=== PATIENT | female | born 1950 | race Caucasian/White ===

== ENCOUNTER → 2017-11-27 | Outpatient (REF) | payer MEDICARE, MEDICAID, SELFPAY | LOC: LAB 13:29 | PROVIDERS: PCP Nurse Practitioner Family; Visit Provider Nurse Practitioner Family | DX: G47.419 Narcolepsy without cataplexy (principal) | CPT/HCPCS: 84146 ==

== ENCOUNTER → 2018-01-01 18:24 | Outpatient (REF) | payer MEDICARE, MEDICAID, SELFPAY | LOC: LAB 18:24 | PROVIDERS: PCP Nurse Practitioner Family; Visit Provider Internal Medicine | DX: R35.0 Frequency of micturition (principal); R52 Pain, unspecified | CPT/HCPCS: 87077; 87086; 87186 ==

== ENCOUNTER → 2018-01-24 18:12 | Outpatient (REF) | payer MEDICARE, MEDICAID, SELFPAY ==
[2018-01-24 18:19] LABS: RBC Urine None Seen (0-5/HPF)
[2018-01-24 18:22] LABS: Appearance Urine UA CLEAR; Bilirubin Urine UA NEGATIVE (NEGATIVE); Color Urine UA YELLOW; Glucose Urine UA NEGATIVE (Normal); Ketones Urine UA NEGATIVE (NEGATIVE); Leukocyte Esterase Urine UA NEGATIVE (NEGATIVE); Nitrite Urine UA POSITIVE (Negative); Occult Blood Urine UA NEGATIVE (Negative); Protein Urine UA NEGATIVE (Negative); Specific Gravity Urine UA 1.015 (1.000-1.035); Urobilinogen Urine UA 0.2 E.U./dL (0.2); pH Urine UA 6.5 (4.5-8.0)
[2018-01-24 19:05] LABS: Bacteria Urine Many (>30); Culture Indicated Urine Specimen Cultured; Squamous Epithelial Cell Urine 0-1 /HPF; WBC Urine 1-5/HPF (0-5/HPF)
== END ==
LOC: LAB 18:12
PROVIDERS: PCP Nurse Practitioner Family; Visit Provider Registered Nurse
DX: N39.0 Urinary tract infection, site not specified (principal)
CPT/HCPCS: 81001; 87077; 87086; 87186

== ENCOUNTER → 2018-02-05 08:02 | Outpatient (REF) | payer MEDICARE, MEDICAID, SELFPAY ==
[2018-02-05 08:55] LABS: Add Manual Diff / Slide Review NO; Basophils Percent Auto 0.4 % (0-2); Eosinophils Percent Auto 2.9 % (2-4); Hematocrit 38.3 % (36-46); Hemoglobin 12.8 g/dL (12.0-16.0); Lymphocytes Percent Auto 31.5 % (25-40); Mean Corpuscular HGB Conc 33.5 % (30-36); Mean Corpuscular Hemoglobin 28.5 PG (26-34); Monocytes Percent Auto 7.5 % (3-14); Neutrophils Absolute Auto 2600 /uL (3000-5900); Neutrophils Percent Auto 57.7 % (50-75); Platelet Count 98 X10^3/uL (150-400); Red Blood Cell Count 4.51 X10^6/uL (4.0-5.2); Red Cell Distribution Width 14.5 % (11.6-14.8); White Blood Cell Count 4.5 X10^3/uL (4.5-11.0)
[2018-02-05 08:57] LABS: Alanine Aminotransferase 27 IU/L (9-52); Albumin 3.9 g/dL (3.5-5.0); Albumin Globulin Ratio 1.3 (1.0-2.8); Alkaline Phosphatase 55 U/L (38-126); Aspartate Aminotransferase 16 IU/L (14-36); BUN Creatinine Ratio 17.5 (6-22); Bilirubin Total 0.4 mg/dL (0.2-1.3); Blood Urea Nitrogen 21 mg/dL (7-17); Calcium 9.3 mg/dL (8.4-10.2); Carbon Dioxide 27 mmol/L (22-32); Chloride 104 mmol/L (98-107); Estimated Glomerular Filt Rate 44.8 mL/min (>60); Glucose 103 mg/dL (80-110); HEMOLYSIS < 15 (0-50); Potassium 4.2 mmol/L (3.4-5.1); Sodium 141 mmol/L (137-145); Total Protein 6.9 g/dL (6.3-8.2)
== END ==
LOC: LAB 08:02
PROVIDERS: PCP Nurse Practitioner Family; Visit Provider Internal Medicine
DX: N18.9 Chronic kidney disease, unspecified (principal)
CPT/HCPCS: 36415; 80053; 85025

== ENCOUNTER → 2018-02-20 15:02 | Outpatient (CLI) | payer MEDICARE, MEDICAID, SELFPAY ==
--- NOTE | 2018-02-20 | DI.CT.S_ITS ---
PROCEDURE: CT CHEST WO CON INDICATIONS: LEFT LUNG NODULE TECHNIQUE: Noncontrast 2.0-2.5 mm thick sections acquired from the pulmonary apices to the posterior costophrenic angles. 7 mm thick coronal and sagittal MIP reformats were then acquired. A low radiation dose technique was utilized. COMPARISON: [facility], CT, UPPER EXTREMITY WO CONTRAST, 09/26/2017, 13:05. FINDINGS: Image quality: Diagnostic, given the low radiation dose technique. Lungs and pleura: A 3 x 5 mm nodule at the lateral left upper lobe, series 3 image 24, correlates with the area of incidentally noted focal airspace disease 09/26/[address] workup for shoulder fracture. Mediastinum: Heart size is normal. No pericardial effusion. No mediastinal adenopathy by size criteria. Thoracic aorta and central pulmonary arteries are normal in size. Esophagus is normal in caliber. No hiatal hernia. Bones and chest wall: No suspicious bony lesions. No vertebral body compression fractures. No axillary or supraclavicular adenopathy by size criteria. Thyroid gland appears normal where well visualized. Abdomen: Visualized upper abdomen solid organs and bowel loops appear normal in the absence of contrast. IMPRESSION: 3 x 5 mm nodule stable over time lateral left upper lobe, found incidentally and without any additional lesion elsewhere. A small nodule of this size would generally not received followup in the low-risk patient and optional A. in a high risk patient could receive followup CT scanning, noncontrast, to confirm stability over time in 12 months from now. Fleischner Society criteria for SOLID lung nodule followup. Nodule size (mm)Low-risk patientHigh-risk patient<6 (single or multiple)No routine followup.Optional CT at 12 months. 6-8 (single or multiple)CT at 6-12 months, then optional CT at 18-24 mo.CT at 6-12 months, then CT at 18-24 months. >8 (single)CT at 3 months, PET-CT, or biopsy. Same as for low-risk pts. >8 (multiple)CT at 3-6 months, then optional CT at 18-24 mo.CT at 3-6 months, then CT at 18-24 months. Dictated by: Shayne Villanueva M.D. on 02/20/2018 at 16:37 Approved by: Shayne Villanueva M.D. on 02/20/2018 at 16:41
== END ==
PROVIDERS: PCP Nurse Practitioner Family; Visit Provider Nurse Practitioner Family
DX: R91.1 Solitary pulmonary nodule (principal)
CPT/HCPCS: 71250

== ENCOUNTER 2018-02-22 19:26 | Emergency (ER) | payer MEDICARE, MEDICAID, SELFPAY ==
[2018-02-22 19:46] VITALS: BP 167/98; PULSE 63; RESP 18; TEMP 36.3; O2SAT 97; BMI 32.2
[2018-02-22 22:07] VITALS: BP 179/90; PULSE 60; RESP 18; TEMP 36.6; O2SAT 96
--- NOTE | 2018-02-22 23:22 | ED.BACK ---
HPI - Back Pain/Injury General Chief Complaint: Back Pain/Injury Stated Complaint: FELL A COUPLE DAYS AGO,BACK PAIN Time Seen by Provider: 02/22/18 22:06 Source: patient Mode of arrival: ambulatory Limitations: no limitations History of Present Illness HPI Narrative: 67-year-old female presents with a chief complaint of some lumbar pain since a fall few days ago. She states she self fell backwards onto her buttocks and has had slowly worsening pain over the past few days. She denies any head or neck pain. She denies chest pain or shortness of breath. She denies any numbness, tingling or weakness down her legs. Patient denies any trouble with bowel or bladder. Patient had a CT scan of her chest just a day or 2 ago to further evaluate pulmonary nodule and the CT did not see any fractured vertebral bodies or other MD Complaint: back pain Onset (ago): day(s) Duration: constant Similar Symptoms Previously: Yes Location: lumbar spine and sacrum Severity: moderate Quality: aching Radiation: none Relieving factors: supine Exacerbating factors: movement and walking Context: fall Associated symptoms: denies other symptoms Related Data Home Medications Medication Instructions Recorded Confirmed acetaminophen ER 650 mg 650 mg PO Q4H PRN tab 02/18/18 02/18/18 tablet,extended release aspirin 81 mg tablet,delayed 81 mg PO DAILY 02/18/18 02/18/18 release atenolol 25 mg tablet 25 mg PO DAILY 02/18/18 02/18/18 atorvastatin 20 mg tablet 20 mg PO DAILY 02/18/18 02/18/18 lisinopril 20 mg tablet 20 mg PO DAILY 02/18/18 02/18/18 modafinil 200 mg tablet 200 mg PO DAILY 02/18/18 02/18/18 oxybutynin chloride ER 5 mg 2.5 mg PO BID tab 02/18/18 02/18/18 tablet,extended release 24 hr venlafaxine 75 mg tablet 75 mg PO DAILY tab 02/18/18 02/18/18 Allergies Allergy/AdvReac Type Severity Reaction Status Date / Time No Known Drug Allergies Allergy Verified 02/18/18 11:24 Review of Systems Review of Systems All systems reviewed & are unremarkable except as noted in HPI and below Constitutional Denies chills, Denies fever(s), Denies lethargy and Denies weakness Eyes Denies change in vision, Denies eye discharge, Denies irritation and Denies loss of vision ENT Ears, Nose, Mouth, and Throat: Denies change in voice, Denies neck pain and Denies sore throat Cardiovascular Denies chest pain, Denies irregular heart rhythm, Denies lightheadedness, Denies palpitations, Denies dyspnea, Denies dyspnea on exertion and Denies orthopnea Respiratory Denies cough, Denies dyspnea, Denies dyspnea on exertion and Denies wheezing Gastrointestinal Gastrointestinal: Denies abdominal pain, Denies change in bowel habits, Denies diarrhea, Denies nausea and Denies vomiting Genitourinary Denies hematuria, Denies flank pain, Denies urinary incontinence and Denies urinary urgency Musculoskeletal Reports back pain and Denies neck pain Integumentary/Breasts Denies pruritus, Denies erythema, Denies rash and Denies wounds Neurologic Denies confusion, Denies loss of vision and Denies weakness Psychiatric Denies anxiety, Denies confusion, Denies depression, Denies homicidal ideation and Denies suicidal ideation Endocrine Denies palpitations Hematologic/Lymphatic Denies easy bruising Allergic/Immunologic Denies wheezing PFSH Medical History Hypertension (Acute) Narcolepsy and cataplexy (Acute) Stroke (Acute) Surgical History History of section (Acute) Social History Smoking Status: Former smoker alcohol intake: never substance use type: does not use caffeine: Yes (12 cups a day) Exam Initial Vital Signs Initial Vital Signs: Vital Signs Temperature 97.3 F L 02/22/18 19:46 Pulse Rate 63 02/22/18 19:46 Respiratory Rate 18 02/22/18 19:46 Blood Pressure 167/98 H 02/22/18 19:46 Pulse Oximetry 97 02/22/18 19:46 Const General: cooperative and well developed Nutritional Appearance: well nourished Orientation: alert, awake, oriented x3 and not confused [facility] Head: normocephalic and atraumatic Ears: external ears normal and TM's normal bilaterally Nose: external nose normal and No nasal discharge Face and sinus: sinuses nontender, face symmetric, no sinus tenderness and No dry mucous membranes Mouth: oral mucosae normal and moist mucous membranes Teeth and gingiva: dentition normal Throat: tonsils normal and uvula midline Neck Neck: normal visual inspection, trachea midline, No lymphadenopathy, No midline deformity and No JVD Lymphatic: No lymphedema Resp Effort & Inspection: normal respiratory effort, able to speak in complete sentences, no respiratory distress and no use of accessory muscles Auscultation: clear to auscultation bilaterally, no rales, no rhonchi and no wheezes GI Inspection: non-distended Palpation: soft, no hepatosplenomegaly, No guarding, No pulsatile mass and No tender Auscultation: normal bowel sounds Back/Spine/Pelvis Back: back tenderness Thoracic/Lumbar Spine: thoraco-lumbar spasm and No lumbar spinal tenderness Other: Patient has no midline bony point tenderness, only in the paraspinal muscles Course Reevaluation(s) Reevaluation #1: X-rays had been ordered and patient refused and decided to leave instead, against medical advice. She refused to wait for discharge instructions or any further discussion about risks and benefits Vital Signs - 8 hr 02/22/18 22:07 Temperature 97.8 F Pulse Rate 60 Respiratory Rate 18 Blood Pressure [Left Arm] 179/90 H Pulse Oximetry 96 Discharge Plan Departure Patient Disposition: Left Against Medical Advice Discharge Date/Time: 02/22/18 23:30 Interventions: ED Discharge Assessment Last Done: 02/22/18 23:57 Prescriptions: No Action atorvastatin 20 mg tablet 20 mg PO DAILY RF: 0 venlafaxine 75 mg tablet 75 mg PO DAILY RF: 0 lisinopril 20 mg tablet 20 mg PO DAILY RF: 0 atenolol 25 mg tablet 25 mg PO DAILY RF: 0 aspirin 81 mg tablet,delayed release (DR/EC) 81 mg PO DAILY RF: 0 acetaminophen 650 mg tablet extended release 650 mg PO Q4H PRN (Reason: pain) RF: 0 modafinil 200 mg tablet 200 mg PO DAILY RF: 0 oxybutynin chloride 5 mg tablet extended release 24hr 2.5 mg PO BID RF: 0 Stand Alone Forms: Against Medical Advice
== END 2018-02-22 23:30 | disposition left against medical advice (07) ==
PROVIDERS: Emergency Provider Emergency Medicine; PCP Internal Medicine
DX: M54.9 Dorsalgia, unspecified (principal)
CPT/HCPCS: 99281; 99282

== ENCOUNTER 2018-03-08 11:13 | Emergency (ER) | payer MEDICARE, MEDICAID, SELFPAY ==
[2018-03-08 11:19] VITALS: BP 147/78; PULSE 64; RESP 18; TEMP 36.6; O2SAT 100
[2018-03-08 11:39] VITALS: BP 100/81; PULSE 62; RESP 22; O2SAT 96
[2018-03-08 11:51] LABS: Add Manual Diff / Slide Review NO; Basophils Percent Auto 0.7 % (0-2); Eosinophils Percent Auto 2.7 % (2-4); Hematocrit 37.9 % (36-46); Hemoglobin 12.7 g/dL (12.0-16.0); Lymphocytes Percent Auto 26.4 % (25-40); Mean Corpuscular HGB Conc 33.6 % (30-36); Mean Corpuscular Hemoglobin 28.9 PG (26-34); Mean Corpuscular Volume 85.9 fL (80-100); Monocytes Percent Auto 9.6 % (3-14); Neutrophils Absolute Auto 2900 /uL (3000-5900); Neutrophils Percent Auto 60.6 % (50-75); Platelet Count 130 X10^3/uL (150-400); Red Blood Cell Count 4.41 X10^6/uL (4.0-5.2); Red Cell Distribution Width 14.5 % (11.6-14.8); White Blood Cell Count 4.7 X10^3/uL (4.5-11.0)
[2018-03-08 12:03] LABS: Alanine Aminotransferase 26 IU/L (9-52); Albumin Globulin Ratio 1.4 (1.0-2.8); Alkaline Phosphatase 86 U/L (38-126); Aspartate Aminotransferase 21 IU/L (14-36); BUN Creatinine Ratio 23.6 (6-22); Bilirubin Total 0.6 mg/dL (0.2-1.3); Blood Urea Nitrogen 26 mg/dL (7-17); Calcium 9.5 mg/dL (8.4-10.2); Carbon Dioxide 31 mmol/L (22-32); Chloride 101 mmol/L (98-107); Creatine Kinase 65 U/L (30-135); Estimated Glomerular Filt Rate 49.5 mL/min (>60); Globulin 2.9 g/dL (1.7-4.1); Glucose 95 mg/dL (80-110); HEMOLYSIS 23 (0-50); Potassium 4.6 mmol/L (3.4-5.1); Sodium 141 mmol/L (137-145); Total Protein 6.9 g/dL (6.3-8.2)
[2018-03-08 12:15] LABS: Troponin I < 0.012 ng/mL (0.01-0.034)
[2018-03-08 13:02] VITALS: BP 131/71; PULSE 57; RESP 14; O2SAT 98
[2018-03-08 14:37] LABS: Bacteria Urine None Seen; WBC Urine None Seen (0-5/HPF)
[2018-03-08 14:38] LABS: Culture Indicated Urine Cult Not Indicated; RBC Urine 0-1/HPF (0-5/HPF)
--- NOTE | 2018-03-08 15:16 | ED.DIZZY ---
HPI - Dizziness General Chief Complaint: Syncope Stated Complaint: Seizure History of Present Illness HPI Narrative: HPI 67-year-old female with history of narcolepsy and cataplexy presents for evaluation of a brief period of weakness in which she collapsed to the ground without LOC. Patient reports that she felt both legs shaking, she then slumped to the ground, the patient sustained no trauma when she fell to the ground, but is concerned that she had a seizure. Patient reports similar prior episodes that she attributes to seizures. Patient denies losing consciousness during these events but will slumped to the ground with shaking of her bilateral lower extremities. * Denies chest pain, shortness of breath, double vision, neck pain, vertigo, headache, arm pain, arm paresthesias, arm numbness, or focal weakness or sensory at change now or the time of their event. * Denies recent chiropractic manipulation of their neck, neck trauma or strains. * Denies incontinence, denies post-syncope confusion. M/S/F/SocHx notable for: please see HPI; remainder reviewed with patient and in chart. ROS: Negative constitutional, eye, cardiovascular, pulmonary, GI, , MSK, skin, neurologic, psychiatric, endocrine unless noted in the HPI. Exam Gen: Pleasant, non-toxic appearing, resting comfortably. HEENT: NC, AT, PEERL, EOMI. Resp: Clear to auscultation bilaterally with a normal work of breathing and no accessory muscle usage. Card: Regular rate and rhythm with no murmurs rubs or gallops, extremities are warm and well perfused, no JVD. GI: Nontender to palpation throughout all quadrants, nondistended : Deferred MSK: No visible deformities, strength and tone WNL. Skin: Normal color with no visible lesions. Neuro: Gen AO x 3, no facial asymmetry, no gaze preference, no slurring of speech. Pupils equal and reactive, EOMI, no facial asymmetry, no nystagmus, phonation intact, SCM 5/5 bilaterally. Cerebellar: bilateral upper extremities without dysmetria. Psych: Mood and affect appropriate. Labs / Imaging (pertinent): WBC 4.7, HB 12.7, NA 141, K 4.6, troponin <0.012 EKG: SR at [address]-segment elevations or depressions, T-wave inversions or new LBBB. OK interval 168 msec, QTc 442 msec, no delta waves, epsilon waves, coved or saddle ST-segment changes in leads V1-3, preseptal or inferior lead Q-waves, biphasic P-waves, or T-wave inversions; no LVH. MDM Previous chart, nursing note, and vitals reviewed. A: 67-year-old female with history of narcolepsy and cataplexy presents for evaluation of a brief period of weakness in which she collapsed to the ground without LOC. DDx and evaluation: strongly suspect the patient had a brief spell of narcolepsy with cataplexy. Seizure effectively excluded given the absence of a documented seizure history, prescription of antiepileptics, and the patient maintaining consciousness while having shaking of the bilateral lower extremities. Also considered and felt to be effectively excluded are the following: * Anemia - Hemoglobin clinically within normal limits. * Cardiac - EKG labs and history without evidence of ACS, AV-block, WPW syndrome, Brugada syndrome, HCM, Long or Short QT-syndrome, or arrhythmogenic RV dysplasia. Heart sounds WNL on exam, no evidence of valvular abnormalities by history or auscultation. * Obstructive - Doubt PE, tamponade, or pulmonary hypertension based upon lack of shortness of breath, chest pain, or historical risk factors on history and the absence of hypoxemia, tachycardia, hypotension, or JVD on exam. * Vascular - As there are no identifiable risk factors on history (injury risk factors, vertiginous symptoms, diplopia, vision changes, TIA risk factors or prior similar events) further evaluation of a possible vertebrobasilar insufficiency. Furthermore, as the patient denies neck pain, recent neck trauma, and there is no evidence of a partial Lamonte's syndrome, a carotid or vertebral dissection is felt to be unlikely and imaging is not indicated. Similarly, the absence of focal arm symptoms and symmetric perfusion of the upper extremities effectively excludes emergent evaluation of any possible subclavian steal syndrome. Lastly, given the absence of chest pain aortic dissection further evaluation of any possible dissection is not warranted. Patient also without abdominal pain on history or exam, no evidence of AAA. * Electrolyte - Electrolytes clinically within normal limits. * Hypotension (hypovolemia vs vasovagal vs autonomic instability) - SBP clinically within normal limits. 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 ED Course: no acute clinically appreciable changes. Disposition: discharge with PCP follow-up as needed. Impression: cataplexy (please reference below for remainder of encounter information) Related Data Home Medications Medication Instructions Recorded Confirmed acetaminophen ER 650 mg 650 mg PO Q4H PRN tab 02/18/18 03/08/18 tablet,extended release atenolol 25 mg tablet 25 mg PO DAILY 02/18/18 03/08/18 atorvastatin 20 mg tablet 20 mg PO DAILY 02/18/18 03/08/18 lisinopril 20 mg tablet 20 mg PO DAILY 02/18/18 03/08/18 modafinil 200 mg tablet 200 mg PO DAILY 02/18/18 03/08/18 venlafaxine 75 mg tablet 75 mg PO DAILY tab 02/18/18 03/08/18 aspirin 81 mg PO DAILY 03/08/18 03/08/18 bisacodyl 5 - 10 mg PO PRN PRN 03/08/18 03/08/18 bisacodyl 10 mg OK PRN PRN 03/08/18 03/08/18 lidocaine 1 patch TOPICAL Q12H 03/08/18 03/08/18 Allergies Allergy/AdvReac Type Severity Reaction Status Date / Time No Known Drug Allergies Allergy Verified 02/18/18 11:24 PFSH Medical History Hypertension (Acute) Narcolepsy and cataplexy (Acute) Stroke (Acute) Surgical History History of section (Acute) Social History Smoking Status: Former smoker alcohol intake: never substance use type: does not use caffeine: Yes (12 cups a day) Exam Initial Vital Signs Initial Vital Signs: Vital Signs Temperature 98 F 03/08/18 11:19 Pulse Rate 64 03/08/18 11:19 Respiratory Rate 18 03/08/18 11:19 Blood Pressure 147/78 H 03/08/18 11:19 Pulse Oximetry 100 03/08/18 11:19 Course Orders Ordered: ED Orders 03/08/18 11:20 EKG-12 Lead Stat 03/08/18 11:45 Complete Blood Count AUTO DIFF Stat Comprehensive Metabolic Panel Stat Troponin & CK Cardiac Panel Stat Vital Signs - 8 hr 03/08/18 11:19 03/08/18 11:39 03/08/18 13:02 Temperature 98 F Pulse Rate 64 62 57 L Respiratory Rate 18 22 14 Blood Pressure 147/78 H Blood Pressure [Left Arm] 100/81 H 131/71 H Pulse Oximetry 100 96 98 MDM - Dizziness Lab Data Result diagrams: 03/08/18 11:45 03/08/18 11:45 Lab Results 03/08/18 03/08/18 03/08/18 Range/Units 11:45 11:45 Unknown WBC 4.7 (4.5-11.0) X10^3/uL RBC 4.41 (4.0-5.2) X10^6/uL Hgb 12.7 (12.0-16.0) g/dL Hct 37.9 (36-46) % MCV 85.9 (80-100) fL MCH 28.9 (26-34) PG MCHC 33.6 (30-36) % RDW 14.5 (11.6-14.8) % Plt Count 130 L (150-400) X10^3/uL Neut % (Auto) 60.6 (50-75) % Lymph % (Auto) 26.4 (25-40) % [place] % (Auto) 9.6 (3-14) % Eos % (Auto) 2.7 (2-4) % Baso % (Auto) 0.7 (0-2) % Neut # (Auto) 2900 L (9446-3824) /uL Sodium 141 (137-145) mmol/L Potassium 4.6 (3.4-5.1) mmol/L Chloride 101 (98-107) mmol/L Carbon Dioxide 31 (22-32) mmol/L BUN 26 H (7-17) mg/dL Creatinine 1.10 H (0.52-1.04) mg/dL Estimated GFR 49.5 L (>60) mL/min BUN/Creatinine Ratio 23.6 H (6-22) Glucose 95 (80-110) mg/dL Calcium 9.5 (8.4-10.2) mg/dL Total Bilirubin 0.6 (0.2-1.3) mg/dL AST 21 (14-36) IU/L ALT 26 (9-52) IU/L Alkaline Phosphatase 86 (38-126) U/L Total Creatine Kinase 65 (30-135) U/L Troponin I < 0.012 (0.01-0.034) ng/mL Total Protein 6.9 (6.3-8.2) g/dL Albumin 4.0 (3.5-5.0) g/dL Globulin 2.9 (1.7-4.1) g/dL Albumin/Globulin Ratio 1.4 (1.0-2.8) Urine RBC 0-1/hpf (0-5/HPF) Urine WBC None seen (0-5/HPF) Urine Bacteria None seen (None) Ur Culture Indicated? Cult not indicated Micro UA Comment Not Reportable Discharge Plan Departure Prescriptions: No Action bisacodyl 10 mg Suppository 10 mg OK PRN PRN (Reason: no bm x 5 days) RF: 0 aspirin 81 mg Tablet,Chewable 81 mg PO DAILY RF: 0 bisacodyl 5 mg Tablet 5 - 10 mg PO PRN PRN (Reason: no bm in 3-4 days) RF: 0 lidocaine 4 % Gel 1 patch Topical Q12H RF: 0 atorvastatin 20 mg tablet 20 mg PO DAILY RF: 0 venlafaxine 75 mg tablet 75 mg PO DAILY RF: 0 lisinopril 20 mg tablet 20 mg PO DAILY RF: 0 atenolol 25 mg tablet 25 mg PO DAILY RF: 0 acetaminophen 650 mg tablet extended release 650 mg PO Q4H PRN (Reason: pain) RF: 0 modafinil 200 mg tablet 200 mg PO DAILY RF: 0
[2018-03-08] MEDS: ACETAMINOPHEN 325 MG TABLET 975 MG PO (15:30)
[2018-03-08 15:40] VITALS: BP 182/97; PULSE 59; RESP 18; O2SAT 100
== END 2018-03-08 15:41 | disposition home or self-care (01) ==
PROVIDERS: Emergency Provider Emergency Medicine; PCP Internal Medicine
DX: G47.411 Narcolepsy with cataplexy (principal); W18.30XA Fall on same level, unspecified, initial encounter
CPT/HCPCS: 36591; 80053; 81003; 81015; 82550; 82553; 84484; 85025; 93005; 93010; 99283; 99284

== ENCOUNTER → 2018-03-21 13:44 | Outpatient (CLI) | payer MEDICARE, MEDICAID, SELFPAY ==
--- NOTE | 2018-03-21 | DI.RAD.S_ITS ---
PROCEDURE: XR LUMBAR SPINE 2-3V INDICATIONS: FALL TECHNIQUE: 3 views of the lumbar spine were acquired. COMPARISON: None. FINDINGS: Bones: 5 [id number] vertebrae are present. There is normal bony alignment. Age indeterminate anterior wedge compression deformity involving superior endplate of L2 vertebral body is seen with approximately 20% loss of L2 vertebral body height anteriorly. No other compression fracture is seen. Mild degenerative disc disease throughout lumbar spine is seen. No suspicious bony lesions. Soft tissues: Overlying bowel gas pattern is normal. No suspicious soft tissue calcifications. IMPRESSION: Age-indeterminate anterior wedge compression deformity involving L2 vertebral body. No evidence of traumatic spondylolisthesis. Dictated by: Sony Holland M.D. on 03/21/2018 at 14:27 Approved by: Sony Holland M.D. on 03/21/2018 at 14:28
--- NOTE | 2018-03-21 | DI.RAD.S_ITS ---
PROCEDURE: XR ANKLE LT MIN 3V INDICATIONS: FALL TECHNIQUE: 3 views of the ankle were acquired. COMPARISON: None. FINDINGS: Bones: No fractures or dislocations. Ankle mortise is normally aligned. No suspicious bony lesions. Soft tissues: No tibiotalar joint effusion. Achilles tendon appears normal. Soft tissue swelling around ankle joint is seen particularly over medial malleolus. IMPRESSION: No acute ankle fracture or dislocation. Dictated by: Sony Holland M.D. on 03/21/2018 at 14:26 Approved by: Sony Holland M.D. on 03/21/2018 at 14:27
== END ==
PROVIDERS: PCP Internal Medicine; Visit Provider Internal Medicine
DX: S99.912A Unspecified injury of left ankle, initial encounter (principal); S39.92XA Unspecified injury of lower back, initial encounter; M25.472 Effusion, left ankle
CPT/HCPCS: 72100; 73610

== ENCOUNTER → 2018-04-02 08:35 | Outpatient (CLI) | payer MEDICARE, MEDICAID, SELFPAY ==
--- NOTE | 2018-04-02 | DI.US.S_ITS ---
PROCEDURE: US PERIPH VENOUS LOW EXTREM LT INDICATIONS: PAIN AND SWELLING LEFT LOWER EXTREMITY TECHNIQUE: Real-time imaging, as well as color and pulse Doppler interrogation, were performed of the lower extremity deep veins from the inguinal ligament to the popliteal fossa. COMPARISON: None. FINDINGS: The deep veins are normally compressible, and free of intraluminal thrombus. Color and pulse Doppler demonstrate normal phasic intraluminal flow. There is normal augmentation response to distal compression maneuver. IMPRESSION: No evidence of left lower extremity deep vein thrombosis. Dictated by: Roc Doyle M.D. on 04/02/2018 at 9:12 Approved by: Roc Doyle M.D. on 04/02/2018 at 9:12
== END ==
PROVIDERS: PCP Internal Medicine; Visit Provider Nurse Practitioner Family
DX: M79.89 Other specified soft tissue disorders (principal); M79.605 Pain in left leg
CPT/HCPCS: 93971

== ENCOUNTER → 2018-06-25 07:45 | Outpatient (REF) | payer MEDICARE, MEDICAID, SELFPAY ==
[2018-06-25 08:10] LABS: Add Manual Diff / Slide Review NO; Basophils Percent Auto 0.2 % (0-2); Eosinophils Percent Auto 0.2 % (2-4); Hematocrit 40.7 % (36-46); Hemoglobin 13.3 g/dL (12.0-16.0); Lymphocytes Percent Auto 38.2 % (25-40); Mean Corpuscular HGB Conc 32.6 % (30-36); Mean Corpuscular Hemoglobin 28.3 PG (26-34); Mean Corpuscular Volume 86.8 fL (80-100); Monocytes Percent Auto 7.7 % (3-14); Neutrophils Absolute Auto 2200 /uL (3000-5900); Neutrophils Percent Auto 53.7 % (50-75); Platelet Count 95 X10^3/uL (150-400); Red Blood Cell Count 4.69 X10^6/uL (4.0-5.2); Red Cell Distribution Width 14.1 % (11.6-14.8); White Blood Cell Count 4.1 X10^3/uL (4.5-11.0)
[2018-06-25 08:22] LABS: Blood Urea Nitrogen 24 mg/dL (7-17); Calcium 8.9 mg/dL (8.4-10.2); Carbon Dioxide 28 mmol/L (22-32); Chloride 103 mmol/L (98-107); Estimated Glomerular Filt Rate 55.1 mL/min (>60); Glucose 95 mg/dL (80-110); HEMOLYSIS 47 (0-50); Potassium 4.4 mmol/L (3.4-5.1); Sodium 141 mmol/L (137-145)
== END ==
LOC: LAB 07:45
PROVIDERS: PCP Internal Medicine; Visit Provider Internal Medicine
DX: I10 Essential (primary) hypertension (principal)
CPT/HCPCS: 36415; 80048; 85025

== ENCOUNTER → 2018-08-13 07:36 | Outpatient (REF) | payer MEDICARE, MEDICAID, SELFPAY ==
[2018-08-13 09:13] LABS: BUN Creatinine Ratio 21.7 (6-22); Blood Urea Nitrogen 26 mg/dL (7-17); Calcium 9.6 mg/dL (8.4-10.2); Carbon Dioxide 27 mmol/L (22-32); Chloride 104 mmol/L (98-107); Estimated Glomerular Filt Rate 44.7 mL/min (>60); Glucose 132 mg/dL (80-110); HEMOLYSIS < 15 (0-50); Potassium 4.4 mmol/L (3.4-5.1); Sodium 139 mmol/L (137-145)
== END ==
LOC: LAB 07:36
PROVIDERS: PCP Internal Medicine; Visit Provider Nurse Practitioner Family
DX: I10 Essential (primary) hypertension (principal)
CPT/HCPCS: 36415; 80048

== ENCOUNTER → 2018-08-29 07:37 | Outpatient (REF) | payer MEDICARE, MEDICAID, SELFPAY ==
[2018-08-29 08:16] LABS: Blood Urea Nitrogen 30 mg/dL (7-17); Calcium 9.4 mg/dL (8.4-10.2); Carbon Dioxide 28 mmol/L (22-32); Chloride 101 mmol/L (98-107); Estimated Glomerular Filt Rate 55.1 mL/min (>60); Glucose 99 mg/dL (80-110); HEMOLYSIS 40 (0-50); Potassium 4.2 mmol/L (3.4-5.1); Sodium 137 mmol/L (137-145)
== END ==
LOC: LAB 07:37
PROVIDERS: PCP Internal Medicine; Visit Provider Nurse Practitioner Family
DX: I10 Essential (primary) hypertension (principal); Z79.899 Other long term (current) drug therapy
CPT/HCPCS: 36415; 80048

== ENCOUNTER → 2018-09-10 08:03 | Outpatient (REF) | payer MEDICARE, MEDICAID, SELFPAY ==
[2018-09-10 09:17] LABS: BUN Creatinine Ratio 20.8 (6-22); Blood Urea Nitrogen 25 mg/dL (7-17); Calcium 9.6 mg/dL (8.4-10.2); Carbon Dioxide 27 mmol/L (22-32); Chloride 102 mmol/L (98-107); Estimated Glomerular Filt Rate 44.7 mL/min (>60); Glucose 107 mg/dL (80-110); HEMOLYSIS < 15 (0-50); Potassium 4.3 mmol/L (3.4-5.1); Sodium 137 mmol/L (137-145)
== END ==
LOC: LAB 08:03
PROVIDERS: PCP Internal Medicine; Visit Provider Nurse Practitioner Family
DX: N18.9 Chronic kidney disease, unspecified (principal)
CPT/HCPCS: 36415; 80048

== ENCOUNTER → 2018-10-01 07:14 | Outpatient (REF) | payer MEDICARE, MEDICAID, SELFPAY ==
[2018-10-10 13:35] LABS: Hepatitis B Surface Antigen NONREACTIVE
[2018-10-10 13:36] LABS: Hepatitis A Antibody IgM NONREACTIVE; Hepatitis B Core Antibody IgM NONREACTIVE
[2018-10-10 13:37] LABS: Hepatitis C Antibody REACTIVE
== END ==
LOC: LAB 07:14
PROVIDERS: PCP Internal Medicine; Visit Provider Nurse Practitioner Family
DX: Z20.5 Contact with and (suspected) exposure to viral hepatitis (principal)
CPT/HCPCS: 36415; 80074

== ENCOUNTER → 2018-10-10 07:55 | Outpatient (REF) | payer MEDICARE, MEDICAID, SELFPAY ==
[2018-10-10 08:28] LABS: Add Manual Diff / Slide Review NO; Basophils Absolute Auto 0 /uL (0-100); Basophils Percent Auto 0.2 % (0-2); Eosinophils Absolute Auto 0 /uL (0-450); Hematocrit 39.3 % (36-46); Hemoglobin 12.7 g/dL (12.0-16.0); Lymphocytes Absolute Auto 1700 /uL (1100-4500); Lymphocytes Percent Auto 34.9 % (25-40); Mean Corpuscular HGB Conc 32.4 % (30-36); Mean Corpuscular Hemoglobin 28.2 PG (26-34); Mean Corpuscular Volume 87.2 fL (80-100); Monocytes Absolute Auto 500 /uL (0-900); Neutrophils Absolute Auto 2700 /uL (1500-7000); Neutrophils Percent Auto 53.9 % (50-75); Platelet Count 110 X10^3/uL (150-400); Red Blood Cell Count 4.51 X10^6/uL (4.0-5.2); Red Cell Distribution Width 14.3 % (11.6-14.8); White Blood Cell Count 4.9 X10^3/uL (4.5-11.0)
[2018-10-10 08:45] LABS: BUN Creatinine Ratio 21.7 (6-22); Blood Urea Nitrogen 26 mg/dL (7-17); Calcium 9.5 mg/dL (8.4-10.2); Carbon Dioxide 30 mmol/L (22-32); Chloride 97 mmol/L (98-107); Estimated Glomerular Filt Rate 44.7 mL/min (>60); Glucose 107 mg/dL (80-110); HEMOLYSIS < 15 (0-50); Potassium 3.8 mmol/L (3.4-5.1); Sodium 136 mmol/L (137-145)
== END ==
LOC: LAB 07:55
PROVIDERS: PCP Internal Medicine; Visit Provider Nurse Practitioner Family
DX: N18.9 Chronic kidney disease, unspecified (principal); Z79.899 Other long term (current) drug therapy
CPT/HCPCS: 36415; 80048; 85025

== ENCOUNTER → 2018-10-30 12:45 | Outpatient (CLI) | payer MEDICARE, MEDICAID, SELFPAY ==
--- NOTE | 2018-10-30 | DI.MG.S_ITS ---
BILATERAL DIGITAL DIAGNOSTIC MAMMOGRAM 3D/2D: 10/30/2018 CLINICAL: Left breast pain. Comparison is made to exams dated: 08/26/2013 mammogram - [facility], 11/06/2017 mammogram - [facility], and 08/04/2013 mammogram - [facility]. There are scattered fibroglandular elements in both breasts. There is a stable benign irregular mass with dystrophic calcifications in the right axillary tail. There is a biopsy clip associated with the mass. No significant changes. Corresponding to the patient's area of pain in the left axillary tail, there are no suspicious mammographic findings. Benign appearing lymph nodes are present. No other suspicious masses or calcifications are seen in either breast. IMPRESSION: INCOMPLETE: NEEDS ADDITIONAL IMAGING EVALUATION No mammographic findings to correspond to patient's area of pain. An ultrasound for further evaluation is recommended and was performed immediately following this exam. Post biopsy findings in the right upper outer breast are stable compared to prior. Patient should return to yearly screening mammography. This exam was interpreted at Station ID: [id number]. NOTE: For mammograms, a report in lay terms will be sent to the patient. Approximately 15% of breast malignancies will not be visualized mammographically. In the management of a palpable breast mass, a negative mammogram must not discourage biopsy of a clinically suspicious lesion. Electronically Signed By: Janine hodges/:10/30/2018 14:42:21 ACR BI-RADS Category 0: Incomplete [id number]
--- NOTE | 2018-10-30 | DI.US.S_ITS ---
ULTRASOUND OF LEFT BREAST AND AXILLA: 10/30/2018 CLINICAL: Focal left axilla pain. Comparison is made to exams dated: 10/30/2018 mammogram and 11/06/2017 mammogram - [facility]. Ultrasound of the left breast and axilla was performed. No abnormalities were seen sonographically in the left breast or the left axilla in the patient's area of pain. IMPRESSION: NEGATIVE There is no sonographic evidence of malignancy or other finding to correlate to patient's area of pain. A 1 year screening mammogram is recommended. Findings and recommendations were conveyed to the patient. This exam was interpreted at Station ID: [id number]. Electronically Signed By: Janine hodges/:10/30/2018 14:46:28 letter sent: Normal Exam Ultrasound BI-RADS: 1 Negative
== END ==
PROVIDERS: PCP Internal Medicine; Visit Provider Internal Medicine
DX: R92.8 Other abnormal and inconclusive findings on diagnostic imaging of breast (principal); N64.4 Mastodynia
CPT/HCPCS: 76642; 77066; G0279

== ENCOUNTER → 2018-11-15 11:02 | Outpatient (CLI) | payer MEDICARE, MEDICAID, SELFPAY ==
--- NOTE | 2018-11-15 | DI.MRI.S_ITS ---
PROCEDURE: MR THORACIC SPINE WO CON INDICATIONS: CHRONIC BACK PAIN TECHNIQUE: Noncontrast sagittal T1 spine echo and T2 fast spin echo, sagittal STIR, axial T1 and T2 fast spin echo through the thoracic spine. COMPARISON: None. FINDINGS: Image quality: Excellent. Alignment and Curvature: There is normal bony alignment. Convex left curvature of the cervicothoracic junction noted. Bones: Mild reactive endplate change is noted adjacent to the T1-T2, T2-T3, T3-T4 and T10-T11 discs. Schmorl's node noted in the superior endplate of the T11 vertebral body with reactive change. No acute vertebral body compression fractures. Spinal Cord: Visualized spinal cord is normal in size and signal. Paraspinous Soft Tissues: No paravertebral masses. Bilateral renal cysts are noted. Miscellaneous: Moderate degenerative changes noted throughout the thoracic spine. Mild facet arthropathy noted throughout the thoracic spine. No central stenosis. No significant neural foraminal narrowing. No neural impingement. IMPRESSION: 1. Multilevel degenerative disc disease. 2. Multilevel facet arthropathy. 3. No neural foraminal narrowing 4. No significant neural foraminal narrowing. 5. No neural impingement. 6. No vertebral body compression fractures. 7. T11 superior endplate Schmorl's node which may be acute. Dictated by: Leslie Beverly MD, PhD on 11/15/2018 at 16:57 Approved by: Leslie Beverly MD, PhD on 11/15/2018 at 17:03
== END ==
PROVIDERS: PCP Internal Medicine; Visit Provider Nurse Practitioner Family
DX: M54.89 Other dorsalgia (principal); M51.34 Other intervertebral disc degeneration, thoracic region; M50.90 Cervical disc disorder, unspecified, unspecified cervical region; M12.88 Other specific arthropathies, not elsewhere classified, other specified site
CPT/HCPCS: 72146

== ENCOUNTER → 2018-12-10 09:48 | Outpatient (ROUT) | payer MEDICARE, MEDICAID, SELFPAY ==
[2018-12-10 10:12] LABS: Add Manual Diff / Slide Review NO; Basophils Absolute Auto 0 /uL (0-100); Basophils Percent Auto 0.3 % (0-2); Eosinophils Absolute Auto 0 /uL (0-450); Eosinophils Percent Auto 0.1 % (2-4); Hematocrit 40.3 % (36-46); Hemoglobin 13.3 g/dL (12.0-16.0); Lymphocytes Absolute Auto 1400 /uL (1100-4500); Lymphocytes Percent Auto 28.3 % (25-40); Mean Corpuscular Hemoglobin 28.3 PG (26-34); Mean Corpuscular Volume 85.7 fL (80-100); Monocytes Absolute Auto 400 /uL (0-900); Monocytes Percent Auto 8.8 % (3-14); Neutrophils Absolute Auto 3200 /uL (1500-7000); Neutrophils Percent Auto 62.5 % (50-75); Platelet Count 143 X10^3/uL (150-400)
[2018-12-10 10:28] LABS: Alanine Aminotransferase 58 IU/L (9-52); Albumin Globulin Ratio 1.2 (1.0-2.8); Alkaline Phosphatase 94 U/L (38-126); Aspartate Aminotransferase 36 IU/L (14-36); BUN Creatinine Ratio 26.4 (6-22); Bilirubin Total 0.3 mg/dL (0.2-1.3); Blood Urea Nitrogen 29 mg/dL (7-17); Calcium 9.6 mg/dL (8.4-10.2); Carbon Dioxide 28 mmol/L (22-32); Chloride 98 mmol/L (98-107); Estimated Glomerular Filt Rate 49.4 mL/min (>60); Globulin 3.3 g/dL (1.7-4.1); Glucose 102 mg/dL (80-110); HEMOLYSIS < 15 (0-50); Potassium 4.4 mmol/L (3.4-5.1); Sodium 137 mmol/L (137-145); Total Protein 7.3 g/dL (6.3-8.2)
[2018-12-10 10:51] LABS: Thyroid Stimulating Hormone 2.55 uIU/mL (0.47-4.68)
[2018-12-10 11:14] LABS: Vitamin B12 420 pg/mL (239-931)
== END ==
PROVIDERS: PCP Internal Medicine; Visit Provider Internal Medicine
DX: R53.83 Other fatigue (principal)
CPT/HCPCS: 36415; 80053; 82607; 84443; 85025

== ENCOUNTER → 2019-03-13 07:37 | Outpatient (ROUT) | payer MEDICARE, MEDICAID, SELFPAY ==
[2019-03-13 08:05] LABS: BUN Creatinine Ratio 20.9 (6-22); Blood Urea Nitrogen 23 mg/dL (7-17); Calcium 9.8 mg/dL (8.4-10.2); Carbon Dioxide 31 mmol/L (22-32); Chloride 99 mmol/L (98-107); Estimated Glomerular Filt Rate 49.2 mL/min (>60); Glucose 102 mg/dL (80-110); HEMOLYSIS < 15 (0-50); Potassium 4.2 mmol/L (3.4-5.1); Sodium 138 mmol/L (137-145)
== END ==
PROVIDERS: PCP Internal Medicine; Visit Provider Internal Medicine
DX: N18.9 Chronic kidney disease, unspecified (principal)
CPT/HCPCS: 36415; 80048

== ENCOUNTER → 2019-04-16 09:47 | Outpatient (CLI) | payer MEDICARE, MEDICAID, SELFPAY ==
--- NOTE | 2019-04-16 | DI.RAD.S_ITS ---
PROCEDURE: XR SHOULDER LT MIN 2V INDICATIONS: LT SHOULDER PAIN TECHNIQUE: 3 views of the shoulder were acquired. COMPARISON: [facility] [place], JAMEL, XR SHOULDER 2+ VIEWS LEFT, 11/21/2017, 15:11. FINDINGS: Bones: There are healed fracture deformities from previously seen impacted proximal humeral fracture at the humeral neck. Subtle transverse lucency remains near the previously seen fracture site. No acute fractures. Left shoulder remain stable. No suspicious bony lesions. Visualized ribs appear intact. Degenerative changes of the left a.c. joint. Soft tissues: No suspicious soft tissue calcifications. IMPRESSION: 1. Healed fracture deformities of the proximal left humerus with subtle transverse lucency near the previously visualized fracture site. This may be secondary to superimposition of remote posttraumatic changes. However, if there is focal pain in this region, consider further evaluation with advanced imaging such as CT, MRI, or limited bone scan. 2. Mild degenerative changes of the left acromioclavicular joint. Dictated by: Ranulfo Camarena M.D. on 04/16/2019 at 11:34 Approved by: Ranulfo Camarena M.D. on 04/16/2019 at 11:37
== END ==
PROVIDERS: PCP Internal Medicine; Visit Provider Internal Medicine
DX: M25.512 Pain in left shoulder (principal)
CPT/HCPCS: 73030

== ENCOUNTER → 2019-06-12 08:20 | Outpatient (ROUT) | payer MEDICARE, MEDICAID, SELFPAY ==
[2019-06-12 08:55] LABS: Add Manual Diff / Slide Review NO; Basophils Absolute Auto 0 /uL (0-100); Basophils Percent Auto 0.1 % (0-2); Eosinophils Absolute Auto 0 /uL (0-450); Eosinophils Percent Auto 0.1 % (2-4); Hematocrit 37.5 % (36-46); Hemoglobin 12.7 g/dL (12.0-16.0); Lymphocytes Absolute Auto 1500 /uL (1100-4500); Lymphocytes Percent Auto 35.7 % (25-40); Mean Corpuscular Hemoglobin 29.7 PG (26-34); Mean Corpuscular Volume 87.3 fL (80-100); Monocytes Absolute Auto 400 /uL (0-900); Monocytes Percent Auto 9.8 % (3-14); Neutrophils Absolute Auto 2400 /uL (1500-7000); Neutrophils Percent Auto 54.3 % (50-75); Platelet Count 97 X10^3/uL (150-400); Red Blood Cell Count 4.29 X10^6/uL (4.0-5.2); Red Cell Distribution Width 14.1 % (11.6-14.8); White Blood Cell Count 4.3 X10^3/uL (4.5-11.0)
[2019-06-12 09:13] LABS: Blood Urea Nitrogen 26 mg/dL (7-17); Calcium 9.6 mg/dL (8.4-10.2); Carbon Dioxide 30 mmol/L (22-32); Chloride 100 mmol/L (98-107); Estimated Glomerular Filt Rate 40.6 mL/min (>60); Glucose 95 mg/dL (80-110); HEMOLYSIS < 15 (0-50); Potassium 4.1 mmol/L (3.4-5.1); Sodium 136 mmol/L (137-145)
== END ==
PROVIDERS: PCP Internal Medicine; Visit Provider Nurse Practitioner Family
DX: N18.9 Chronic kidney disease, unspecified (principal)
CPT/HCPCS: 36415; 80048; 85025

== ENCOUNTER → 2019-07-10 08:08 | Outpatient (ROUT) | payer MEDICARE, MEDICAID, SELFPAY ==
[2019-07-10 09:11] LABS: BUN Creatinine Ratio 22.3 (6-22); Blood Urea Nitrogen 29 mg/dL (7-17); Calcium 9.7 mg/dL (8.4-10.2); Carbon Dioxide 30 mmol/L (22-32); Chloride 102 mmol/L (98-107); Estimated Glomerular Filt Rate 40.6 mL/min (>60); Glucose 94 mg/dL (80-110); HEMOLYSIS < 15 (0-50); Potassium 4.1 mmol/L (3.4-5.1); Sodium 138 mmol/L (137-145)
== END ==
PROVIDERS: PCP Internal Medicine; Visit Provider Nurse Practitioner Family
DX: N18.9 Chronic kidney disease, unspecified (principal)
CPT/HCPCS: 36415; 80048

== ENCOUNTER → 2019-07-15 09:34 | Outpatient (CLI) | payer MEDICARE, MEDICAID, SELFPAY ==
--- NOTE | 2019-07-15 | DI.RAD.S_ITS ---
PROCEDURE: XR HAND LT MIN 3V INDICATIONS: hand trauma 5th finger and hand swelled TECHNIQUE: 3 views of the hand(s) acquired. COMPARISON: None. FINDINGS: Bones: Comminuted fracture since the midshaft of the fifth proximal phalanx. There is mild dorsal angulation of the distal fracture component.. Carpal bones are normally aligned. No suspicious bony lesions. Soft tissues: No suspicious soft tissue calcifications. IMPRESSION: Comminuted fifth proximal phalangeal mid shaft fracture. Dictated by: Romaine PETERSON Interpreted: Alysha Viveros MD on 07/15/2019 at 17:32 Approved by: Alysha Viveros M.D. on 07/15/2019 at 18:37
== END ==
PROVIDERS: PCP Internal Medicine; Visit Provider Internal Medicine
DX: S62.617A Displaced fracture of proximal phalanx of left little finger, initial encounter for closed fracture (principal); X58.XXXA Exposure to other specified factors, initial encounter
CPT/HCPCS: 73130

== ENCOUNTER → 2019-08-05 14:17 | Outpatient (ROUT) | payer MEDICARE, MEDICAID, SELFPAY ==
[2019-08-05 14:27] LABS: Add Manual Diff / Slide Review NO; Basophils Absolute Auto 0 /uL (0-100); Basophils Percent Auto 0.2 % (0-2); Eosinophils Absolute Auto 0 /uL (0-450); Eosinophils Percent Auto 0.2 % (2-4); Hematocrit 43.3 % (36-46); Hemoglobin 14.5 g/dL (12.0-16.0); Lymphocytes Absolute Auto 1900 /uL (1100-4500); Lymphocytes Percent Auto 33.9 % (25-40); Mean Corpuscular HGB Conc 33.6 % (30-36); Mean Corpuscular Hemoglobin 29.3 PG (26-34); Monocytes Absolute Auto 600 /uL (0-900); Monocytes Percent Auto 10.4 % (3-14); Neutrophils Absolute Auto 3100 /uL (1500-7000); Neutrophils Percent Auto 55.3 % (50-75); Platelet Count 136 X10^3/uL (150-400); Red Blood Cell Count 4.97 X10^6/uL (4.0-5.2); Red Cell Distribution Width 13.9 % (11.6-14.8); White Blood Cell Count 5.7 X10^3/uL (4.5-11.0)
[2019-08-05 15:05] LABS: Blood Urea Nitrogen 28 mg/dL (7-17); Calcium 10.4 mg/dL (8.4-10.2); Carbon Dioxide 26 mmol/L (22-32); Chloride 100 mmol/L (98-107); Estimated Glomerular Filt Rate 37.3 mL/min (>60); Glucose 94 mg/dL (80-110); HEMOLYSIS < 15 (0-50); Potassium 4.3 mmol/L (3.4-5.1); Sodium 139 mmol/L (137-145)
[2019-08-05 15:22] LABS: Prolactin 17.9 ng/mL (3.0-18.6)
== END ==
PROVIDERS: Visit Provider Internal Medicine
DX: R56.9 Unspecified convulsions (principal)
CPT/HCPCS: 80048; 83735; 84146; 85025

== ENCOUNTER → 2019-11-27 09:52 | Outpatient (ROUT) | payer MEDICARE, MEDICAID, SELFPAY ==
[2019-11-27 11:57] LABS: Add Manual Diff / Slide Review NO; Basophils Absolute Auto 0 /uL (0-100); Basophils Percent Auto 0.5 % (0-2); Eosinophils Absolute Auto 0 /uL (0-450); Eosinophils Percent Auto 0.1 % (2-4); Hematocrit 39.5 % (36-46); Hemoglobin 13.3 g/dL (12.0-16.0); Lymphocytes Absolute Auto 1600 /uL (1100-4500); Lymphocytes Percent Auto 35.5 % (25-40); Mean Corpuscular HGB Conc 33.7 % (30-36); Mean Corpuscular Hemoglobin 29.8 PG (26-34); Mean Corpuscular Volume 88.5 fL (80-100); Monocytes Absolute Auto 500 /uL (0-900); Monocytes Percent Auto 10.3 % (3-14); Neutrophils Absolute Auto 2400 /uL (1500-7000); Neutrophils Percent Auto 53.6 % (50-75); Platelet Count 94 X10^3/uL (150-400); Red Blood Cell Count 4.47 X10^6/uL (4.0-5.2); Red Cell Distribution Width 14.8 % (11.6-14.8); White Blood Cell Count 4.5 X10^3/uL (4.5-11.0)
[2019-11-27 12:37] LABS: BUN Creatinine Ratio 19.5 (6-22); Blood Urea Nitrogen 26 mg/dL (7-17); Calcium 9.9 mg/dL (8.4-10.2); Carbon Dioxide 27 mmol/L (22-32); Chloride 103 mmol/L (98-107); Estimated Glomerular Filt Rate 39.6 mL/min (>60); Glucose 80 mg/dL (80-110); HEMOLYSIS < 15 (0-50); Potassium 4.4 mmol/L (3.4-5.1); Sodium 137 mmol/L (137-145)
== END ==
PROVIDERS: PCP Internal Medicine; Visit Provider Nurse Practitioner Family
DX: Z51.81 Encounter for therapeutic drug level monitoring (principal)
CPT/HCPCS: 36415; 80048; 85025

== ENCOUNTER → 2019-12-11 20:09 | Outpatient (ROUT) | payer MEDICARE, MEDICAID, SELFPAY ==
[2019-12-11 20:12] LABS: Appearance Urine UA CLEAR; Bilirubin Urine UA NEGATIVE (NEGATIVE); Color Urine UA YELLOW; Glucose Urine UA NEGATIVE (Negative); Ketones Urine UA NEGATIVE (NEGATIVE); Leukocyte Esterase Urine UA NEGATIVE (NEGATIVE); Nitrite Urine UA NEGATIVE (Negative); Occult Blood Urine UA TRACE-INTACT (Negative); Protein Urine UA TRACE (Negative); Specific Gravity Urine UA 1.025 (1.000-1.035); Urobilinogen Urine UA 0.2 E.U./dL (0.2)
[2019-12-11 20:19] LABS: Amorphous Sediment Urine 1+; RBC Urine 0-1/HPF (0-5/HPF); Squamous Epithelial Cell Urine 1-5 /HPF (0-5/HPF); WBC Urine 1-5/HPF (0-5/HPF)
[2019-12-11 20:20] LABS: Bacteria Urine Occasional (0-1); Culture Indicated Urine Cult Not Indicated
== END ==
PROVIDERS: PCP Internal Medicine; Visit Provider Nurse Practitioner Family
DX: N39.0 Urinary tract infection, site not specified (principal)
CPT/HCPCS: 81001

== ENCOUNTER → 2020-03-02 08:00 | Outpatient (ROUT) | payer MEDICARE, MEDICAID, SELFPAY ==
[2020-03-02 09:06] LABS: Add Manual Diff / Slide Review NO; Basophils Absolute Auto 0 /uL (0-100); Basophils Percent Auto 0.1 % (0-2); Eosinophils Absolute Auto 0 /uL (0-450); Hematocrit 37.3 % (36-46); Hemoglobin 12.5 g/dL (12.0-16.0); Lymphocytes Absolute Auto 1400 /uL (1100-4500); Lymphocytes Percent Auto 32.2 % (25-40); Mean Corpuscular HGB Conc 33.6 % (30-36); Mean Corpuscular Hemoglobin 29.1 PG (26-34); Mean Corpuscular Volume 86.5 fL (80-100); Monocytes Absolute Auto 400 /uL (0-900); Monocytes Percent Auto 10.6 % (3-14); Neutrophils Absolute Auto 2400 /uL (1500-7000); Neutrophils Percent Auto 57.1 % (50-75); Platelet Count 100 X10^3/uL (150-400); Red Blood Cell Count 4.31 X10^6/uL (4.0-5.2); White Blood Cell Count 4.2 X10^3/uL (4.5-11.0)
[2020-03-02 09:29] LABS: BUN Creatinine Ratio 19.5 (6-22); Blood Urea Nitrogen 26 mg/dL (7-17); Calcium 9.5 mg/dL (8.4-10.2); Carbon Dioxide 28 mmol/L (22-32); Chloride 103 mmol/L (98-107); Estimated Glomerular Filt Rate 39.6 mL/min (>60); Glucose 122 mg/dL (80-110); HEMOLYSIS < 15 (0-50); Potassium 3.8 mmol/L (3.4-5.1); Sodium 136 mmol/L (137-145)
== END ==
PROVIDERS: PCP Internal Medicine; Visit Provider Internal Medicine
DX: N18.9 Chronic kidney disease, unspecified (principal); Z79.899 Other long term (current) drug therapy
CPT/HCPCS: 36415; 80048; 85025

== ENCOUNTER 2020-04-24 01:08 | Emergency (ER) | payer MEDICARE, MEDICAID, SELFPAY ==
[2020-04-24 01:10] VITALS: BP 127/80; PULSE 67; RESP 16; TEMP 36.4; O2SAT 98; BMI 33.7
[2020-04-24 01:15] VITALS: BP 127/80; PULSE 64; O2SAT 97
--- NOTE | 2020-04-24 01:18 | DI.RAD.S_ITS ---
PROCEDURE: XR HUMERUS RT 2V INDICATIONS: Fall with pain to upper arm TECHNIQUE: To views of the humerus were acquired. COMPARISON: None. FINDINGS: Bones: Comminuted and displaced fractures of the right humeral head and neck. No suspicious bony lesions. Soft tissues: No suspicious soft tissue calcifications. IMPRESSION: Comminuted and displaced fracture of the right humeral head and neck. Dictated by: Rahul Gonzales M.D. on 04/24/2020 at 7:15 Approved by: Rahul Gonzales M.D. on 04/24/2020 at 7:16
--- NOTE | 2020-04-24 01:19 | DI.CT.S_ITS ---
PROCEDURE: CT HEAD/BRAIN WO CON INDICATIONS: Trauma, fall hit head on floor TECHNIQUE: Noncontrast 4.5 mm thick angled axial sections acquired from the foramen magnum to the vertex, with coronal and sagittal reformats. For radiation dose reduction, the following was used: automated exposure control, adjustment of mA and/or kV according to patient size. COMPARISON: None. FINDINGS: Image quality: Excellent. CSF spaces: Basal cisterns are patent. No extra-axial fluid collections. Ventricles are normal in size and shape. Brain: Global cerebral volume loss and chronic microvascular ischemic changes, both advanced. No midline shift. No intracranial masses or hemorrhage. Bowen-white matter interface is normal. Moderate to severe intracranial atherosclerosis. Questionable midbrain atrophy. Skull and face: Calvarium and visualized facial bones are intact, without suspicious lesions. Sinuses: Visualized sinuses and mastoids are clear. IMPRESSION: No acute intracranial finding. Moderate to severe intracranial atherosclerosis. CT angiography of the head neck could be considered on an outpatient basis to evaluate for potentially hemodynamically significant flow limitation. Advanced global cerebral volume loss and chronic microvascular ischemic changes. Questionable disproportionate atrophic change of the midbrain. Findings are non-specific but raise concern for Parkinson's disease, progressive supranuclear palsy, multi-system atrophy, or corticobasal degeneration in the appropriate clinical setting. Neurologic referral and evaluation could be considered if there are relevant clinical symptoms. Further evaluation with MRI and/or PET imaging of the brain could be helpful. Dictated by: Rahul Gonzales M.D. on 04/24/2020 at 7:06 Approved by: Rauhl Gonzales M.D. on 04/24/2020 at 7:10
--- NOTE | 2020-04-24 01:19 | DI.CT.S_ITS ---
PROCEDURE: CT CERVICAL SPINE WO CON INDICATIONS: fall and hit head on floor TECHNIQUE: Noncontrast 3 mm thick sections acquired from the skull base to the T4 level. Sagittal and coronal reformats were then constructed. For radiation dose reduction, the following was used: automated exposure control, adjustment of mA and/or kV according to patient size. COMPARISON: [facility], MR, MR THORACIC SPINE WO CON, 11/15/2018, 11:26. FINDINGS: Image quality: Excellent. Bones: Acute versus subacute superior to anyone endplate fracture . Chronic fracture deformities at T2 and T3. None of these fractures have greater than 20-25% height loss. There is no acute fracture of the cervical spine. Cervical spinal alignment is normal other than degenerative straightening. Visualized osseous structures of the skull base and upper thorax are intact. Soft tissues: Left thyroid nodule measuring 3.4 cm is unchanged from November 2018 thoracic spine MRI. Prevertebral soft tissues are normal in thickness. No paravertebral hematomas. No apical pneumothoraces. IMPRESSION: Acute versus subacute T2 superior endplate compression deformity. Correlate for any point tenderness. MRI could be helpful for more so sensitive evaluation if clinically warranted. Remote mild compression deformities at T2 and T3. No acute cervical spine fracture. No significant change from preliminary report. Dictated by: Rahul Gonzales M.D. on 04/24/2020 at 7:10 Approved by: Rahul Gonzales M.D. on 04/24/2020 at 7:14
--- NOTE | 2020-04-24 01:19 | DI.CT.S_ITS ---
PROCEDURE: CT FACIAL BONES WO CON INDICATIONS: fall and hit head on floor TECHNIQUE: Noncontrast 2.5 mm thick axial images acquired from the mandible through the frontal sinuses, with coronal and sagittal reformatting. For radiation dose reduction, the following was used: automated exposure control, adjustment of mA and/or kV according to patient size. COMPARISON: None. FINDINGS: Image quality: Excellent. Bones and teeth: Orbital armas are intact. Sinus armas show no fracture or deformity. Nasal bones and septum are intact. Visualized portions of the mandible demonstrate no fractures or subluxation. Zygomatic arches are intact. Pterygoid plates are intact. Visualized portions of the skull base and auditory canals are intact. Sinuses: Paranasal sinuses are aerated, without fluid levels, mucosal thickening, or mucoceles. Mastoid air cells are aerated. Soft tissues: No edema, masses, or fluid collections. No enlarged lymph nodes. No soft tissue lacerations or debris. Vascular: Visualized vascular structures appear normal in the absence of contrast. Bony vascular foramina and canals are intact. IMPRESSION: No acute traumatic finding. No significant change from preliminary report. Dictated by: Rahul Gonzales M.D. on 04/24/2020 at 7:14 Approved by: Rahul Gonzales M.D. on 04/24/2020 at 7:15
--- NOTE | 2020-04-24 01:50 | PC.NURSE ---
Pt stated that she urgently needed to go to the bathroom and refused to use a bedpan. Pt was assisted to the BSC. Pt reported that it usually takes her a very long time to fully urinate. I sat with pt for 15 min and pt was still unable to urinate. Pt assisted back to bed
--- NOTE | 2020-04-24 02:32 | ED.FALL ---
HPI - Fall General Chief Complaint: Fall Stated Complaint: GLF Time Seen by Provider: 04/24/20 01:13 Source: patient and EMS Mode of arrival: EMS History of Present Illness HPI Narrative: Patient brought in from home for a ground level fall. She is awake alert oriented x4. Is not on any blood thinners. Complains of epistaxis and right arm pain. Denies denies any headache chest pain abdominal pain dizziness or dyspnea prior to the fall. She states she was in her day room caring a lot of things in her arms and something dropped, she bent over to pick it up, and fell forward and hit the ground. Denies any alcohol use tonight. No confusion or altered mental status. Denies any head pain or neck pain. Denies any pain below the waist. No pain or injury to the chest back or abdomen. Related Data Home Medications Medication Instructions Recorded Confirmed acetaminophen 650 mg 650 mg PO Q4H PRN tab 02/18/18 11/08/18 tablet,extended release atenolol 25 mg tablet 25 mg PO DAILY 02/18/18 11/08/18 atorvastatin 20 mg tablet 20 mg PO DAILY 02/18/18 11/08/18 lisinopril 20 mg tablet 20 mg PO DAILY 02/18/18 11/08/18 modafinil 200 mg tablet 200 mg PO DAILY 02/18/18 11/08/18 venlafaxine 75 mg tablet 75 mg PO DAILY tab 02/18/18 11/08/18 aspirin 81 mg PO DAILY 03/08/18 11/08/18 bisacodyl 5 - 10 mg PO PRN PRN 03/08/18 11/08/18 bisacodyl 10 mg HI PRN PRN 03/08/18 11/08/18 lidocaine 1 patch TOPICAL Q12H 03/08/18 11/08/18 Previous Rx's Medication Instructions Recorded hydrocodone-acetaminophen 1 tab PO Q8H PRN #20 tab 04/24/20 ondansetron 4 mg PO Q8H PRN #10 tab 04/24/20 Allergies Allergy/AdvReac Type Severity Reaction Status Date / Time No Known Drug Allergies Allergy Verified 08/11/19 15:57 Review of Systems Review of Systems Narrative: GENERAL: Denies chills, fatigue, malaise, fever, sweats. HEENT: Denies sinus pain, ear pain, sore throat, difficulty swallowing, dizziness. RESPIRATORY: Denies dyspnea, cough, wheezing, hemoptysis, sputum. CARDIOVASCULAR: Denies chest pain, palpitations, orthopnea, edema, GASTROINTESTINAL: Denies nausea, vomiting, abdominal pain, diarrhea, constipation, melena. : Denies dysuria, frequency, incontinence, hematuria, urinary retention. MUSCULOSKELETAL: denies weakness, complains joint pain, or bony pain SKIN: Denies rash, skin lesions NEUROLOGIC: Denies weakness, headache, numbness, change in speech, confusion, seizures, incoordination. PSYCHIATRIC: No concerning psychosocial issues. ROS Unobtainable: All systems reviewed & are unremarkable except as noted in HPI and below Patient History Medical History Hepatitis C (Resolved) Hypertension (Chronic) Narcolepsy and cataplexy (Chronic) Obesity (BMI 30-39.9) (Chronic) Obstructive sleep apnea of adult (Chronic) Stroke (Chronic) Surgical History History of section (Inactive) Family History Mother Cancer Social History marital status: unmarried,single number of children: 3 household members: none lives independently: No caregiver/support person: Yes housing: assisted living facility pets and animals: No Smoking Status: Current every day smoker second hand exposure: Yes alcohol intake: never substance use type: marijuana caffeine: Yes (15-20 20-oz cups daily) Smoking Status: Current every day smoker Substance Use Type: does not use Exam Narrative Exam Narrative: GENERAL: patient appears stated age. Well-nourished, well-developed patient, in no distress, not toxic HEAD: Atraumatic. Normocephalic. Nontender scalp and skull, no crepitus or step-off. EYES: Pupils equal round and reactive. Extraocular motions intact. No scleral icterus. No injection or drainage. ENT: Nose without bleeding, purulent drainage. Throat without erythema, tonsillar hypertrophy or exudate. Airway patent. Nontender forehead cheeks jaw. No trismus or malocclusion. Nontender mandible. Abrasion at the bridge of the nose, bleeding has stopped. Right naris no blood, left naris old dried blood. No active bleeding. No blood in posterior pharynx NECK: Trachea midline. Non tender, no midline tenderness or step-off, C-collar placed on arrival and cleared clinically as well as CT C-spine no acute process CARDIOVASCULAR: Regular rate and rhythm without murmurs, gallops, or rubs. RESPIRATORY: Clear to auscultation. Breath sounds equal bilaterally. No wheezes, rales, or rhonchi. GASTROINTESTINAL: Abdomen soft, non-tender, nondistended. EXTREMITIES: Right upper extremity had mild diffuse tenderness of the proximal humerus. No gross deformity/drop-off. Limited range of motion due to pain. 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 Light touch intact deltoid in fingertips. Nontender left upper extremity shoulder elbows wrists/pelvis hips knees and ankles BACK: Nontender without deformity or crepitance. No flank tenderness. Leaned patient forward. C-spine T-spine and L-spine exposed. There is no no no midline tenderness or step-off. No skin injury. NEURO: AOx4. Clear speech no facial droop light touch intact to bilateral face hands and legs. 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 Strong bilateral hip flexion extension SKIN: No rash or erythema of visible areas PSYCH: Not anxious, is cooperative Initial Vital Signs Initial Vital Signs: Vital Signs Temperature 97.6 F 04/24/20 01:10 Pulse Rate 67 04/24/20 01:10 Respiratory Rate 16 04/24/20 01:10 Blood Pressure 127/80 04/24/20 01:10 Pulse Oximetry 98 04/24/20 01:10 Course Orders Ordered: Discontinued Medications Acetaminophen (Tylenol) 650 mg PO NOW ONE Stop: 04/24/20 03:40 Last Admin: 04/24/20 03:51 Dose: 650 mg Documented by: AUCLAUDIO Reevaluation(s) Reevaluation #1: Sling applied patient tolerated well. Patient only request for apple juice. Does not want anything for pain. Time: 03:01 Consultations Consultation #1: Spoke with orthopedics Dr. Gates regarding right humerus fracture/imaging. Place in sling may be discharged home and follow-up in the office Time: 02:43 Vital Signs Vital signs: Vital Signs - 8 hr 04/24/20 01:10 Temperature 97.6 F Pulse Rate 67 Respiratory Rate 16 Blood Pressure 127/80 Pulse Oximetry 98 MDM - Fall Imaging Data X-ray right upper extremity: My Impression: Comminuted displaced fracture of the proximal right humerus CT scan - head: Radiologist's Impression: No acute findings CT - cervical spine: Radiologist's Impression: Acute to subacute appearing minor superior endplate T1 fracture, no more than 25% compression fracture. Indeterminate thyroid nodule need non emergent ultrasound follow up. Left upper pulmonary nodule follow-up CT recommended CT facial bones: Radiologist's Impression: Unremarkable maxillofacial CT [facility] Narrative Medical decision making narrative: Appropriate for discharge home. Pain controlled. No epistaxis. No laboratory studies or EKG indicated this time. This was a mechanical fall. CT C-spine reviewed and reveals less than 25% acute to subacute appearance superior endplate T1 compression fracture/deformity. Patient denies denies any pain or injury to the area. Dr. Gates orthopedic office as providers to follow up for vertebrae fracture. Patient is neurologically intact. No numbness or tingling to the hands or feet. No weakness of the hands or feet or legs or arms Discharge Plan Departure Patient Disposition: Home Clinical Impression: Acute anterior epistaxis Closed right humeral fracture Qualifiers: Encounter type: initial encounter Humerus Location: shaft Fracture morphology: comminuted Fracture alignment: displaced Qualified Code(s): S42.351A - Displaced comminuted fracture of shaft of humerus, right arm, initial encounter for closed fracture Discharge Date/Time: 04/24/20 07:23 Activity Restrictions/Additional Instructions: Call Dr. Gates office for follow-up regarding injury to her arm as well as 2 year thoracic vertebrae. Call on Sunday for office recheck. Use sling for arm comfort. No operating machinery or driving while taking pain medication/narcotics. Return if worse or if any questions or concerns. Prescriptions: New hydrocodone-acetaminophen 5-325 mg tablet 1 tab PO Q8H PRN (Reason: pain) Qty: 20 RF: 0 ondansetron 4 mg tablet,disintegrating 4 mg PO Q8H PRN (Reason: nausea and vomiting) Qty: 10 RF: 0 No Action bisacodyl 10 mg Suppository 10 mg HI PRN PRN (Reason: no bm x 5 days) RF: 0 aspirin 81 mg Tablet,Chewable 81 mg PO DAILY RF: 0 bisacodyl 5 mg Tablet 5 - 10 mg PO PRN PRN (Reason: no bm in 3-4 days) RF: 0 lidocaine 4 % Gel 1 patch Topical Q12H RF: 0 atorvastatin 20 mg tablet 20 mg PO DAILY RF: 0 venlafaxine 75 mg tablet 75 mg PO DAILY RF: 0 lisinopril 20 mg tablet 20 mg PO DAILY RF: 0 atenolol 25 mg tablet 25 mg PO DAILY RF: 0 acetaminophen 650 mg tablet extended release 650 mg PO Q4H PRN (Reason: pain) RF: 0 modafinil 200 mg tablet 200 mg PO DAILY RF: 0 Referrals: Amina Merida MD [Primary Care Provider] - Jerrell Ortega MD [Physician] - Edwin Gates MD [Physician] -
--- NOTE | 2020-04-24 02:56 | PC.NURSE ---
C-spine cleared by , C-collar removed. Sling applied to R arm
--- NOTE | 2020-04-24 03:11 | PC.NURSE ---
Dee Dee RN at [facility] and was given pt report. Facility will send transport at 0700
[2020-04-24] MEDS: ACETAMINOPHEN 325 MG TABLET 650 MG PO (03:51)
[2020-04-24 03:56] VITALS: O2SAT 92
[2020-04-24 03:57] VITALS: BP 138/90; PULSE 62; O2SAT 97
[2020-04-24 04:01] VITALS: BP 139/90; PULSE 69; RESP 20; O2SAT 99
[2020-04-24 06:56] VITALS: BP 177/84; PULSE 63; RESP 22; O2SAT 95
== END 2020-04-24 07:23 | disposition home or self-care (01) ==
PROVIDERS: Emergency Provider Emergency Medicine; PCP Internal Medicine
DX: S42.351A Displaced comminuted fracture of shaft of humerus, right arm, initial encounter for closed fracture (principal); R04.0 Epistaxis; W19.XXXA Unspecified fall, initial encounter; S09.90XA Unspecified injury of head, initial encounter
CPT/HCPCS: 70450; 70486; 72125; 73060; 99283; 99284

== ENCOUNTER → 2020-04-29 10:16 | Outpatient (CLI) | payer MEDICARE, MEDICAID, SELFPAY ==
--- NOTE | 2020-04-29 | DI.CT.S_ITS ---
PROCEDURE: CT UE RT WO CON INDICATIONS: Displaced oblique fracture of shaft of humerus, right arm, i TECHNIQUE: Noncontrast 1-1.5 mm thick sections acquired from the acromioclavicular joint to the inferior scapula, with coronal and sagittal reformatting. COMPARISON: [facility], CR, XR HUMERUS RT 2V, 04/24/2020, 1:40. FINDINGS: Image quality: Excellent. Bones: Severely comminuted fracture of the proximal humerus involving the surgical neck, greater and lesser tuberosities as well as the anatomic head. There is subluxation of the glenohumeral joint. Mildly impacted appearance. The visualized left lung appears within normal limits. IMPRESSION: Severely comminuted proximal humerus fracture as above. Subluxation of the glenohumeral joint. Dictated by: Ric Ty M.D. on 04/29/2020 at 14:36 Approved by: Ric Ty M.D. on 04/29/2020 at 14:48
== END ==
PROVIDERS: PCP Internal Medicine; Referring Provider Orthopaedic Surgery; Visit Provider Orthopaedic Surgery
DX: S42.241A 4-part fracture of surgical neck of right humerus, initial encounter for closed fracture (principal); S43.001A Unspecified subluxation of right shoulder joint, initial encounter; X58.XXXA Exposure to other specified factors, initial encounter
CPT/HCPCS: 73200

== ENCOUNTER → 2020-05-03 16:50 | Outpatient (ROUT) | payer MEDICARE, MEDICAID, SELFPAY ==
[2020-05-05 08:34] LABS: COVID19 Sendout Not Detected (Not Detect)
== END ==
PROVIDERS: PCP Internal Medicine; Visit Provider Internal Medicine
DX: Z11.59 Encounter for screening for other viral diseases (principal)
CPT/HCPCS: 87635

== ENCOUNTER 2020-05-06 11:08 | Inpatient (IN) | payer MEDICARE, MEDICAID, SELFPAY ==
[2020-05-04 08:06] VITALS: BMI 33.7
[2020-05-06] VITALS (11 sets, daily range): BP systolic 120–142; BP diastolic 62–98; PULSE 68–91; RESP 9–17; TEMP 36.2–37; O2SAT 94–98; BMI 33.7
--- NOTE | 2020-05-06 | DI.RAD.S_ITS ---
PROCEDURE: XR SHOULDER RT MIN 2V INDICATIONS: ORIF SHOULDER TECHNIQUE: 2 views of the shoulder were acquired. COMPARISON: [facility], , XR HUMERUS RT 2V, 04/24/2020, 1:40. FINDINGS: Bones: Intraoperative images demonstrating ORIF of comminuted proximal right humerus fracture noted. Orthopedic plate screws have been placed for ORIF. Anatomic alignment of the fracture fragments noted. Soft tissues: No suspicious soft tissue calcifications. IMPRESSION: Expected postsurgical change for ORIF of proximal right humerus fracture. Dictated by: Leslie Beverly MD, PhD on 05/06/2020 at 16:20 Approved by: Leslie Beverly MD, PhD on 05/06/2020 at 16:21
[2020-05-06] MEDS: LACTATED RINGERS 1,000 ML 42 ML IV ×2 (12:26→15:04)
[2020-05-06 12:46] LABS: Add Manual Diff / Slide Review NO; Basophils Absolute Auto 0 /uL (0-100); Basophils Percent Auto 0.1 % (0-2); Eosinophils Absolute Auto 0 /uL (0-450); Hematocrit 32.7 % (36-46); Lymphocytes Absolute Auto 1000 /uL (1100-4500); Lymphocytes Percent Auto 19.5 % (25-40); Mean Corpuscular HGB Conc 33.6 % (30-36); Mean Corpuscular Hemoglobin 29.2 PG (26-34); Monocytes Absolute Auto 400 /uL (0-900); Monocytes Percent Auto 7.4 % (3-14); Neutrophils Absolute Auto 3800 /uL (1500-7000); Platelet Count 162 X10^3/uL (150-400); Red Blood Cell Count 3.76 X10^6/uL (4.0-5.2); Red Cell Distribution Width 14.6 % (11.6-14.8); White Blood Cell Count 5.3 X10^3/uL (4.5-11.0)
[2020-05-06 12:58] LABS: BUN Creatinine Ratio 28.6 (6-22); Blood Urea Nitrogen 32 mg/dL (7-17); Calcium 9.4 mg/dL (8.4-10.2); Carbon Dioxide 30 mmol/L (22-32); Chloride 101 mmol/L (98-107); Estimated Glomerular Filt Rate 48.1 mL/min (>60); Glucose 102 mg/dL (80-110); HEMOLYSIS 32 (0-50); Potassium 4.5 mmol/L (3.4-5.1); Sodium 135 mmol/L (137-145)
--- NOTE | 2020-05-06 13:01 | PM.PREOP ---
Pre-operative Note COVID-19 COVID-19 status: Negative Result date/Date tested (Pos, Neg/Pending): 05/04/20 Interval Note History & Physical reviewed/Exam performed by Physician: Yes Changes to H&P: No
[2020-05-06] MEDS: CEFAZOLIN 2 GM/100 ML FROZ.PIGGY IV ×2 (13:11→20:58)
--- NOTE | 2020-05-06 13:49 | SUR.OPER ---
Beach chair with skytron shoulder positioner. Lower body on padded OR bed. Head in foam padded head cradle, secured with straps. Non-operative arm secured <90 degrees abduction. Pillow under knees. Safety belt at thigh. Cloth tape over blanket over lower legs.
[2020-05-06] MEDS: LIDOCAINE 1% W/EPI 20 ML INJ (13:57)
[2020-05-06] MEDS: ACETAMINOPHEN IV 1,000 MG/100 ML VIAL 400 MG IV (14:20)
[2020-05-06] MEDS: BUPIVACAINE 0.25% W/ EPI 30 ML VIAL INJ (15:50)
--- NOTE | 2020-05-06 16:02 | P.OP_ITS ---
Operative Date/Time/Diagnoses Date of procedure: 05/06/20 Time of procedure: 13:30 Pre-op diagnosis: Proximal humerus fracture Post-op diagnosis: same Procedure & Clinicians Procedure: Open reduction internal fixation of a right proximal humerus fracture Same procedure as scheduled: Yes Indications: Displaced comminuted 3 part proximal humerus fracture Surgeon: Edwin Gates Taxicab Coordinator: Angela Cee Anesthesia Type: General Operative Notes Findings: Displaced 3 part proximal humerus fracture Closure Type: primary Specimen(s): none sent Prosthetic devices, grafts, tissues, transplants, or devices: Fibular strut graft Applied: graft(s) (Fibular strut graft) and implant(s) (Arthrex proximal humerus plate) Estimated Blood Loss (mL): 100 Blood products transfused: none Procedure in detail: On date of service, patient was met in the holding area where her operative site was signed and witnessed by the OR staff. Surgeries once again discussed with patient any remaining questions or concerns she had were answered fully. Patient received her antibiotics preoperatively as well as a nerve block. Patient was taken back to the operating theater and placed on the operating table in a supine position. Great care was taken to ensure that all bony prominences were appropriately padded. Patient was placed into a beach chair position at about 30?. Head and neck were also appropriately positioned and secured. Time-out had previously been performed verifying patient's name, procedure, and operative site. Right arm was prepped and draped in the normal sterile fashion. A deltopectoral approach was performed. Ten blade was used to incise through skin and fascial tissue. Electrocautery used to achieve hemostasis. Two retractors were placed and continued sharp dissection was performed. Pickups and tenotomies were used to identify the cephalic vein which was then freed and retracted with the pectoralis. Deltoid was retracted medially giving us good visualization of the proximal humerus. Biceps tendon was identified and was dissected through the bicipital groove allowing us to identify the lesser tuberosity which was fractured but not really displaced. The greater tuberosity was fractured in multiple pieces with 1 of the pieces being rather large. Sutures were placed around the pieces of the greater tuberosity at the bone-tendon interface allowing us to be able to mobilize the tuberosity fragments. The shaft was impacted into the head this caused the head to be tilted inferior. But it was still aligned with the glenoid. The shaft was displaced towards the glenoid being medial to the humeral head. The shaft was disimpacted from the head. Strut graft was placed into the proximal and of the shaft. This was used to help elevate the head back into an anatomic position and also helped position the shaft underneath the head where it belonged. This was provisionally fixated with K-wires holding the shaft the strut graft and the head all secured. C-arm was brought in to verify the reduction of the head onto the shaft. Once we were satisfied with this plate was placed and C-arm was used to verify plate positioning as well. The plate was initially secured distally. Sutures were passed through the greater tuberosity around into the lesser tuberosity in order to secure the lesser tuberosity as well as reduce the greater tuberosity back to where it belonged. Once the tuberosities were reduced proximal screws were placed securing the plate to the tuberosity as well as the humeral head. 2. FiberWire were then placed through the tuberosities again through the suture holes into the plate for additional fixation making sure the tuberosities were secured in position as well as to the plate. Final x-rays were obtained showing a well reduced humeral head also showing that none of the screws were close to being intra-articular. The wound was then copiously irrigated. It was closed in a layered fashion. The wound was cleaned, dried, and dressed. Patient was extubated and taken to the PACU in stable condition. Complications: none Post-operative Condition: stable Disposition: PACU Plan for aftercare: No restrictions to range of motion. No weight-bearing through the right upper extremity. No lifting more than 1-2 lb.
[2020-05-06] MEDS: HYDROCODONE/ACET 5/325 TABLET 2 TAB PO (16:55)
--- NOTE | 2020-05-06 17:01 | SUR.PHASEI ---
Report attempted, RN not available, report to [facility], medicated with norco after applesauce tolerated. Pt transported up to room on / on . R arm remained in sling, aquacel dressing c/d/i. iced and pillow to elevate arm, bruising present r arm to r chest.
[2020-05-06] MEDS: LACTATED RINGERS 1,000 ML 125 ML IV (18:17)
[2020-05-06] MEDS: DOCUSATE 100 MG CAPSULE PO (20:58)
[2020-05-06] MEDS: METHYLPHENIDATE 5 MG TABLET 10 MG PO (21:00)
--- NOTE | 2020-05-06 21:55 | PC.NURSE ---
A&OX3. pt ambulated to the BSC twice, pt unable to urinate. pt reports she last voided 0900. bladder scan 470cc. VTO from to straight cath. In/out cath output 400cc.
[2020-05-07] MEDS: ACETAMINOPHEN 325 MG TABLET 975 MG PO ×3 (01:27→14:17)
[2020-05-07] MEDS: LACTATED RINGERS 1,000 ML 125 ML IV (03:24)
[2020-05-07] MEDS: METOCLOPRAMIDE 10 MG/2 ML INJ IV (04:36)
[2020-05-07] MEDS: CEFAZOLIN 2 GM/100 ML FROZ.PIGGY IV (04:36)
[2020-05-07 05:00] VITALS: BP 145/89; PULSE 81; RESP 16; TEMP 37; O2SAT 92
[2020-05-07 07:36] VITALS: BP 148/94; PULSE 73; RESP 16; TEMP 36.3; O2SAT 99
--- NOTE | 2020-05-07 08:50 | P.PN_ITS ---
Subjective Subjective Date Patient Seen: 05/07/20 Time Patient Seen: 08:50 Interval history: Patient is POD#1 s/p ORIF of proximal humerus with Dr. Gates. Doing well postop. Pain is well controlled. Tolerating a diet. Pending PT. No complaints. Exam Vital Signs (past 8 hours): - 05/07/20 05:00 Temperature 98.6 F Pulse Rate 81 Respiratory Rate 16 Blood Pressure 145/89 H Pulse Oximetry 92 Oxygen Delivery Method Room Air Oxygen Flow Rate 0 Narrative Exam Narrative: 70 year old female, responding appropriately to questions. Dressing in place is CDI. Patient wearing a sling. Fibre [place] strength is equal, sensation intact. 2+ radial pulse. Objective Labs Result Diagrams: 05/06/20 12:41 05/06/20 12:41 Labs: Laboratory Results - last 24 hr 05/06/20 05/06/20 12:41 12:41 WBC 5.3 RBC 3.76 L Hgb 11.0 L Hct 32.7 L MCV 87.0 MCH 29.2 MCHC 33.6 RDW 14.6 Plt Count 162 Neut % (Auto) 73.0 Lymph % (Auto) 19.5 L Gulf % (Auto) 7.4 Eos % (Auto) 0.0 L Baso % (Auto) 0.1 Neut # (Auto) 3800 Lymph # (Auto) 1000 L Gulf # (Auto) 400 Eos # (Auto) 0 Baso # (Auto) 0 Sodium 135 L Potassium 4.5 Chloride 101 Carbon Dioxide 30 BUN 32 H Creatinine 1.12 H Estimated GFR 48.1 L BUN/Creatinine Ratio 28.6 H Glucose 102 Calcium 9.4 Assessment & Plan Assessment & Plan narrative: Patient doing well postop. Will work with PT today. No restrictions to ROM, no lifting more than 1-2 lbs. Discharge to home after PT.
[2020-05-07] MEDS: ATORVASTATIN 20 MG TABLET PO (09:14)
[2020-05-07] MEDS: hydroCHLOROthiazide 12.5 MG CAPSULE PO (09:14)
[2020-05-07] MEDS: DOCUSATE 100 MG CAPSULE PO (09:14)
[2020-05-07] MEDS: atenoloL 25 MG TABLET PO (09:14)
[2020-05-07] MEDS: lisinopriL 20 MG TABLET 40 MG PO (09:14)
[2020-05-07] MEDS: VENLAFAXINE HCL 100 MG TABLET 300 MG PO (09:20)
[2020-05-07] MEDS: METHYLPHENIDATE 5 MG TABLET 10 MG PO (09:21)
--- NOTE | 2020-05-07 09:41 | PT.IIE ---
Current Diagnoses Other displaced fracture of upper end of right humerus, initial encounter for closed fracture (05/06/20) Unspecified fracture of shaft of humerus, right arm, initial encounter for closed fracture (05/06/20) Displaced comminuted fracture of shaft of humerus, right arm, initial encounter for closed fracture (05/06/20) Surgery Performed Operation Date: 05/06/20 12:45 Actual Procedures p ORIF Humerus Fracture vs. Reverse Total Shoulder(Right) - Edwin Gates MD Surgical History (Last Updated 05/04/20 @ 08:15 by Carine Almeida RN) History of section (Inactive 1979) History of surgery on upper extremity (Acute 1985) Medical History (Last Updated 05/04/20 @ 08:23 by Carine Almeida RN) Closed right humeral fracture (Acute) Depression (Acute) Hepatitis C (Resolved) Hypertension (Chronic) Narcolepsy and cataplexy (Chronic) Obesity (BMI 30-39.9) (Chronic) Obstructive sleep apnea of adult (Chronic) Stroke (Chronic) Physical Therapy Inpatient Evaluation/Re-Eval M1 PT/OT-IP Prior Functional Status Start: 05/07/20 12:39 Freq: NEEDED Status: Active Protocol: Document 05/07/20 09:41 AB (Rec: 05/07/20 12:53 AB [email or web address]) Medical Review Prior Functional Status Medical History Reviewed Yes Communication able to make needs known Mobility and Gait pt stated that she was independent with all mobilities and ambulation using FWW prior to RUE fracture but since fracture, pt was not able to use a FWW and ambulated without AD. stated that SPC does not work for her. Social History Household Members none Living Arrangements Assisted Living Number of Floors (Floors) One Floor Number of Stairs To Enter/Railing? Pt lives at [facility]; stated that somebody can assist her if needed Home Environment Standard Height Toilet,Walk in Shower Home Equipment Front Wheel Walker,Shower Seat without Backrest,Hand Held Shower,Grab Bars Near Toilet, Grab Bars In Shower Additional Social History Comment pt has access to a w/c M2 PT-IP Current Condition Start: 05/07/20 12:39 Freq: NEEDED Status: Active Protocol: Document 05/07/20 09:41 AB (Rec: 05/07/20 12:53 AB [email or web address]) Physical Therapy Current Condition Current Condition Evaluation Date 05/07/20 Treatment Diagnosis R humeral fx s/p ORIF; difficulty in walking Onset Date 05/06/20 Precautions Shoulder Precautions Sling Other Precautions per ortho doctor's order: No restictions with ROM Weight Bearing Status Weight Bearing Status Weight Bear as Tolerated Allowed Weight Bearing Amount (enter % NWB RUE; no lifting more than or #) (%) 1-2# M3 PT-IP Subjective Start: 05/07/20 12:39 Freq: NEEDED Status: Active Protocol: Document 05/07/20 09:41 AB (Rec: 05/07/20 12:53 [email or web address]) Subjective Physical Therapy Visit Type Type Initial Evaluation Visit Start Time 09:41 Visit Stop Time 10:11 Total Visit Minutes 30 Number of STATISTICAL ASSISTANT Visits 0 Physical Therapy Visit Comments Patient Comments pt is agreeable to do PT Therapy Pain Assessment Pain When Pain Assessed At Rest Pain Present Pain Present Pain Reported Location Right Shoulder Intensity 3 Scale Used Numeric (0 - 10) Pain Management Techniques Distraction,Modification of Treatment,Re-positioning, Timing of Activity with Medications M4 PT-IP Mobility and Gait Start: 05/07/20 12:39 Freq: NEEDED Status: Active Protocol: Document 05/07/20 09:41 AB (Rec: 05/07/20 12:53 [email or web address]) PT-Bed Mobility Assessment Supine to Sit Supine to Sit Standby Assistance,Bedrails Sit to Supine Sit to Supine Standby Assistance,Bedrails PT-Transfer Assessment Sit to and From Stand Sit to and from Stand Moderate Assistance,1 Person Assistance,Use of Upper Extremities Equipment Transfer Assistive Device None,Gait Belt Orthotic/Prosthetic Devices or Brace: Yes Transfers Transfer Destination Toilet Transfer Technique ambulated without AD Transfer Ability Level of Assist Moderate Assistance,1 Person Assistance,Use of Upper Extremities Comments Mobility Comments pt sitting on chair. educated on RUE precautions and weight bearing precaution. adjusted sling. completed ROM on RUE. pt completed sit to stand mod A and requested to use the toilet and ambulation without AD mod A and max cues. pt refused to use a cane and stated that it does not work for her. pt was able to maintain standing min A while assisting with brief management. pt ambulated towards the sink mod A and cues and was able to complete handwashing mod A. pt ambulated in room ~ 20 ft without AD but tends to hold on to wall/bed. (+) LOB requiring mod A. resents with antalgic shuffling gait. pt ambulated to the bed. completed supine<>sit SBA with use of ail. completed stand step transfer to chair mod A. positioned on chair. call light and table placed within reach. Gait Assessment Gait Gait Assistance Required: Moderate Assistance,1 Person Assist Distance (Feet) 20 Assistive Devices Assistive Device None,Gait Belt Gait Deviations General Gait Pattern Antalgic,Decreased Stride Length,Decreased Feet Clearance,Narrow Based Gait, Step-to Gait Factors Limiting Gait Function Factors Limiting Gait Function Decreased Activity Tolerance, Decreased Strength,Difficulty Following Directions,Limited Range of Motion,Pain,Poor Balance,Poor Safety Awareness PT-Balance Assessment Sitting Balance and Reactions Static Sitting Balance Ability Good Dynamic Sitting Balance Ability Good Standing Balance and Reactions Static Standing Balance Ability Poor Dynamic Standing Balance Ability Poor Device Used without AD M5 PT-IP Objective Assessments Start: 05/07/20 12:39 Freq: NEEDED Status: Active Protocol: Document 05/07/20 09:41 AB (Rec: 05/07/20 12:53 [facility] Orientation Orientation/Cognition Level of Alertness Alert Orientation Name Language Function Ability Hard of Hearing Safety Awareness Decreased Safety Awareness Memory Description Short Term Impaired Gross Range of Motion Lower Extremity ROM Assessment Within Functional Limits Strength Lower Extremity Strength Assessment Bilaterally Impaired Hip 3+/5 Knee 3+/5 Muscle Tone Muscle Tone WNL Yes M6 PT-IP Treatment Start: 05/07/20 12:39 Freq: NEEDED Status: Active Protocol: Document 05/07/20 09:41 AB (Rec: 05/07/20 12:53 AB [facility]) Physical Therapy Treatment Education Education Provided Precautions,Weight Bearing Status,Post-Op Packet,Safety Brace Education [place],Patient M7 PT-IP Assessment and Plan Start: 05/07/20 12:39 Freq: NEEDED Status: Active Protocol: Document 05/07/20 09:41 AB (Rec: 05/07/20 12:53 AB [email or web address]) PT Summary Assessment and Plan Potential Rehabilitation Potential Good Status of Condition at Evaluation Stable Summary Impairments Pain,ROM,Strength,Balance, Coordination,Sensation,Tone, Cognition,Bed Mobility, Transfers,Gait,Activity Tolerance Assessment Summary pt requiring mod A with mobility and refused to use SPC. informed pt regarding balance and safety and stated that she might try the cane again when she goes back to [facility]. d/c plan depending if [facility] will be able to provide necessary assistance to pt and will need HHPT. d/c plan: SNF vs 24/7 assist and HHPT. Goals Bed Mobility Goal Independent Transfer Goal Standby Assistance,Cane Gait Goal Standby Assistance,Cane Gait Distance 100 Days to Meet Goals 5 Frequency of Treatment Frequency Of Treatment Twice a Day Treatment Plan Physical Therapy Treatment Plan Bed Mobility Training,Transfer Training,Gait Training, Therapeutic Exercise,Balance Retraining,Post Op Education, Discharge Planning,Hot or Cold Pack,Neuromuscular Re-ed, Coordination Retraining,Manual Therapy Recommendations To Nursing Amount of Assist Needed 1 Person Assist Discharge Recommendations PT Discharge Recommendations Home with 24/7 Assist,Home Health,SNF Rehab Other Discharge Recommendations home with 24/7 and HHPT vs SNF Transportation Needs at Discharge Wheelchair/Cabulance
--- NOTE | 2020-05-07 09:41 | PT.IIE ---
Current Diagnoses Other displaced fracture of upper end of right humerus, initial encounter for closed fracture (05/06/20) Unspecified fracture of shaft of humerus, right arm, initial encounter for closed fracture (05/06/20) Displaced comminuted fracture of shaft of humerus, right arm, initial encounter for closed fracture (05/06/20) Surgery Performed Operation Date: 05/06/20 12:45 Actual Procedures p ORIF Humerus Fracture vs. Reverse Total Shoulder(Right) - Edwin Gates MD Surgical History (Last Updated 05/04/20 @ 08:15 by Carine Almeida RN) History of section (Inactive 1979) History of surgery on upper extremity (Acute 1985) Medical History (Last Updated 05/04/20 @ 08:23 by Carine Almeida RN) Closed right humeral fracture (Acute) Depression (Acute) Hepatitis C (Resolved) Hypertension (Chronic) Narcolepsy and cataplexy (Chronic) Obesity (BMI 30-39.9) (Chronic) Obstructive sleep apnea of adult (Chronic) Stroke (Chronic) Physical Therapy Inpatient Evaluation/Re-Eval M1 PT/OT-IP Prior Functional Status Start: 05/07/20 12:39 Freq: NEEDED Status: Active Protocol: Document 05/07/20 09:41 AB (Rec: 05/07/20 12:53 AB [email or web address]) Medical Review Prior Functional Status Medical History Reviewed Yes Communication able to make needs known Mobility and Gait pt stated that she was independent with all mobilities and ambulation using FWW prior to RUE fracture but since fracture, pt was not able to use a FWW and ambulated without AD. stated that SPC does not work for her. Social History Household Members none Living Arrangements Assisted Living Number of Floors (Floors) One Floor Number of Stairs To Enter/Railing? Pt lives at [facility]; stated that somebody can assist her if needed Home Environment Standard Height Toilet,Walk in Shower Home Equipment Front Wheel Walker,Shower Seat without Backrest,Hand Held Shower,Grab Bars Near Toilet, Grab Bars In Shower Additional Social History Comment pt has access to a w/c M2 PT-IP Current Condition Start: 05/07/20 12:39 Freq: NEEDED Status: Active Protocol: Document 05/07/20 09:41 AB (Rec: 05/07/20 12:53 AB [email or web address]) Physical Therapy Current Condition Current Condition Evaluation Date 05/07/20 Treatment Diagnosis R humeral fx s/p ORIF; difficulty in walking Onset Date 05/06/20 Precautions Shoulder Precautions Sling Other Precautions per ortho doctor's order: No restictions with ROM Weight Bearing Status Weight Bearing Status Weight Bear as Tolerated Allowed Weight Bearing Amount (enter % NWB RUE; no lifting more than or #) (%) 1-2# M3 PT-IP Subjective Start: 05/07/20 12:39 Freq: NEEDED Status: Active Protocol: Document 05/07/20 09:41 AB (Rec: 05/07/20 12:53 [email or web address]) Subjective Physical Therapy Visit Type Type Initial Evaluation Visit Start Time 09:41 Visit Stop Time 10:11 Total Visit Minutes 30 Number of CROZE CUTTER Visits 0 Physical Therapy Visit Comments Patient Comments pt is agreeable to do PT Therapy Pain Assessment Pain When Pain Assessed At Rest Pain Present Pain Present Pain Reported Location Right Shoulder Intensity 3 Scale Used Numeric (0 - 10) Pain Management Techniques Distraction,Modification of Treatment,Re-positioning, Timing of Activity with Medications M4 PT-IP Mobility and Gait Start: 05/07/20 12:39 Freq: NEEDED Status: Active Protocol: Document 05/07/20 09:41 AB (Rec: 05/07/20 12:53 [email or web address]) PT-Bed Mobility Assessment Supine to Sit Supine to Sit Standby Assistance,Bedrails Sit to Supine Sit to Supine Standby Assistance,Bedrails PT-Transfer Assessment Sit to and From Stand Sit to and from Stand Moderate Assistance,1 Person Assistance,Use of Upper Extremities Equipment Transfer Assistive Device None,Gait Belt Orthotic/Prosthetic Devices or Brace: Yes Transfers Transfer Destination Toilet Transfer Technique ambulated without AD Transfer Ability Level of Assist Moderate Assistance,1 Person Assistance,Use of Upper Extremities Comments Mobility Comments pt sitting on chair. educated on RUE precautions and weight bearing precaution. adjusted sling. completed ROM on RUE. pt completed sit to stand mod A and requested to use the toilet and ambulation without AD mod A and max cues. pt refused to use a cane and stated that it does not work for her. pt was able to maintain standing min A while assisting with brief management. pt ambulated towards the sink mod A and cues and was able to complete handwashing mod A. pt ambulated in room ~ 20 ft without AD but tends to hold on to wall/bed. (+) LOB requiring mod A. resents with antalgic shuffling gait. pt ambulated to the bed. completed supine<>sit SBA with use of ail. completed stand step transfer to chair mod A. positioned on chair. call light and table placed within reach. Gait Assessment Gait Gait Assistance Required: Moderate Assistance,1 Person Assist Distance (Feet) 20 Assistive Devices Assistive Device None,Gait Belt Gait Deviations General Gait Pattern Antalgic,Decreased Stride Length,Decreased Feet Clearance,Narrow Based Gait, Step-to Gait Factors Limiting Gait Function Factors Limiting Gait Function Decreased Activity Tolerance, Decreased Strength,Difficulty Following Directions,Limited Range of Motion,Pain,Poor Balance,Poor Safety Awareness PT-Balance Assessment Sitting Balance and Reactions Static Sitting Balance Ability Good Dynamic Sitting Balance Ability Good Standing Balance and Reactions Static Standing Balance Ability Poor Dynamic Standing Balance Ability Poor Device Used without AD M5 PT-IP Objective Assessments Start: 05/07/20 12:39 Freq: NEEDED Status: Active Protocol: Document 05/07/20 09:41 AB (Rec: 05/07/20 12:53 [facility] Orientation Orientation/Cognition Level of Alertness Alert Orientation Name Language Function Ability Hard of Hearing Safety Awareness Decreased Safety Awareness Memory Description Short Term Impaired Gross Range of Motion Lower Extremity ROM Assessment Within Functional Limits Strength Lower Extremity Strength Assessment Bilaterally Impaired Hip 3+/5 Knee 3+/5 Muscle Tone Muscle Tone WNL Yes M6 PT-IP Treatment Start: 05/07/20 12:39 Freq: NEEDED Status: Active Protocol: Document 05/07/20 09:41 AB (Rec: 05/07/20 12:53 [facility] Physical Therapy Treatment Education Education Provided Precautions,Weight Bearing Status,Post-Op Packet,Safety Brace Education [place],Patient M7 PT-IP Assessment and Plan Start: 05/07/20 12:39 Freq: NEEDED Status: Active Protocol: Document 05/07/20 09:41 AB (Rec: 05/07/20 12:53 AB [email or web address]) PT Summary Assessment and Plan Potential Rehabilitation Potential Good Status of Condition at Evaluation Stable Summary Impairments Pain,ROM,Strength,Balance, Coordination,Sensation,Tone, Cognition,Bed Mobility, Transfers,Gait,Activity Tolerance Assessment Summary pt requiring mod A with mobility and refused to use SPC. informed pt regarding balance and safety and stated that she might try the cane again when she goes back to [facility]. pt will have assistance at home and will need homehealth PT/OT. Goals Bed Mobility Goal Independent Transfer Goal Standby Assistance,Cane Gait Goal Standby Assistance,Cane Gait Distance 100 Days to Meet Goals 5 Frequency of Treatment Frequency Of Treatment Twice a Day Treatment Plan Physical Therapy Treatment Plan Bed Mobility Training,Transfer Training,Gait Training, Therapeutic Exercise,Balance Retraining,Post Op Education, Discharge Planning,Hot or Cold Pack,Neuromuscular Re-ed, Coordination Retraining,Manual Therapy Recommendations To Nursing Amount of Assist Needed 1 Person Assist Discharge Recommendations PT Discharge Recommendations Home with 26/02 Assist,Home Health Transportation Needs at Discharge Wheelchair/Cabulance
[2020-05-07 09:44] VITALS: PULSE 78; RESP 16; O2SAT 97
[2020-05-07 11:16] VITALS: BP 107/77; PULSE 67; RESP 16; TEMP 36.3; O2SAT 97
--- NOTE | 2020-05-07 14:55 | PC.NURSE ---
Ortho: Up today in the chair for several hours, no pain at start of shift. Had a block, decreased sensation but had brisk cap refill to the rt fingers, strong radial pulse, could move fingers, sling is on and fits correctly. Dressing to shoulder is dry and intact. This afternoon the block wore off and she decided to take something for pain, wanted only plain acetominophen. Med given and pt reports it is working fair for pain. Does have a narcotic she can take for pain med - however she declined it. SI dont like to take that stuff. Voiced no other concerns. She is waiting for someone from the facility to come and eval her.
[2020-05-07 15:26] VITALS: BP 125/72; PULSE 64; RESP 16; TEMP 36.5; O2SAT 96
--- NOTE | 2020-05-07 16:10 | CM.DPNOTE ---
DC Note Patient is a 70 yo female, resident of [facility]. POD#1 from shoulder surgery w/Dr Gates. PCP: Amina Merida Payer: [facility] SMITH/BIANCA reviewed chart, working on this DCP / January at [facility] and Brennan at [facility] P# [phone] throughout the day. Patient has been cleared by Ortho for return to [facility]; Brennan at [facility] coming to assess at bedside this afternoon 1615 and plans to arrange w/c van back to [place] shortly thereafter This [employer]TER [employer]ER leaving for the day; therapy team has cleared patient for return home to [facility] w/ continued outpt vs HH therapy as ordered, patient will have therapy team visiting x2 weekly at [place] according to Brennan. faxed signed med list and Rx to [facility] at F# [phone] per Brennan's request P: DC this evening, home to [facility] via facility ADELINE Zaman
== END 2020-05-07 17:09 | DRG 494 ==
PROVIDERS: Anesthesiology; Admitting Provider Orthopaedic Surgery; PCP Internal Medicine; Referring Provider Internal Medicine; Visit Provider Orthopaedic Surgery
PROC: 0PSC04Z Reposition Right Humeral Head with Internal Fixation Device, Open Approach (ICD-10-PCS; principal; 2020-05-06 12:45)
DX: S42.201A Unspecified fracture of upper end of right humerus, initial encounter for closed fracture (principal); I10 Essential (primary) hypertension; G47.33 Obstructive sleep apnea (adult) (pediatric); Z86.73 Personal history of transient ischemic attack (TIA), and cerebral infarction without residual deficits; G47.419 Narcolepsy without cataplexy; G40.909 Epilepsy, unspecified, not intractable, without status epilepticus; Z87.891 Personal history of nicotine dependence; W19.XXXA Unspecified fall, initial encounter; Y92.099 Unspecified place in other non-institutional residence as the place of occurrence of the external cause; Z11.59 Encounter for screening for other viral diseases
CPT/HCPCS: 36415; 73030; 76000; 80048; 85025; 87635; 97161; A9270; J0131; J0690; J1100; J2405; J2704; J2765; J3010

== ENCOUNTER → 2020-06-03 07:54 | Outpatient (ROUT) | payer MEDICARE, MEDICAID, SELFPAY ==
[2020-05-06 19:03] VITALS: BMI 33.7
[2020-06-03 08:40] LABS: Add Manual Diff / Slide Review NO; Basophils Absolute Auto 0 /uL (0-100); Basophils Percent Auto 0.1 % (0-2); Eosinophils Absolute Auto 0 /uL (0-450); Eosinophils Percent Auto 0.1 % (2-4); Hematocrit 31.1 % (36-46); Hemoglobin 10.4 g/dL (12.0-16.0); Lymphocytes Absolute Auto 1400 /uL (1100-4500); Lymphocytes Percent Auto 39.5 % (25-40); Mean Corpuscular HGB Conc 33.5 % (30-36); Mean Corpuscular Volume 86.8 fL (80-100); Monocytes Absolute Auto 300 /uL (0-900); Monocytes Percent Auto 9.4 % (3-14); Neutrophils Absolute Auto 1800 /uL (1500-7000); Neutrophils Percent Auto 50.9 % (50-75); Platelet Count 104 X10^3/uL (150-400); Red Blood Cell Count 3.58 X10^6/uL (4.0-5.2); Red Cell Distribution Width 15.3 % (11.6-14.8); White Blood Cell Count 3.6 X10^3/uL (4.5-11.0)
[2020-06-03 08:44] LABS: BUN Creatinine Ratio 18.4 (6-22); Blood Urea Nitrogen 21 mg/dL (7-17); Calcium 9.3 mg/dL (8.4-10.2); Carbon Dioxide 31 mmol/L (22-32); Chloride 103 mmol/L (98-107); Estimated Glomerular Filt Rate 47.1 mL/min (>60); Glucose 90 mg/dL (80-110); HEMOLYSIS < 15 (0-50); Potassium 3.6 mmol/L (3.4-5.1); Sodium 137 mmol/L (137-145)
== END ==
PROVIDERS: PCP Internal Medicine; Visit Provider Nurse Practitioner Family
DX: N18.9 Chronic kidney disease, unspecified (principal); Z79.899 Other long term (current) drug therapy
CPT/HCPCS: 36415; 80048; 85025

== ENCOUNTER → 2020-06-24 18:51 | Outpatient (ROUT) | payer MEDICARE, MEDICAID, SELFPAY ==
[2020-05-06 19:03] VITALS: BMI 33.7
[2020-06-24 19:18] LABS: Add Manual Diff / Slide Review NO; Basophils Absolute Auto 0 /uL (0-100); Basophils Percent Auto 0.2 % (0-2); Eosinophils Absolute Auto 0 /uL (0-450); Eosinophils Percent Auto 0.1 % (2-4); Hematocrit 35.5 % (36-46); Hemoglobin 11.6 g/dL (12.0-16.0); Lymphocytes Absolute Auto 1200 /uL (1100-4500); Lymphocytes Percent Auto 28.6 % (25-40); Mean Corpuscular HGB Conc 32.8 % (30-36); Mean Corpuscular Hemoglobin 28.4 PG (26-34); Mean Corpuscular Volume 86.6 fL (80-100); Monocytes Absolute Auto 500 /uL (0-900); Monocytes Percent Auto 11.9 % (3-14); Neutrophils Absolute Auto 2600 /uL (1500-7000); Neutrophils Percent Auto 59.2 % (50-75); Platelet Count 127 X10^3/uL (150-400); Red Blood Cell Count 4.09 X10^6/uL (4.0-5.2); Red Cell Distribution Width 14.8 % (11.6-14.8); White Blood Cell Count 4.3 X10^3/uL (4.5-11.0)
[2020-06-24 19:25] LABS: Alanine Aminotransferase 26 IU/L (<35); Albumin Globulin Ratio 1.4 (1.0-2.8); Alkaline Phosphatase 93 U/L (38-126); Aspartate Aminotransferase 26 IU/L (14-36); BUN Creatinine Ratio 21.1 (6-22); Bilirubin Total 0.3 mg/dL (0.2-1.3); Blood Urea Nitrogen 26 mg/dL (7-17); Calcium 9.8 mg/dL (8.4-10.2); Carbon Dioxide 30 mmol/L (22-32); Chloride 103 mmol/L (98-107); Estimated Glomerular Filt Rate 43.2 mL/min (>60); Globulin 2.9 g/dL (1.7-4.1); Glucose 86 mg/dL (80-110); HEMOLYSIS < 15 (0-50); Potassium 4.2 mmol/L (3.4-5.1); Sodium 140 mmol/L (137-145); Total Protein 6.9 g/dL (6.3-8.2)
[2020-06-24 19:55] LABS: Thyroid Stimulating Hormone 1.91 uIU/mL (0.47-4.68)
[2020-06-24 20:14] LABS: Vitamin B12 315 pg/mL (239-931)
== END ==
PROVIDERS: PCP Internal Medicine; Visit Provider Nurse Practitioner Family
DX: R41.0 Disorientation, unspecified (principal)
CPT/HCPCS: 80053; 82607; 84443; 85025

== ENCOUNTER → 2020-07-22 08:26 | Outpatient (ROUT) | payer MEDICARE, MEDICAID, SELFPAY ==
[2020-05-06 19:03] VITALS: BMI 33.7
[2020-07-22 08:51] LABS: Add Manual Diff / Slide Review NO; Basophils Absolute Auto 0 /uL (0-100); Basophils Percent Auto 0.1 % (0-2); Eosinophils Absolute Auto 0 /uL (0-450); Eosinophils Percent Auto 0.1 % (2-4); Hematocrit 35.7 % (36-46); Lymphocytes Absolute Auto 1300 /uL (1100-4500); Lymphocytes Percent Auto 35.1 % (25-40); Mean Corpuscular HGB Conc 33.5 % (30-36); Mean Corpuscular Hemoglobin 28.2 PG (26-34); Mean Corpuscular Volume 84.1 fL (80-100); Monocytes Absolute Auto 400 /uL (0-900); Monocytes Percent Auto 11.2 % (3-14); Neutrophils Absolute Auto 2000 /uL (1500-7000); Neutrophils Percent Auto 53.5 % (50-75); Platelet Count 110 X10^3/uL (150-400); Red Blood Cell Count 4.24 X10^6/uL (4.0-5.2); Red Cell Distribution Width 14.6 % (11.6-14.8); White Blood Cell Count 3.8 X10^3/uL (4.5-11.0)
[2020-07-22 09:00] LABS: BUN Creatinine Ratio 27.8 (6-22); Blood Urea Nitrogen 30 mg/dL (7-17); Calcium 9.4 mg/dL (8.4-10.2); Carbon Dioxide 31 mmol/L (22-32); Chloride 103 mmol/L (98-107); Estimated Glomerular Filt Rate 50.2 mL/min (>60); Glucose 96 mg/dL (80-110); HEMOLYSIS < 15 (0-50); Potassium 4.1 mmol/L (3.4-5.1); Sodium 135 mmol/L (137-145)
== END ==
PROVIDERS: PCP Internal Medicine; Visit Provider Nurse Practitioner Family
DX: N18.9 Chronic kidney disease, unspecified (principal); D64.9 Anemia, unspecified
CPT/HCPCS: 36415; 80048; 85025

== ENCOUNTER → 2020-07-29 15:24 | Outpatient (ROUT) | payer MEDICARE, MEDICAID, SELFPAY ==
[2020-05-06 19:03] VITALS: BMI 33.7
[2020-07-29 15:52] LABS: Add Manual Diff / Slide Review NO; BUN Creatinine Ratio 27.9 (6-22); Basophils Absolute Auto 0 /uL (0-100); Basophils Percent Auto 0.1 % (0-2); Blood Urea Nitrogen 36 mg/dL (7-17); Calcium 9.8 mg/dL (8.4-10.2); Carbon Dioxide 30 mmol/L (22-32); Chloride 101 mmol/L (98-107); Eosinophils Absolute Auto 0 /uL (0-450); Eosinophils Percent Auto 0.1 % (2-4); Estimated Glomerular Filt Rate 40.9 mL/min (>60); Glucose 119 mg/dL (80-110); HEMOLYSIS 29 (0-50); Hematocrit 39.3 % (36-46); Hemoglobin 13.3 g/dL (12.0-16.0); Lymphocytes Absolute Auto 1400 /uL (1100-4500); Mean Corpuscular HGB Conc 33.7 % (30-36); Mean Corpuscular Hemoglobin 28.3 PG (26-34); Mean Corpuscular Volume 83.9 fL (80-100); Monocytes Absolute Auto 400 /uL (0-900); Monocytes Percent Auto 7.9 % (3-14); Neutrophils Absolute Auto 3200 /uL (1500-7000); Neutrophils Percent Auto 63.9 % (50-75); Platelet Count 144 X10^3/uL (150-400); Potassium 4.5 mmol/L (3.4-5.1); Red Blood Cell Count 4.69 X10^6/uL (4.0-5.2); Red Cell Distribution Width 14.5 % (11.6-14.8); Sodium 137 mmol/L (137-145); White Blood Cell Count 5.1 X10^3/uL (4.5-11.0)
== END ==
PROVIDERS: Visit Provider Nurse Practitioner Gerontology
DX: D61.818 Other pancytopenia (principal); N18.9 Chronic kidney disease, unspecified
CPT/HCPCS: 80048; 85025

== ENCOUNTER 2020-08-08 01:53 | Emergency (ER) | payer MEDICARE, MEDICAID, SELFPAY ==
[2020-05-06 19:03] VITALS: BMI 33.7
[2020-08-08 01:57] VITALS: BP 146/89; PULSE 59; RESP 12; TEMP 37.1; O2SAT 99; BMI 31.9
--- NOTE | 2020-08-08 01:58 | DI.CT.S_ITS ---
PROCEDURE: CT HEAD/BRAIN WO CON INDICATIONS: fall and hit head TECHNIQUE: Noncontrast 4.5 mm thick angled axial sections acquired from the foramen magnum to the vertex, with coronal and sagittal reformats. For radiation dose reduction, the following was used: automated exposure control, adjustment of mA and/or kV according to patient size. COMPARISON: [facility], CT, CT FACIAL BONES WO CON, 08/08/2020, 2:02. [facility], CT, CT HEAD/BRAIN WO CON, 04/24/2020, 1:23. FINDINGS: Image quality: Excellent. CSF spaces: Basal cisterns are patent. No extra-axial fluid collections. The ventricles are symmetric in size and shape. Brain: No intracranial bleeds or masses. There is cerebral volume loss for age, with resultant ventricular and sulcal prominence. There are periventricular and deep white matter chronic small vessel ischemic changes. There is extensive intracranial internal carotid artery atherosclerosis. Skull and face: Calvarium and visualized facial bones appear intact, without suspicious lesions. Sinuses: Visualized sinuses and mastoids are clear. IMPRESSION: No acute intracranial hemorrhage is seen. No acute intracranial process is seen. Extensive intracranial arterial calcification. Note is made of age-appropriate brain parenchymal volume loss and chronic small vessel ischemic changes. Note: No significant discrepancy from the preliminary report. Dictated by: Oliverio Rodrigues M.D. on 08/08/2020 at 7:09 Approved by: Oliverio Rodrigues M.D. on 08/08/2020 at 7:11
--- NOTE | 2020-08-08 01:58 | DI.CT.S_ITS ---
PROCEDURE: CT FACIAL BONES WO [facility] INDICATIONS: fall and hit face and nose TECHNIQUE: Noncontrast 2.5 mm thick axial images acquired from the mandible through the frontal sinuses, with coronal and sagittal reformatting. For radiation dose reduction, the following was used: automated exposure control, adjustment of mA and/or kV according to patient size. COMPARISON: [facility], CT, CT HEAD/BRAIN WO [facility], 08/08/2020, 2:02. [facility], CT, CT FACIAL BONES WO CON, 04/24/2020, 1:23. FINDINGS: Image quality: Excellent. Bones and teeth: Mildly displaced nasal bone fractures are seen. No definite acute nasal septal fracture can be seen. Orbital armas are intact. Sinus armas show no fracture or deformity. Visualized portions of the mandible demonstrate no fractures or subluxation. Zygomatic arches are intact. Pterygoid plates are intact. Visualized portions of the skull base and auditory canals are intact. Sinuses: There is a blood seen within the right maxillary sinus. Mild mucosal thickening is seen elsewhere within the paranasal sinuses. Soft tissues: Right cheek soft tissue swelling is seen. There is a right forehead scalp contusion seen. No enlarged lymph nodes. No soft tissue lacerations or debris. Vascular: Visualized vascular structures appear normal in the absence of contrast. Bony vascular foramina and canals are intact. IMPRESSION: Mildly displaced nasal bone fractures. Blood is seen within the right maxillary sinus. Right forehead contusion and there is right cheek soft tissue swelling. Note: No significant discrepancy from the preliminary report. Dictated by: Oliverio Rodrigues M.D. on 08/08/2020 at 7:11 Approved by: Oliverio Rodrigues M.D. on 08/08/2020 at 7:13
--- NOTE | 2020-08-08 01:59 | ED.GENADULT ---
HPI - General Adult General Chief complaint: Fall Stated complaint: GLF Time Seen by Provider: 08/08/20 01:58 Source: patient and EMS Mode of arrival: EMS Limitations: no limitations History of Present Illness HPI narrative: A 70-year-old female. She is a DNR with limited interventions. Here for evaluation of a nose bleed that she sustained after she fell. She states she was sitting on the NG for bed. She is unsure how she fell that she fell forward hitting her head. There was no loss of conscious. She is not on anticoagulation. She started bleeding out of the right side of her nose. They could not get it stopped. Patient arrived with a nose clamp in place by EMS. Related Data Home Medications Medication Instructions Recorded Confirmed acetaminophen 650 mg 650 mg PO Q4H PRN tab 02/18/18 05/04/20 tablet,extended release atenolol 25 mg tablet 25 mg PO DAILY 02/18/18 05/06/20 atorvastatin 20 mg tablet 20 mg PO DAILY 02/18/18 05/06/20 lisinopril 20 mg tablet 40 mg PO DAILY 02/18/18 05/06/20 venlafaxine 75 mg tablet 300 mg PO DAILY tab 02/18/18 05/06/20 aspirin 81 mg PO DAILY 03/08/18 05/04/20 Biofreeze (menthol) 1 applic TOPICAL BID 05/04/20 05/04/20 hydrochlorothiazide 12.5 mg PO QAM 05/04/20 05/06/20 methylphenidate HCl [Ritalin] 10 mg PO BID 05/04/20 05/06/20 Previous Rx's Medication Instructions Recorded hydrocodone-acetaminophen 1 tab PO Q8H PRN #20 tab 04/24/20 ondansetron 4 mg PO Q8H PRN #10 tab 04/24/20 hydroxyzine pamoate [Vistaril] 25 mg PO TID-QID PRN #60 cap 05/06/20 oxycodone-acetaminophen [Percocet] 2 tab PO Q4-6H PRN #60 tab 05/06/20 platform walker #1 ea 05/07/20 Allergies Allergy/AdvReac Type Severity Reaction Status Date / Time No Known Drug Allergies Allergy Verified 08/08/20 02:01 Review of Systems Constitutional Constitutional: Denies fever(s) and Denies headache(s) ENT Ears, Nose, Mouth, and Throat: Denies headache(s) Comments: Nose bleed Cardiovascular Cardiovascular: Denies chest pain and Denies dyspnea Respiratory Respiratory: Denies dyspnea Integumentary/Breasts Skin/Breast: Denies lesions and Denies rash Neurologic Neurologic: Denies behavioral changes and Denies headache(s) Psychiatric Psychiatric: Denies behavioral changes Hematologic/Lymphatic Hematologic/Lymphatic: Denies easy bleeding and Denies easy bruising Patient History Medical History Closed right humeral fracture Depression Hepatitis C Hypertension Narcolepsy and cataplexy Obesity (BMI 30-39.9) Obstructive sleep apnea of adult Stroke Surgical History (Updated 05/04/20 @ 08:15 by Carine Almeida RN) History of section (1979) History of surgery on upper extremity (1985) Family History Mother Cancer Social History marital status: unmarried,single number of children: 3 household members: none lives independently: No caregiver/support person: Yes housing: assisted living facility pets and animals: No Smoking Status: Current every day smoker second hand exposure: Yes alcohol intake: current substance use type: marijuana caffeine: Yes (15-20 20-oz cups daily) Smoking Status: Current every day smoker alcohol intake frequency: a few times a month Substance Use Type: former substance user and methamphetamine Exam Initial Vital Signs Initial Vital Signs: Vital Signs Temperature 98.8 F 08/08/20 01:57 Pulse Rate 59 L 08/08/20 01:57 Respiratory Rate 12 08/08/20 01:57 Blood Pressure 146/89 H 08/08/20 01:57 Pulse Oximetry 99 08/08/20 01:57 Const General: cooperative and comfortable HENMT Nose: septum normal and epistaxis Face and sinus: normal facial exam Resp Effort & Inspection: normal respiratory effort Skin Other: Small superficial abrasion over bridge of nose Neuro General: patient alert and patient awake Extrem General: capillary refill normal Psych Appearance: grossly normal and well kempt Course Orders Ordered: ED Orders 08/08/20 01:58 CT facial bones wo con Stat CT head/brain wo con Stat Vital Signs Vital signs: Vital Signs - 8 hr 08/08/20 01:57 Temperature 98.8 F Pulse Rate 59 L Respiratory Rate 12 Blood Pressure 146/89 H Pulse Oximetry 99 Medical Decision Making Imaging Data CT scan - head: Radiologist's Impression: Small vessel ischemic changes without definite acute intracranial process. The basal artery is dilated and heavily calcified CT face: Radiologist's Impression: Right nasal bone fractures Small hematoma in the right maxillary antrum. Facial swelling over the right maxilla MDM Narrative Medical decision making narrative: Patient is alert and oriented. The small abrasion over the bridge of her nose needs no intervention. A large blood clot was removed from the rate Neer's upon arrival. Bleeding resumes of the clamp was replaced for another 15 minutes. She went for head CT and a facial CT. These resulted in a nasal bone fracture. Upon return from the CT scan the clip was removed. There was no further bleeding after observation. No other injuries reported from the patient or found on the exam from the fall. She will be discharged home. Discharge Plan Departure Patient Disposition: Home Clinical Impression: Epistaxis, Fall, Fracture closed, nasal bone Instructions: DI for Nose Fracture, DI for Nosebleed, How to Prevent Falls Activity Restrictions/Additional Instructions: Continue all of your medications as directed. I recommend that you do not blow your nose for the next 24 hours. Contact your primary provider for follow-up. Return to the emergency department for any new or worsening symptoms Prescriptions: No Action aspirin 81 mg Tablet,Chewable 81 mg PO DAILY RF: 0 hydrocodone-acetaminophen 5-325 mg tablet 1 tab PO Q8H PRN (Reason: pain) Qty: 20 RF: 0 ondansetron 4 mg tablet,disintegrating 4 mg PO Q8H PRN (Reason: nausea and vomiting) Qty: 10 RF: 0 methylphenidate HCl [Ritalin] 10 mg Tablet 10 mg PO BID RF: 0 hydrochlorothiazide 12.5 mg Tablet 12.5 mg PO QAM RF: 0 Biofreeze (menthol) 4 % Gel 1 applic TOPICAL BID RF: 0 oxycodone-acetaminophen [Percocet] 5-325 mg tablet 2 tab PO Q4-6H PRN (Reason: pain) Qty: 60 RF: 0 hydroxyzine pamoate [Vistaril] 25 mg capsule 25 mg PO TID-QID PRN (Reason: spasms) Qty: 60 RF: 0 (DME) platform walker Qty: 1 RF: 0 atorvastatin 20 mg tablet 20 mg PO DAILY RF: 0 venlafaxine 75 mg tablet 300 mg PO DAILY RF: 0 lisinopril 20 mg tablet 40 mg PO DAILY RF: 0 atenolol 25 mg tablet 25 mg PO DAILY RF: 0 acetaminophen 650 mg tablet extended release 650 mg PO Q4H PRN (Reason: pain) RF: 0
[2020-08-08 05:00] VITALS: BP 119/65; PULSE 57; RESP 20; O2SAT 99
--- NOTE | 2020-08-08 05:12 | PC.NURSE ---
Patient's care facility unable to come pick up attendant patient. Stated on dayshift transport is available. Patient sleeping. Will monitor until transportation home is available.
[2020-08-08 07:40] VITALS: BP 122/78; PULSE 72; RESP 15; O2SAT 97
== END 2020-08-08 07:40 | disposition home or self-care (01) ==
PROVIDERS: Emergency Provider Emergency Medicine
DX: S02.2XXA Fracture of nasal bones, initial encounter for closed fracture (principal); R04.0 Epistaxis; S09.90XA Unspecified injury of head, initial encounter; W19.XXXA Unspecified fall, initial encounter; I10 Essential (primary) hypertension; E66.9 Obesity, unspecified; Z68.31 Body mass index [BMI] 31.0-31.9, adult; Z86.73 Personal history of transient ischemic attack (TIA), and cerebral infarction without residual deficits
CPT/HCPCS: 70450; 70486; 99283; 99284

== ENCOUNTER → 2020-08-17 08:20 | Outpatient (ROUT) | payer MEDICARE, MEDICAID, SELFPAY ==
[2020-05-06 19:03] VITALS: BMI 33.7
[2020-08-17 08:43] LABS: Add Manual Diff / Slide Review NO; Basophils Absolute Auto 0 /uL (0-100); Eosinophils Absolute Auto 0 /uL (0-450); Eosinophils Percent Auto 0.1 % (2-4); Hematocrit 36.5 % (36-46); Hemoglobin 12.1 g/dL (12.0-16.0); Lymphocytes Absolute Auto 1300 /uL (1100-4500); Lymphocytes Percent Auto 35.4 % (25-40); Mean Corpuscular HGB Conc 33.1 % (30-36); Mean Corpuscular Hemoglobin 27.4 PG (26-34); Mean Corpuscular Volume 82.9 fL (80-100); Monocytes Absolute Auto 400 /uL (0-900); Monocytes Percent Auto 11.7 % (3-14); Neutrophils Absolute Auto 2000 /uL (1500-7000); Neutrophils Percent Auto 52.8 % (50-75); Platelet Count 107 X10^3/uL (150-400); Red Cell Distribution Width 14.4 % (11.6-14.8); White Blood Cell Count 3.8 X10^3/uL (4.5-11.0)
[2020-08-17 08:50] LABS: BUN Creatinine Ratio 20.2 (6-22); Blood Urea Nitrogen 23 mg/dL (7-17); Calcium 9.6 mg/dL (8.4-10.2); Carbon Dioxide 30 mmol/L (22-32); Chloride 104 mmol/L (98-107); Estimated Glomerular Filt Rate 47.1 mL/min (>60); Glucose 95 mg/dL (80-110); HEMOLYSIS < 15 (0-50); Potassium 4.1 mmol/L (3.4-5.1); Sodium 138 mmol/L (137-145)
== END ==
PROVIDERS: Visit Provider Nurse Practitioner Gerontology
DX: N18.9 Chronic kidney disease, unspecified (principal); D70.9 Neutropenia, unspecified
CPT/HCPCS: 36415; 80048; 85025

== ENCOUNTER → 2020-08-24 07:46 | Outpatient (ROUT) | payer MEDICARE, MEDICAID, SELFPAY ==
[2020-05-06 19:03] VITALS: BMI 33.7
[2020-08-24 08:17] LABS: Add Manual Diff / Slide Review NO; Basophils Absolute Auto 0 /uL (0-100); Basophils Percent Auto 0.1 % (0-2); Eosinophils Absolute Auto 0 /uL (0-450); Eosinophils Percent Auto 0.1 % (2-4); Hematocrit 33.5 % (36-46); Hemoglobin 11.2 g/dL (12.0-16.0); Lymphocytes Absolute Auto 1300 /uL (1100-4500); Lymphocytes Percent Auto 36.9 % (25-40); Mean Corpuscular HGB Conc 33.4 % (30-36); Mean Corpuscular Hemoglobin 27.6 PG (26-34); Mean Corpuscular Volume 82.7 fL (80-100); Monocytes Absolute Auto 400 /uL (0-900); Monocytes Percent Auto 10.3 % (3-14); Neutrophils Absolute Auto 1800 /uL (1500-7000); Neutrophils Percent Auto 52.6 % (50-75); Platelet Count 95 X10^3/uL (150-400); Red Blood Cell Count 4.05 X10^6/uL (4.0-5.2); Red Cell Distribution Width 14.8 % (11.6-14.8); White Blood Cell Count 3.5 X10^3/uL (4.5-11.0)
[2020-08-24 08:27] LABS: BUN Creatinine Ratio 21.1 (6-22); Blood Urea Nitrogen 24 mg/dL (7-17); Calcium 9.2 mg/dL (8.4-10.2); Carbon Dioxide 33 mmol/L (22-32); Chloride 102 mmol/L (98-107); Estimated Glomerular Filt Rate 47.1 mL/min (>60); Glucose 96 mg/dL (80-110); HEMOLYSIS < 15 (0-50); Sodium 137 mmol/L (137-145)
== END ==
PROVIDERS: Visit Provider Internal Medicine
DX: D70.9 Neutropenia, unspecified (principal); N18.9 Chronic kidney disease, unspecified
CPT/HCPCS: 36415; 80048; 85025

== ENCOUNTER → 2020-10-26 12:12 | Outpatient (CLI) | payer MEDICARE, MEDICAID, SELFPAY ==
[2020-05-06 19:03] VITALS: BMI 33.7
--- NOTE | 2020-10-26 | DI.MRI.S_ITS ---
PROCEDURE: MR HEAD/BRAIN WO CON INDICATIONS: Personal history of transient ischemic attack (TIA TECHNIQUE: Non-contrast axial T1 spin echo, axial T2 fast spin echo, sagittal and axial FLAIR, coronal T2 fast spin echo, axial gradient echo, axial diffusion and ADC through the brain. COMPARISON: None. FINDINGS: Image quality: Excellent. CSF spaces: Ventricles appear symmetric in size and shape. Basal cisterns are patent. No extra-axial fluid collections. Brain: No intracranial bleeds or mass effects. There is cerebral volume loss for age. There are periventricular and deep white matter chronic small vessel ischemic changes. Brainstem appears normal. Diffusion-weighted images show no acute ischemic insults. No chronic ischemic insults. Normal intravascular flow voids are present. Skull and face: Calvarial bone marrow is normal in signal. Orbits are normal. Sinuses: Sinuses and mastoids are clear. IMPRESSION: Diffuse small white matter changes, probably represent chronic microvascular ischemic disease, versus statistically less likely demyelination or other infectious, inflammatory, neurodegenerative etiology, technically nonspecific. No evidence of acute ischemia Dictated by: Ric Ty M.D. on 10/26/2020 at 13:23 Approved by: Ric Ty M.D. on 10/26/2020 at 13:26
== END ==
PROVIDERS: PCP Internal Medicine; Referring Provider Internal Medicine; Visit Provider Internal Medicine
DX: Z09 Encounter for follow-up examination after completed treatment for conditions other than malignant neoplasm; Z86.73 Personal history of transient ischemic attack (TIA), and cerebral infarction without residual deficits; G47.10 Hypersomnia, unspecified; B17.10 Acute hepatitis C without hepatic coma; I10 Essential (primary) hypertension; I67.89 Other cerebrovascular disease; G47.419 Narcolepsy without cataplexy
CPT/HCPCS: 70551

== ENCOUNTER → 2020-11-23 08:01 | Outpatient (ROUT) | payer MEDICARE, MEDICAID, SELFPAY ==
[2020-05-06 19:03] VITALS: BMI 33.7
[2020-11-23 09:20] LABS: BUN Creatinine Ratio 22.8 (6-22); Blood Urea Nitrogen 26 mg/dL (7-17); Calcium 9.6 mg/dL (8.4-10.2); Carbon Dioxide 29 mmol/L (22-32); Chloride 103 mmol/L (98-107); Estimated Glomerular Filt Rate 47.1 mL/min (>60); Glucose 85 mg/dL (80-110); HEMOLYSIS < 15 (0-50); Potassium 4.2 mmol/L (3.4-5.1); Sodium 137 mmol/L (137-145)
== END ==
PROVIDERS: PCP Internal Medicine; Visit Provider Nurse Practitioner Family
DX: N18.9 Chronic kidney disease, unspecified (principal)
CPT/HCPCS: 36415; 80048

== ENCOUNTER → 2020-12-20 16:16 | Outpatient (ROUT) | payer MEDICARE, MEDICAID, SELFPAY ==
[2020-05-06 19:03] VITALS: BMI 33.7
[2020-12-20 16:48] LABS: Prothrombin Time 11.3 SECONDS (10.1-12.7)
[2020-12-20 16:51] LABS: PTT Partial Thromboplastin Tim 44 SECONDS (26.4-36.2)
[2020-12-20 16:53] LABS: Alanine Aminotransferase 21 IU/L (<35); Albumin Globulin Ratio 1.4 (1.0-2.8); Alkaline Phosphatase 93 U/L (38-126); Aspartate Aminotransferase 24 IU/L (14-36); BUN Creatinine Ratio 23.8 (6-22); Bilirubin Total 0.3 mg/dL (0.2-1.3); Blood Urea Nitrogen 29 mg/dL (7-17); Calcium 9.4 mg/dL (8.4-10.2); Carbon Dioxide 29 mmol/L (22-32); Chloride 101 mmol/L (98-107); Estimated Glomerular Filt Rate 43.6 mL/min (>60); Globulin 2.8 g/dL (1.7-4.1); Glucose 109 mg/dL (80-110); HEMOLYSIS < 15 (0-50); Potassium 4.3 mmol/L (3.4-5.1); Sodium 139 mmol/L (137-145); Total Protein 6.8 g/dL (6.3-8.2)
== END ==
PROVIDERS: PCP Internal Medicine; Visit Provider Internal Medicine
DX: D75.9 Disease of blood and blood-forming organs, unspecified (principal)
CPT/HCPCS: 80053; 85025; 85610; 85730

== ENCOUNTER → 2020-12-21 08:20 | Outpatient (ROUT) | payer MEDICARE, MEDICAID, SELFPAY ==
[2020-05-06 19:03] VITALS: BMI 33.7
[2020-12-21 08:57] LABS: Add Manual Diff / Slide Review NO; Basophils Absolute Auto 0 /uL (0-100); Basophils Percent Auto 0.1 % (0-2); Eosinophils Absolute Auto 0 /uL (0-450); Hematocrit 33.6 % (36-46); Hemoglobin 11.1 g/dL (12.0-16.0); Lymphocytes Absolute Auto 1000 /uL (1100-4500); Lymphocytes Percent Auto 30.3 % (25-40); Mean Corpuscular Hemoglobin 27.7 PG (26-34); Mean Corpuscular Volume 83.7 fL (80-100); Monocytes Absolute Auto 300 /uL (0-900); Neutrophils Absolute Auto 2000 /uL (1500-7000); Neutrophils Percent Auto 59.6 % (50-75); Platelet Count 106 X10^3/uL (150-400); Red Blood Cell Count 4.01 X10^6/uL (4.0-5.2); Red Cell Distribution Width 14.6 % (11.6-14.8); White Blood Cell Count 3.3 X10^3/uL (4.5-11.0)
== END ==
PROVIDERS: PCP Internal Medicine; Visit Provider Internal Medicine
DX: R58 Hemorrhage, not elsewhere classified (principal); D69.9 Hemorrhagic condition, unspecified
CPT/HCPCS: 36415; 85025

== ENCOUNTER → 2021-03-22 08:10 | Outpatient (ROUT) | payer MEDICARE, MEDICAID, SELFPAY ==
[2020-05-06 19:03] VITALS: BMI 33.7
[2021-03-22 10:23] LABS: BUN Creatinine Ratio 22.8 (6-22); Blood Urea Nitrogen 28 mg/dL (7-17); Calcium 9.4 mg/dL (8.4-10.2); Carbon Dioxide 27 mmol/L (22-32); Chloride 105 mmol/L (98-107); Glucose 83 mg/dL (80-110); HEMOLYSIS < 15 (0-50); Potassium 4.2 mmol/L (3.4-5.1); Sodium 136 mmol/L (137-145)
== END ==
PROVIDERS: PCP Internal Medicine; Visit Provider Nurse Practitioner Family
DX: N18.9 Chronic kidney disease, unspecified (principal)
CPT/HCPCS: 36415; 80048

== ENCOUNTER → 2021-05-16 19:32 | Outpatient (ROUT) | payer MEDICARE, MEDICAID, SELFPAY ==
[2020-05-06 19:03] VITALS: BMI 33.7
[2021-05-16 19:47] LABS: Appearance Urine UA CLOUDY; Bilirubin Urine UA NEGATIVE (NEGATIVE); Color Urine UA YELLOW; Glucose Urine UA NEGATIVE (Negative); Ketones Urine UA NEGATIVE (NEGATIVE); Leukocyte Esterase Urine UA TRACE (NEGATIVE); Nitrite Urine UA NEGATIVE (Negative); Occult Blood Urine UA 3+ (Negative); Protein Urine UA TRACE (Negative)
[2021-05-16 19:56] LABS: RBC Urine 30-100/HPF (0-5/HPF); Squamous Epithelial Cell Urine 1-5 /HPF (0-5/HPF); Transitional Epi Cells Urine 10-30/HPF (0-5/HPF); WBC Urine 5-10/HPF (0-5/HPF)
[2021-05-16 19:57] LABS: Amorphous Sediment Urine 1+; Bacteria Urine Many (>30); Culture Indicated Urine Specimen Cultured
== END ==
PROVIDERS: PCP Internal Medicine; Visit Provider Nurse Practitioner Gerontology
DX: R31.9 Hematuria, unspecified (principal); K92.1 Melena
CPT/HCPCS: 81001; 87077; 87086; 87186

== ENCOUNTER → 2021-06-01 08:57 | Outpatient (ROUT) | payer MEDICARE, MEDICAID, SELFPAY ==
[2020-05-06 19:03] VITALS: BMI 33.7
[2021-06-02 09:40] LABS: Fecal Immunochemical Test Negative (Negative)
== END ==
PROVIDERS: PCP Internal Medicine; Visit Provider Nurse Practitioner Family
DX: M25.619 Stiffness of unspecified shoulder, not elsewhere classified (principal)
CPT/HCPCS: 82274

== ENCOUNTER → 2021-06-07 08:09 | Outpatient (ROUT) | payer MEDICARE, MEDICAID, SELFPAY ==
[2020-05-06 19:03] VITALS: BMI 33.7
[2021-06-07 08:55] LABS: Add Manual Diff / Slide Review NO; Basophils Absolute Auto 0 /uL (0-100); Basophils Percent Auto 0.2 % (0-2); Eosinophils Absolute Auto 0 /uL (0-450); Eosinophils Percent Auto 0.1 % (2-4); Hematocrit 34.4 % (36-46); Hemoglobin 11.7 g/dL (12.0-16.0); Lymphocytes Absolute Auto 1300 /uL (1100-4500); Mean Corpuscular HGB Conc 33.9 % (30-36); Mean Corpuscular Volume 82.6 fL (80-100); Monocytes Absolute Auto 300 /uL (0-900); Monocytes Percent Auto 9.6 % (3-14); Neutrophils Absolute Auto 1700 /uL (1500-7000); Neutrophils Percent Auto 51.1 % (50-75); Platelet Count 98 X10^3/uL (150-400); Red Blood Cell Count 4.16 X10^6/uL (4.0-5.2); Red Cell Distribution Width 14.5 % (11.6-14.8); White Blood Cell Count 3.4 X10^3/uL (4.5-11.0)
[2021-06-07 09:32] LABS: Alanine Aminotransferase 22 IU/L (<35); Albumin 3.6 g/dL (3.5-5.0); Albumin Globulin Ratio 1.3 (1.0-2.8); Alkaline Phosphatase 64 U/L (38-126); Aspartate Aminotransferase 25 IU/L (14-36); BUN Creatinine Ratio 21.9 (6-22); Bilirubin Total 0.5 mg/dL (0.2-1.3); Blood Urea Nitrogen 30 mg/dL (7-17); Calcium 9.1 mg/dL (8.4-10.2); Carbon Dioxide 28 mmol/L (22-32); Chloride 102 mmol/L (98-107); Globulin 2.7 g/dL (1.7-4.1); Glucose 82 mg/dL (80-110); HEMOLYSIS 60 (0-50); Potassium 4.2 mmol/L (3.4-5.1); Sodium 138 mmol/L (137-145); Total Protein 6.3 g/dL (6.3-8.2)
== END ==
PROVIDERS: PCP Internal Medicine; Visit Provider Nurse Practitioner Family
DX: N18.9 Chronic kidney disease, unspecified (principal); N93.9 Abnormal uterine and vaginal bleeding, unspecified
CPT/HCPCS: 36415; 80053; 85025

== ENCOUNTER → 2021-06-09 09:32 | Outpatient (CLI) | payer MEDICARE, MEDICAID, SELFPAY ==
[2020-05-06 19:03] VITALS: BMI 33.7
--- NOTE | 2021-06-09 09:33 | DI.US.S_ITS ---
PROCEDURE: US PELVIC COMPLETE INDICATIONS: POSTMENOPAUSAL BLEEDING TECHNIQUE: Real-time scanning was performed of the pelvic organs, with image documentation. Additional endovaginal scanning was necessary due to incomplete visualization of the adnexal and endometrial structures by transabdominal scanning. COMPARISON: None. FINDINGS: Uterus: Heterogeneous echotexture, anteverted, and measures 7.5 x 5.3 x 4.6 cm. The endometrium measures 5.7 mm in combined thickness. Hypoechoic lesions in the cervix, compatible with nabothian cysts. Ovaries: Not well visualized. Other: No pathologic free abdominal or pelvic fluid. IMPRESSION: No significant abnormality. Dictated by: Fred Mendes M.D. on 06/09/2021 at 10:39 Approved by: Fred Mendes M.D. on 06/09/2021 at 10:46
== END ==
PROVIDERS: PCP Internal Medicine; Referring Provider Internal Medicine; Visit Provider Internal Medicine
DX: N95.0 Postmenopausal bleeding (principal)
CPT/HCPCS: 76830; 76856

== ENCOUNTER → 2021-06-15 12:52 | Outpatient (ROUT) | payer MEDICARE, MEDICAID, SELFPAY ==
[2020-05-06 19:03] VITALS: BMI 33.7
[2021-06-15 14:11] LABS: COVID-19 CEPHEID PCR (VTM/NP) Negative (Negative)
== END ==
PROVIDERS: PCP Internal Medicine; Visit Provider Internal Medicine
DX: U07.1 COVID-19 (principal)
CPT/HCPCS: U0003

== ENCOUNTER 2021-06-26 10:40 | Emergency (ER) | payer MEDICARE, MEDICAID, SELFPAY ==
[2020-05-06 19:03] VITALS: BMI 33.7
--- NOTE | 2021-06-26 10:42 | DI.US.S_ITS ---
PROCEDURE: US PELVIC COMPLETE INDICATIONS: BLEEDING TECHNIQUE: Real-time scanning was performed of the pelvic organs, with image documentation. Additional endovaginal scanning was necessary due to incomplete visualization of the adnexal and endometrial structures by transabdominal scanning. COMPARISON: [facility], , US PELVIC COMPLETE, 06/09/2021, 9:44. FINDINGS: Uterus: Uterus is anteverted and normal in size at 7.7 x 4.1 x 6.1 cm. The myometrium is dense. The endometrium measures 9 mm combined thickness. Within the cervix, there is thickening and heterogeneity of the endocervical canal, measuring 21 mm. Ovaries: Neither ovary is seen. No adnexal masses are seen on either side. Other: No pathologic free abdominal or pelvic fluid. IMPRESSION: The endometrial stripe is thickened in this patient with a given history of postmenopausal bleeding. Differential diagnosis includes endometrial neoplasm and endometrial hyperplasia. Recommend correlation with endometrial histology, if clinically appropriate. There is also thickening and heterogeneity of the endocervical canal. Please consider cervical neoplasia. We strive to produce accurate, complete, and clear reports of imaging services. To assist us in improving patient care, this report was composed using standard report templates and voice recognition software. Therefore, it may contain abnormal punctuation, insertions and/or omissions. Occasional wrong-word or sound-alike substitutions may occur. Though we review the report and make efforts to correct it, we do recommend that the report be read carefully in proper context to recognize any text inaccuracies. Dictated by: Oliverio Rodrigues M.D. on 06/26/2021 at 11:19 Approved by: Oliverio Rodrigues M.D. on 06/26/2021 at 11:22
[2021-06-26 10:56] VITALS: BP 125/75; PULSE 60; RESP 16; TEMP 36.5; O2SAT 98; BMI 31.9
[2021-06-26 11:05] LABS: Add Manual Diff / Slide Review NO; Basophils Absolute Auto 0 /uL (0-100); Basophils Percent Auto 0.1 % (0-2); Eosinophils Absolute Auto 0 /uL (0-450); Eosinophils Percent Auto 0.1 % (2-4); Hematocrit 37.1 % (36-46); Hemoglobin 12.2 g/dL (12.0-16.0); Lymphocytes Absolute Auto 1100 /uL (1100-4500); Lymphocytes Percent Auto 23.9 % (25-40); Mean Corpuscular HGB Conc 32.9 % (30-36); Mean Corpuscular Hemoglobin 27.4 PG (26-34); Mean Corpuscular Volume 83.1 fL (80-100); Monocytes Absolute Auto 600 /uL (0-900); Monocytes Percent Auto 12.8 % (3-14); Neutrophils Absolute Auto 2800 /uL (1500-7000); Neutrophils Percent Auto 63.1 % (50-75); Platelet Count 107 X10^3/uL (150-400); Red Blood Cell Count 4.46 X10^6/uL (4.0-5.2); Red Cell Distribution Width 14.4 % (11.6-14.8); White Blood Cell Count 4.4 X10^3/uL (4.5-11.0)
[2021-06-26 11:14] LABS: BUN Creatinine Ratio 19.4 (6-22); Blood Urea Nitrogen 30 mg/dL (7-17); Calcium 9.5 mg/dL (8.4-10.2); Carbon Dioxide 27 mmol/L (22-32); Chloride 103 mmol/L (98-107); Glucose 95 mg/dL (80-110); HEMOLYSIS < 15 (0-50); Potassium 4.2 mmol/L (3.4-5.1); Sodium 137 mmol/L (137-145)
--- NOTE | 2021-06-26 11:22 | ED_ITS ---
HPI - General Adult General Chief complaint: Urogenital-Female Stated complaint: Vaginal Bleeding Time Seen by Provider: 06/26/21 10:40 Source: patient Mode of arrival: EMS Limitations: no limitations History of Present Illness HPI narrative: Patient is a 71-year-old female. Arrived by EMS for evaluation of vaginal bleeding. She states that she started having some vaginal bleeding approximately 1 month ago. She was supposed to see a provider for this last Sunday but the appointment had to be canceled. The patient does not know why the appointment was canceled. Last evening apparently the patient had any increase in the amount of bleeding. She reports no other symptoms to include fevers or abdominal pain or nausea or vomiting. She did have some urinary symptoms last week which include frequency and dysuria but those have since resolved. No change in bowel habits. She thinks that she has had an ultrasound in the past but is not 100% sure of this. Related Data Home Medications Medication Instructions Recorded Confirmed acetaminophen 650 mg 650 mg PO Q4H PRN tab 02/18/18 05/04/20 tablet,extended release atenolol 25 mg tablet 25 mg PO DAILY 02/18/18 05/06/20 atorvastatin 20 mg tablet 20 mg PO DAILY 02/18/18 05/06/20 lisinopril 20 mg tablet 40 mg PO DAILY 02/18/18 05/06/20 venlafaxine 75 mg tablet 300 mg PO DAILY tab 02/18/18 05/06/20 aspirin 81 mg chewable tablet 81 mg PO DAILY 03/08/18 05/04/20 hydrochlorothiazide 12.5 mg tablet 12.5 mg PO QAM 05/04/20 05/06/20 menthol 4 % topical gel (Biofreeze 1 applic TOPICAL BID 05/04/20 05/04/20 (menthol)) methylphenidate HCl 10 mg tablet 10 mg PO BID 05/04/20 05/06/20 (Ritalin) Previous Rx's Medication Instructions Recorded hydrocodone 5 mg-acetaminophen 325 1 tab PO Q8H PRN #20 tab 04/24/20 mg tablet ondansetron 4 mg disintegrating 4 mg PO Q8H PRN #10 tab 04/24/20 tablet hydroxyzine pamoate 25 mg capsule 25 mg PO TID-QID PRN #60 cap 05/06/20 (Vistaril) oxycodone-acetaminophen 5 mg-325 2 tab PO Q4-6H PRN #60 tab 05/06/20 mg tablet (Percocet) platform walker #1 ea 05/07/20 Allergies Allergy/AdvReac Type Severity Reaction Status Date / Time No Known Drug Allergies Allergy Verified 08/08/20 02:01 Review of Systems Constitutional Constitutional: Reports system reviewed and no additional complaints, except as documented Gastrointestinal Gastrointestinal: Reports as per HPI and Reports system reviewed and no additi onal complaints, except as documented Genitourinary Genitourinary: Reports system reviewed and no additional complaints, except as documented and Reports as per HPI Musculoskeletal Musculoskeletal: Reports system reviewed and no additional complaints, except as documented and Reports as per HPI Integumentary/Breasts Skin/Breast: Reports system reviewed and no additional complaints, except as documented Neurologic Neurologic: Reports system reviewed and no additional complaints, except as documented Hematologic/Lymphatic Hematologic/Lymphatic: Reports system reviewed and no additional complaints, except as documented On Anticoagulants: No Patient History Medical History Closed right humeral fracture Depression Hepatitis C Hypertension Narcolepsy and cataplexy Obesity (BMI 30-39.9) Obstructive sleep apnea of adult Stroke Surgical History (Updated 05/04/20 @ 08:15 by Carine Almeida RN) History of section (1979) History of surgery on upper extremity (1985) Family History Mother Cancer Social History marital status: unmarried,single number of children: 3 household members: none lives independently: No caregiver/support person: Yes housing: assisted living facility pets and animals: No Smoking Status: Current every day smoker second hand exposure: Yes alcohol intake: current substance use type: marijuana caffeine: Yes (15-20 20-oz cups daily) Smoking Status: Current every day smoker alcohol intake frequency: a few times a month Substance Use Type: former substance user and methamphetamine Exam Initial Vital Signs Initial Vital Signs: Vital Signs Temperature 97.7 F 06/26/21 10:56 Pulse Rate 60 06/26/21 10:56 Respiratory Rate 16 06/26/21 10:56 Blood Pressure 125/75 06/26/21 10:56 Pulse Oximetry 98 06/26/21 10:56 Const General: cooperative, comfortable and well developed Limitations: mental status not altered HENMT Head: normal to inspection and normocephalic Resp Effort & Inspection: normal respiratory effort Cardio Rate: regular rate GI Palpation: soft, No firm and No tender Other: Will defer on a vaginal exam today given her history Back/Spine/Pelvis Back: normal to inspection and No CVA tenderness Skin Rashes: no rashes Neuro General: patient alert, patient awake and moves all extremities Extrem General: capillary refill normal Psych Appearance: grossly normal and well kempt Course Orders Ordered: ED Orders 06/26/21 10:42 US pelvic complete Stat Basic Metabolic Panel Stat Complete Blood Count AUTO DIFF Stat 06/26/21 12:15 Ictotest Urine Stat Urinalysis and Microscopic Stat Urine Culture Stat Vital Signs Vital signs: Vital Signs - 8 hr 06/26/21 10:56 06/26/21 11:30 06/26/21 12:42 Temperature 97.7 F Pulse Rate 60 63 59 L Respiratory Rate 16 20 16 Blood Pressure 125/75 106/57 L 113/65 Pulse Oximetry 98 96 Medical Decision Making Lab Data Lab results reviewed: Yes I reviewed the patient's lab results. Result diagrams: 06/26/21 10:42 06/26/21 10:42 Labs: Lab Results 06/26/21 06/26/21 06/26/21 Range/Units 10:42 10:42 12:15 WBC 4.4 L (4.5-11.0) X10^3/uL RBC 4.46 (4.0-5.2) X10^6/uL Hgb 12.2 (12.0-16.0) g/dL Hct 37.1 (36-46) % MCV 83.1 (80-100) fL MCH 27.4 (26-34) PG MCHC 32.9 (30-36) % RDW 14.4 (11.6-14.8) % Plt Count 107 L (150-400) X10^3/uL Neut % (Auto) 63.1 (50-75) % Lymph % (Auto) 23.9 L (25-40) % [place] % (Auto) 12.8 (3-14) % Eos % (Auto) 0.1 L (2-4) % Baso % (Auto) 0.1 (0-2) % Neut # (Auto) 2800 (6809-8018) /uL Lymph # (Auto) 1100 (0129-0957) /uL [place] # (Auto) 600 (0-900) /uL Eos # (Auto) 0 (0-450) /uL Baso # (Auto) 0 (0-100) /uL Sodium 137 (137-145) mmol/L Potassium 4.2 (3.4-5.1) mmol/L Chloride 103 (98-107) mmol/L Carbon Dioxide 27 (22-32) mmol/L BUN 30 H (7-17) mg/dL Creatinine 1.55 H (0.52-1.04) mg/dL Estimated GFR 33.0 L (>60) mL/min BUN/Creatinine Ratio 19.4 (6-22) Glucose 95 (80-110) mg/dL Calcium 9.5 (8.4-10.2) mg/dL Urine Color Brown Urine Appearance Cloudy Urine pH 8.0 (4.5-8.0) Ur Specific [place] 1.015 (1.000-1.035) Urine Protein 2+ H (Negative) Urine Glucose (UA) Negative (Negative) g/dL Urine Ketones Trace H (NEGATIVE) Urine Occult Blood 3+ H (Negative) Urine Nitrate Negative (Negative) Urine Bilirubin 1+ H (NEGATIVE) Ur Bilirubin Confirm Negative (Negative) Urine Urobilinogen 1.0 (0.2) E.U./dL Ur Leukocyte Esterase Trace H (NEGATIVE) Urine RBC >100/hpf H (0-5/HPF) Urine WBC 1-5/hpf (0-5/HPF) Ur Squamous Epith Cells 1-5 /hpf (0-5/HPF) Triple Phos Crystals Few Urine Bacteria Many (>30) H (None) Ur Culture Indicated? Specimen cultured Imaging Data US - [employer]: Radiologist's Impression: [address] [address] Ultrasound Report Signed Patient: Adia Montero MR#: [id number] : 1950 Acct:[id number] Age/Sex: 71 / F Date of Service: 06/26/21 Loc: ED Accession Number: [id number] ?? Procedure: US pelvic complete Ordering Provider: Lanker,Mitul D.O. PROCEDURE:? US PELVIC COMPLETE ? INDICATIONS:? BLEEDING ? TECHNIQUE:? Real-time scanning was performed of the pelvic organs, with image documentation.? Additional endovaginal scanning was necessary due to incomplete visualization of the adnexal and endometrial structures by transabdominal scanning.? ? COMPARISON:? [facility], , PELVIC COMPLETE, 06/09/2021, 9:44. ? FINDINGS:? ?? Uterus:? Uterus is anteverted and normal in size at 7.7 x 4.1 x 6.1 cm. The myometrium is dense. ? The endometrium measures 9 mm combined thickness.? Within the cervix, there is thickening and heterogeneity of the endocervical canal, measuring 21 mm. ? Ovaries:? Neither ovary is seen.? No adnexal masses are seen on either side.? ? Other:? No pathologic free abdominal or pelvic fluid. ? ? IMPRESSION:? The endometrial stripe is thickened in this patient with a given history of postmenopausal bleeding.? Differential diagnosis includes endometrial neoplasm and endometrial hyperplasia. ? Recommend correlation with endometrial histology, if clinically appropriate. ? There is also thickening and heterogeneity of the endocervical canal.? Please consider cervical neoplasia. ? We strive to produce accurate, complete, and clear reports of imaging services. To assist us in improving patient care, this report was composed using standard report templates and voice recognition software. Therefore, it may contain abnormal punctuation, insertions and/or omissions. Occasional wrong-word or sound-alike substitutions may occur. Though we review the report and make efforts to correct it, we do recommend that the report be read carefully in proper context to recognize any text inaccuracies. ? ? Dictated by: Oliverio Rodrigues M.D. on 06/26/2021 at 11:19 ? ? Approved by: Oliverio Rodrigues M.D. on 06/26/2021 at 11:22? MDM Narrative Medical decision making narrative: I did hold on a pelvic exam today. Her urinalysis did have bacteria but we will wait on the culture before we treat with any antibiotics she is currently not having symptoms. She has been having vaginal bleeding for the past month. Her appointment with gynecology was canceled last Sunday and she needs to reschedule this. I did inform her the importance of doing this. Will hold on further workup for now. Patient not anemic. She was given return precautions. She expressed understanding and agreement. Discharge Plan Departure Patient Disposition: Home Clinical Impression: Abnormal vaginal bleeding Instructions: DI for Vaginal Bleeding Activity Restrictions/Additional Instructions: Continue to take all of your medications as directed. It is important that you follow-up with gynecology for further workup of the vaginal bleeding. Return to the emergency department for any new or worsening symptoms. Prescriptions: No Action aspirin 81 mg Tablet,Chewable 81 mg PO DAILY 0RF hydrocodone-acetaminophen 5-325 mg tablet 1 tab PO Q8H PRN (Reason: pain) Qty: 20 0RF ondansetron 4 mg tablet,disintegrating 4 mg PO Q8H PRN (Reason: nausea and vomiting) Qty: 10 0RF methylphenidate HCl [Ritalin] 10 mg Tablet 10 mg PO BID 0RF hydrochlorothiazide 12.5 mg Tablet 12.5 mg PO QAM 0RF Biofreeze (menthol) 4 % Gel 1 applic TOPICAL BID 0RF oxycodone-acetaminophen [Percocet] 5-325 mg tablet 2 tab PO Q4-6H PRN (Reason: pain) Qty: 60 0RF hydroxyzine pamoate [Vistaril] 25 mg capsule 25 mg PO TID-QID PRN (Reason: spasms) Qty: 60 0RF (DME) platform walker Qty: 1 0RF Rx Instructions: please dispense one platform walker s/p ORIF of right humeral fracture, expected length of need 3 months atorvastatin 20 mg tablet 20 mg PO DAILY 0RF venlafaxine 75 mg tablet 300 mg PO DAILY 0RF Label Comments: last dose given 03/07/18 ...then dc lisinopril 20 mg tablet 40 mg PO DAILY 0RF atenolol 25 mg tablet 25 mg PO DAILY 0RF acetaminophen 650 mg tablet extended release 650 mg PO Q4H PRN (Reason: pain) 0RF Referrals: Amina Merida MD [Primary Care Provider] -
[2021-06-26 11:30] VITALS: BP 106/57; PULSE 63; RESP 20; O2SAT 96
[2021-06-26 12:37] LABS: Appearance Urine UA CLOUDY; Bilirubin Urine UA 1+ (NEGATIVE); Color Urine UA BROWN; Glucose Urine UA NEGATIVE (Negative); Ketones Urine UA TRACE (NEGATIVE); Leukocyte Esterase Urine UA TRACE (NEGATIVE); Nitrite Urine UA NEGATIVE (Negative); Occult Blood Urine UA 3+ (Negative); Protein Urine UA 2+ (Negative); Specific Gravity Urine UA 1.015 (1.000-1.035)
[2021-06-26 12:42] VITALS: BP 113/65; PULSE 59; RESP 16
[2021-06-26 12:51] LABS: Ictotest Urine Negative (Negative); RBC Urine >100/HPF (0-5/HPF); WBC Urine 1-5/HPF (0-5/HPF)
[2021-06-26 12:52] LABS: Bacteria Urine Many (>30); Culture Indicated Urine Specimen Cultured; Squamous Epithelial Cell Urine 1-5 /HPF (0-5/HPF); Triple Phosphate Crystal Urine Few
== END 2021-06-26 15:18 | disposition home or self-care (01) ==
LOC: ED 13:34
PROVIDERS: Emergency Provider Emergency Medicine; PCP Internal Medicine
DX: N93.9 Abnormal uterine and vaginal bleeding, unspecified (principal)
CPT/HCPCS: 36415; 76830; 76856; 80048; 81001; 85025; 87077; 87086; 87186; 99284

== ENCOUNTER → 2021-06-28 08:16 | Outpatient (ROUT) | payer MEDICARE, MEDICAID, SELFPAY ==
[2020-05-06 19:03] VITALS: BMI 33.7
[2021-06-28 09:26] LABS: Add Manual Diff / Slide Review NO; Basophils Absolute Auto 0 /uL (0-100); Basophils Percent Auto 0.1 % (0-2); Eosinophils Absolute Auto 0 /uL (0-450); Eosinophils Percent Auto 0.1 % (2-4); Hematocrit 36.3 % (36-46); Hemoglobin 12.2 g/dL (12.0-16.0); Lymphocytes Absolute Auto 1700 /uL (1100-4500); Lymphocytes Percent Auto 40.1 % (25-40); Mean Corpuscular HGB Conc 33.5 % (30-36); Mean Corpuscular Hemoglobin 27.8 PG (26-34); Mean Corpuscular Volume 83.1 fL (80-100); Monocytes Absolute Auto 300 /uL (0-900); Monocytes Percent Auto 7.7 % (3-14); Neutrophils Absolute Auto 2200 /uL (1500-7000); Platelet Count 115 X10^3/uL (150-400); Red Blood Cell Count 4.37 X10^6/uL (4.0-5.2); Red Cell Distribution Width 14.1 % (11.6-14.8); White Blood Cell Count 4.1 X10^3/uL (4.5-11.0)
[2021-06-28 09:30] LABS: BUN Creatinine Ratio 22.1 (6-22); Blood Urea Nitrogen 29 mg/dL (7-17); Calcium 9.5 mg/dL (8.4-10.2); Carbon Dioxide 27 mmol/L (22-32); Chloride 102 mmol/L (98-107); Glucose 91 mg/dL (80-110); HEMOLYSIS < 15 (0-50); Potassium 4.1 mmol/L (3.4-5.1); Sodium 138 mmol/L (137-145)
== END ==
PROVIDERS: PCP Internal Medicine; Visit Provider Internal Medicine
DX: N93.9 Abnormal uterine and vaginal bleeding, unspecified (principal)
CPT/HCPCS: 36415; 80048; 85025

== ENCOUNTER → 2021-07-05 08:13 | Outpatient (ROUT) | payer MEDICARE, MEDICAID, SELFPAY ==
[2020-05-06 19:03] VITALS: BMI 33.7
[2021-07-05 09:12] LABS: BUN Creatinine Ratio 17.1 (6-22); Blood Urea Nitrogen 29 mg/dL (7-17); Calcium 9.1 mg/dL (8.4-10.2); Carbon Dioxide 25 mmol/L (22-32); Chloride 105 mmol/L (98-107); Estimated Glomerular Filt Rate 29.6 mL/min (>60); Glucose 82 mg/dL (80-110); HEMOLYSIS 33 (0-50); Potassium 4.2 mmol/L (3.4-5.1); Sodium 137 mmol/L (137-145)
== END ==
PROVIDERS: PCP Internal Medicine; Visit Provider Nurse Practitioner Gerontology
DX: N18.9 Chronic kidney disease, unspecified (principal)
CPT/HCPCS: 36415; 80048

== ENCOUNTER → 2021-07-12 07:49 | Outpatient (ROUT) | payer MEDICARE, MEDICAID, SELFPAY ==
[2020-05-06 19:03] VITALS: BMI 33.7
[2021-07-12 08:52] LABS: BUN Creatinine Ratio 26.1 (6-22); Blood Urea Nitrogen 35 mg/dL (7-17); Calcium 9.7 mg/dL (8.4-10.2); Carbon Dioxide 30 mmol/L (22-32); Chloride 103 mmol/L (98-107); Glucose 95 mg/dL (80-110); HEMOLYSIS < 15 (0-50); Potassium 4.1 mmol/L (3.4-5.1); Sodium 139 mmol/L (137-145)
== END ==
PROVIDERS: PCP Internal Medicine; Visit Provider Internal Medicine
DX: N18.9 Chronic kidney disease, unspecified (principal)
CPT/HCPCS: 36415; 80048

== ENCOUNTER → 2021-07-19 08:27 | Outpatient (ROUT) | payer MEDICARE, MEDICAID, SELFPAY ==
[2020-05-06 19:03] VITALS: BMI 33.7
[2021-07-19 10:01] LABS: BUN Creatinine Ratio 23.3 (6-22); Blood Urea Nitrogen 31 mg/dL (7-17); Calcium 9.8 mg/dL (8.4-10.2); Carbon Dioxide 32 mmol/L (22-32); Chloride 101 mmol/L (98-107); Estimated Glomerular Filt Rate 39.3 mL/min (>60); Glucose 83 mg/dL (80-110); HEMOLYSIS < 15 (0-50); Potassium 3.8 mmol/L (3.4-5.1); Sodium 139 mmol/L (137-145)
== END ==
PROVIDERS: PCP Internal Medicine; Visit Provider Internal Medicine
DX: N18.9 Chronic kidney disease, unspecified (principal)
CPT/HCPCS: 36415; 80048

== ENCOUNTER → 2021-08-09 07:58 | Outpatient (ROUT) | payer MEDICARE, MEDICAID, SELFPAY ==
[2020-05-06 19:03] VITALS: BMI 33.7
[2021-08-09 09:03] LABS: BUN Creatinine Ratio 15.6 (6-22); Blood Urea Nitrogen 20 mg/dL (7-17); Calcium 9.7 mg/dL (8.4-10.2); Carbon Dioxide 31 mmol/L (22-32); Chloride 103 mmol/L (98-107); Estimated Glomerular Filt Rate 41.1 mL/min (>60); Glucose 91 mg/dL (80-110); HEMOLYSIS < 15 (0-50); Potassium 4.1 mmol/L (3.4-5.1); Sodium 139 mmol/L (137-145)
== END ==
PROVIDERS: PCP Internal Medicine; Visit Provider Internal Medicine
DX: N18.9 Chronic kidney disease, unspecified (principal)
CPT/HCPCS: 36415; 80048

== ENCOUNTER → 2021-08-25 18:46 | Outpatient (ROUT) | payer MEDICARE, MEDICAID, SELFPAY ==
[2020-05-06 19:03] VITALS: BMI 33.7
[2021-08-25 18:56] LABS: Appearance Urine UA CLOUDY; Bilirubin Urine UA NEGATIVE (NEGATIVE); Color Urine UA YELLOW; Glucose Urine UA NEGATIVE (Negative); Ketones Urine UA NEGATIVE (NEGATIVE); Leukocyte Esterase Urine UA NEGATIVE (NEGATIVE); Nitrite Urine UA NEGATIVE (Negative); Occult Blood Urine UA NEGATIVE (Negative); Protein Urine UA NEGATIVE (Negative); Specific Gravity Urine UA 1.025 (1.000-1.035); Urobilinogen Urine UA 0.2 E.U./dL (0.2)
[2021-08-25 19:00] LABS: pH Urine UA 5.5 (4.5-8.0)
[2021-08-25 19:06] LABS: Amorphous Sediment Urine 3+; RBC Urine None Seen (0-5/HPF); Squamous Epithelial Cell Urine 5-10 /HPF (0-5/HPF); WBC Urine 1-5/HPF (0-5/HPF)
[2021-08-25 19:07] LABS: Bacteria Urine Many (>30); Culture Indicated Urine Cult Not Indicated
== END ==
PROVIDERS: PCP Internal Medicine; Visit Provider Nurse Practitioner Gerontology
DX: R30.0 Dysuria (principal); R35.0 Frequency of micturition; R39.15 Urgency of urination
CPT/HCPCS: 81001

== ENCOUNTER → 2021-09-20 11:54 | Outpatient (ROUT) | payer MEDICARE, MEDICAID, SELFPAY ==
[2020-05-06 19:03] VITALS: BMI 33.7
[2021-09-20 12:04] LABS: Add Manual Diff / Slide Review NO; Basophils Absolute Auto 0 /uL (0-100); Basophils Percent Auto 0.1 % (0-2); Eosinophils Absolute Auto 0 /uL (0-450); Eosinophils Percent Auto 0.1 % (2-4); Hematocrit 36.5 % (36-46); Hemoglobin 12.2 g/dL (12.0-16.0); Lymphocytes Absolute Auto 1100 /uL (1100-4500); Lymphocytes Percent Auto 28.3 % (25-40); Mean Corpuscular HGB Conc 33.5 % (30-36); Mean Corpuscular Hemoglobin 27.6 PG (26-34); Mean Corpuscular Volume 82.5 fL (80-100); Monocytes Absolute Auto 300 /uL (0-900); Monocytes Percent Auto 7.6 % (3-14); Neutrophils Absolute Auto 2500 /uL (1500-7000); Neutrophils Percent Auto 63.9 % (50-75); Platelet Count 108 X10^3/uL (150-400); Red Blood Cell Count 4.42 X10^6/uL (4.0-5.2); Red Cell Distribution Width 14.6 % (11.6-14.8); White Blood Cell Count 3.8 X10^3/uL (4.5-11.0)
[2021-09-20 12:15] LABS: Blood Urea Nitrogen 27 mg/dL (7-17); Calcium 9.5 mg/dL (8.4-10.2); Carbon Dioxide 31 mmol/L (22-32); Chloride 103 mmol/L (98-107); Estimated Glomerular Filt Rate 36.5 mL/min (>60); Glucose 117 mg/dL (80-110); HEMOLYSIS < 15 (0-50); Potassium 4.1 mmol/L (3.4-5.1); Sodium 139 mmol/L (137-145)
== END ==
PROVIDERS: PCP Internal Medicine; Visit Provider Nurse Practitioner Gerontology
DX: N18.9 Chronic kidney disease, unspecified (principal); D64.9 Anemia, unspecified
CPT/HCPCS: 80048; 85025

== ENCOUNTER → 2021-11-04 13:10 | Outpatient (CLI) | payer MEDICARE, MEDICAID, SELFPAY ==
[2020-05-06 19:03] VITALS: BMI 33.7
--- NOTE | 2021-11-04 13:12 | DI.MG.S_ITS ---
BILATERAL DIGITAL SCREENING MAMMOGRAM 3D/2D WITH CAD: 11/04/2021 CLINICAL: Routine screening. Family history of breast cancer. Comparison is made to exams dated: 10/30/2018 ultrasound, 10/30/2018 mammogram, 11/06/2017 mammogram - [facility], and 08/26/2013 mammogram - [facility]. There are scattered fibroglandular elements in both breasts. Current study was also evaluated with a Computer Aided Detection (CAD) system. No significant masses, calcifications, or other findings are seen in either breast. There has been no significant interval change. IMPRESSION: NEGATIVE There is no mammographic evidence of malignancy. A 1 year screening mammogram is recommended. This exam was interpreted at Station ID: [id number]. NOTE: For mammograms, a report in lay terms will be sent to the patient. Approximately 15% of breast malignancies will not be visualized mammographically. In the management of a palpable breast mass, a negative mammogram must not discourage biopsy of a clinically suspicious lesion. Electronically Signed By: Shannan angel/amada:11/04/2021 14:22:25 letter sent: Normal Exam ACR BI-RADS Category 1: Negative [id number]
== END ==
PROVIDERS: PCP Internal Medicine; Referring Provider Internal Medicine; Visit Provider Internal Medicine
DX: Z12.31 Encounter for screening mammogram for malignant neoplasm of breast (principal); Z80.3 Family history of malignant neoplasm of breast
CPT/HCPCS: 77063; 77067

== ENCOUNTER → 2021-12-13 08:13 | Outpatient (ROUT) | payer MEDICARE, MEDICAID, SELFPAY ==
[2020-05-06 19:03] VITALS: BMI 33.7
[2021-12-13 08:55] LABS: BUN Creatinine Ratio 14.3 (6-22); Blood Urea Nitrogen 19 mg/dL (7-17); Calcium 9.2 mg/dL (8.4-10.2); Carbon Dioxide 31 mmol/L (22-32); Chloride 103 mmol/L (98-107); Estimated Glomerular Filt Rate 43 mL/min (>60); Glucose 93 mg/dL (80-110); HEMOLYSIS < 15 (0-50); Potassium 3.8 mmol/L (3.4-5.1); Sodium 138 mmol/L (137-145)
== END ==
PROVIDERS: PCP Internal Medicine; Visit Provider Nurse Practitioner Gerontology
DX: N18.9 Chronic kidney disease, unspecified (principal)
CPT/HCPCS: 36415; 80048

== ENCOUNTER → 2022-01-10 08:26 | Outpatient (ROUT) | payer MEDICARE, MEDICAID, SELFPAY ==
[2020-05-06 19:03] VITALS: BMI 33.7
[2022-01-10 10:56] LABS: Add Manual Diff / Slide Review NO; Basophils Absolute Auto 0 /uL (0-100); Basophils Percent Auto 0.3 % (0-2); Eosinophils Absolute Auto 0 /uL (0-450); Eosinophils Percent Auto 0.1 % (2-4); Hematocrit 37.1 % (36-46); Hemoglobin 12.3 g/dL (12.0-16.0); Lymphocytes Absolute Auto 1500 /uL (1100-4500); Lymphocytes Percent Auto 38.6 % (25-40); Mean Corpuscular HGB Conc 33.1 % (30-36); Mean Corpuscular Hemoglobin 27.2 PG (26-34); Monocytes Absolute Auto 300 /uL (0-900); Monocytes Percent Auto 8.3 % (3-14); Neutrophils Absolute Auto 2000 /uL (1500-7000); Neutrophils Percent Auto 52.7 % (50-75); Platelet Count 100 X10^3/uL (150-400); Red Blood Cell Count 4.52 X10^6/uL (4.0-5.2); White Blood Cell Count 3.9 X10^3/uL (4.5-11.0)
[2022-01-10 11:13] LABS: BUN Creatinine Ratio 22.5 (6-22); Blood Urea Nitrogen 29 mg/dL (7-17); Calcium 9.4 mg/dL (8.4-10.2); Carbon Dioxide 28 mmol/L (22-32); Chloride 102 mmol/L (98-107); Estimated Glomerular Filt Rate 44 mL/min (>60); Glucose 81 mg/dL (80-110); HEMOLYSIS < 15 (0-50); Potassium 3.9 mmol/L (3.4-5.1); Sodium 138 mmol/L (137-145)
== END ==
PROVIDERS: PCP Internal Medicine; Visit Provider Nurse Practitioner Family
DX: Z79.899 Other long term (current) drug therapy (principal); N18.9 Chronic kidney disease, unspecified
CPT/HCPCS: 36415; 80048; 85025

== ENCOUNTER → 2022-02-23 14:31 | Outpatient (CLI) | payer MEDICARE, MEDICAID, SELFPAY ==
[2020-05-06 19:03] VITALS: BMI 33.7
--- NOTE | 2022-02-23 14:32 | DI.US.S_ITS ---
PROCEDURE: US PERIPH VENOUS UP EXTREM LT INDICATIONS: LEFT AC FOSSA LUMP TECHNIQUE: Real-time imaging, as well as color and pulse Doppler interrogation, was performed of the left upper extremity deep veins from the inferior neck to the antecubital fossa. COMPARISON: None. FINDINGS: The internal jugular vein, visualized portions of the subclavian vein, axillary, and brachial veins are free of intraluminal thrombus. Where physically possible, the veins are normally compressible. Color and pulse Doppler demonstrate normal intraluminal flow, with expected phasicity and pulsatility. Additional scanning of the cephalic and basilic veins of the superficial system demonstrate normal compressibility, without thrombus. At the site of clinical concern involving the antecubital fossa, no ultrasound abnormalities are seen. IMPRESSION: Negative for deep venous thrombosis. No ultrasound abnormalities can be seen at the site of clinical concern involving the antecubital fossa. Dictated by: Oliverio Rodrigues M.D. on 02/23/2022 at 15:17 Approved by: Oliverio Rodrigues M.D. on 02/23/2022 at 15:18
== END ==
PROVIDERS: PCP Internal Medicine; Referring Provider Nurse Practitioner Family; Visit Provider Nurse Practitioner Family
DX: R22.32 Localized swelling, mass and lump, left upper limb (principal)
CPT/HCPCS: 93971

== ENCOUNTER → 2022-04-11 11:24 | Outpatient (ROUT) | payer MEDICARE, MEDICAID, SELFPAY ==
[2020-05-06 19:03] VITALS: BMI 33.7
[2022-04-11 11:38] LABS: Add Manual Diff / Slide Review NO; Basophils Absolute Auto 0 /uL (0-100); Basophils Percent Auto 0.3 % (0-2); Eosinophils Absolute Auto 0 /uL (0-450); Hemoglobin 12.6 g/dL (12.0-16.0); Lymphocytes Absolute Auto 1200 /uL (1100-4500); Lymphocytes Percent Auto 30.4 % (25-40); Mean Corpuscular HGB Conc 33.2 % (30-36); Mean Corpuscular Hemoglobin 27.3 PG (26-34); Mean Corpuscular Volume 82.2 fL (80-100); Monocytes Absolute Auto 400 /uL (0-900); Monocytes Percent Auto 8.9 % (3-14); Neutrophils Absolute Auto 2400 /uL (1500-7000); Neutrophils Percent Auto 60.4 % (50-75); Platelet Count 120 X10^3/uL (150-400); Red Blood Cell Count 4.62 X10^6/uL (4.0-5.2); Red Cell Distribution Width 14.7 % (11.6-14.8)
[2022-04-11 12:58] LABS: BUN Creatinine Ratio 19.2 (6-22); Blood Urea Nitrogen 25 mg/dL (7-17); Calcium 9.2 mg/dL (8.4-10.2); Carbon Dioxide 30 mmol/L (22-32); Chloride 103 mmol/L (98-107); Estimated Glomerular Filt Rate 44 mL/min (>60); Glucose 84 mg/dL (80-110); HEMOLYSIS < 15 (0-50); Potassium 4.1 mmol/L (3.4-5.1); Sodium 138 mmol/L (137-145)
== END ==
PROVIDERS: PCP Internal Medicine; Visit Provider Nurse Practitioner Gerontology
DX: I10 Essential (primary) hypertension (principal)
CPT/HCPCS: 80048; 85025

== ENCOUNTER → 2022-06-23 11:39 | Outpatient (CLI) | payer MEDICARE, MEDICAID, SELFPAY ==
[2020-05-06 19:03] VITALS: BMI 33.7
--- NOTE | 2022-06-23 | DI.CT.S_ITS ---
PROCEDURE: CT UE RT WO CON INDICATIONS: avascular necrosis of right humeral head TECHNIQUE: Noncontrast 1-1.5 mm thick sections acquired from the acromioclavicular joint to the inferior scapula, with coronal and sagittal reformatting. COMPARISON: [facility], CR, XR SHOULDER 2+ VIEWS RIGHT, 01/16/2022, 9:17. [facility], CR, XR SHOULDER 2+ VIEWS RIGHT, 06/16/2022, 11:01. [facility], CT, CT UE RT WO CON, 04/29/2020, 10:20. FINDINGS: Image quality: Excellent. Bones: Again noted is prior internal fixation of proximal humerus with lateral fixation plate and multiple screws in place. Comminuted proximal humeral fracture is again seen with significantly increased distance between lateral cortex of proximal humerus and fixation plate concerning for hardware loosening. Severe deformity of humeral head is seen with extensive osteolysis along medial aspect of humeral head and chronic remodeling at glenohumeral joint. No acute fracture or dislocation. Miny-er-wtjkxikz acromioclavicular joint osteoarthritic changes are seen with joint space narrowing and subchondral sclerosis. No suspicious intraosseous lesion. Visualized right upper to mid ribs are intact. Soft tissues: There is no significant joint effusion. No calcified intra-articular loose bodies. No abnormal soft tissue calcifications are seen. There is no definite full-thickness rotator cuff tendon rupture. No significant muscle atrophy is seen on sagittal views. No axillary lymphadenopathy is seen. Visualized right upper lung field is clear. IMPRESSION: 1. Prior internal fixation of proximal humerus with surgical hardware in place. Chronic appearing comminuted fracture involving proximal humerus with increased distance between surgical hardware and lateral cortex of proximal humeral shaft concerning for hardware loosening. 2. Marked deformity and osteolysis involving humeral head, chronic avascular necrosis cannot be excluded. Severe glenohumeral joint osteoarthritis with remodeling. Fbzh-sn-wlikmmtn acromioclavicular joint osteoarthritis. 3. No significant joint effusion. No gross full-thickness rotator cuff tendon rupture. No significant muscle atrophy is. No abnormal soft tissue calcifications. Dictated by: Sony Holland M.D. on 06/23/2022 at 14:30 Approved by: Sony Holland M.D. on 06/23/2022 at 14:49
== END ==
PROVIDERS: PCP Internal Medicine; Referring Provider Orthopaedic Surgery; Visit Provider Orthopaedic Surgery
DX: M87.021 Idiopathic aseptic necrosis of right humerus (principal); M19.011 Primary osteoarthritis, right shoulder; S42.201S Unspecified fracture of upper end of right humerus, sequela; X58.XXXS Exposure to other specified factors, sequela
CPT/HCPCS: 73200

== ENCOUNTER → 2022-07-27 14:35 | Outpatient (CLI) | payer MEDICARE, MEDICAID, SELFPAY ==
[2020-05-06 19:03] VITALS: BMI 33.7
[2022-07-27 16:38] LABS: Appearance Urine UA CLEAR; Bilirubin Urine UA NEGATIVE (NEGATIVE); Color Urine UA YELLOW; Glucose Urine UA NEGATIVE (Negative); Ketones Urine UA NEGATIVE (NEGATIVE); Leukocyte Esterase Urine UA NEGATIVE (NEGATIVE); Nitrite Urine UA NEGATIVE (Negative); Occult Blood Urine UA NEGATIVE (Negative); Protein Urine UA TRACE (Negative); Urobilinogen Urine UA 0.2 E.U./dL (0.2)
[2022-07-27 16:40] LABS: pH Urine UA 5.5 (4.5-8.0)
[2022-07-27 16:45] LABS: Add Manual Diff / Slide Review NO; Basophils Absolute Auto 0 /uL (0-100); Basophils Percent Auto 0.2 % (0-2); Eosinophils Absolute Auto 0 /uL (0-450); Eosinophils Percent Auto 0.1 % (2-4); Hematocrit 38.5 % (36-46); Hemoglobin 12.6 g/dL (12.0-16.0); Lymphocytes Absolute Auto 1200 /uL (1100-4500); Lymphocytes Percent Auto 32.6 % (25-40); Mean Corpuscular HGB Conc 32.8 % (30-36); Mean Corpuscular Hemoglobin 27.6 PG (26-34); Mean Corpuscular Volume 84.2 fL (80-100); Monocytes Absolute Auto 400 /uL (0-900); Monocytes Percent Auto 11.4 % (3-14); Neutrophils Absolute Auto 2100 /uL (1500-7000); Neutrophils Percent Auto 55.7 % (50-75); Platelet Count 107 X10^3/uL (150-400); Red Blood Cell Count 4.57 X10^6/uL (4.0-5.2); Red Cell Distribution Width 14.8 % (11.6-14.8); White Blood Cell Count 3.8 X10^3/uL (4.5-11.0)
[2022-07-27 16:46] LABS: Bacteria Urine None Seen; Culture Indicated Urine Cult Not Indicated; RBC Urine None Seen (0-5/HPF); Transitional Epi Cells Urine 1-5/HPF (0-5/HPF); WBC Urine None Seen (0-5/HPF)
[2022-07-27 17:21] LABS: Erythrocyte Sedimentation Rate 13 MM/HR (0-20)
[2022-07-27 17:27] LABS: BUN Creatinine Ratio 23.8 (6-22); Blood Urea Nitrogen 30 mg/dL (7-17); Calcium 9.3 mg/dL (8.4-10.2); Carbon Dioxide 30 mmol/L (22-32); Chloride 99 mmol/L (98-107); Estimated Glomerular Filt Rate 45 mL/min (>60); Glucose 79 mg/dL (80-110); HEMOLYSIS < 15 (0-50); Potassium 4.1 mmol/L (3.4-5.1); Sodium 139 mmol/L (137-145)
== END ==
PROVIDERS: PCP Internal Medicine; Referring Provider Orthopaedic Surgery; Visit Provider Orthopaedic Surgery
DX: Z01.818 Encounter for other preprocedural examination (principal); N39.0 Urinary tract infection, site not specified
CPT/HCPCS: 80048; 81001; 85025; 85651; 93005

== ENCOUNTER → 2022-08-03 12:29 | Outpatient (CLI) | payer MEDICARE, MEDICAID, SELFPAY ==
[2020-05-06 19:03] VITALS: BMI 33.7
== END ==
PROVIDERS: PCP Internal Medicine; Referring Provider Internal Medicine; Visit Provider Internal Medicine
DX: R94.31 Abnormal electrocardiogram [ECG] [EKG] (principal)
CPT/HCPCS: 93005

== ENCOUNTER → 2022-09-07 22:47 | Outpatient (ROUT) | payer MEDICARE, MEDICAID, SELFPAY ==
[2020-05-06 19:03] VITALS: BMI 33.7
[2022-09-07 22:52] LABS: Appearance Urine UA CLOUDY; Bilirubin Urine UA NEGATIVE (NEGATIVE); Color Urine UA YELLOW; Glucose Urine UA NEGATIVE (Negative); Ketones Urine UA NEGATIVE (NEGATIVE); Leukocyte Esterase Urine UA NEGATIVE (NEGATIVE); Nitrite Urine UA NEGATIVE (Negative); Occult Blood Urine UA NEGATIVE (Negative); Protein Urine UA NEGATIVE (Negative); Specific Gravity Urine UA 1.025 (1.000-1.035)
[2022-09-07 22:59] LABS: Bacteria Urine Many (>30); RBC Urine None Seen (0-5/HPF); Squamous Epithelial Cell Urine 10-30 /HPF (0-5/HPF); WBC Urine 0-1/HPF (0-5/HPF)
[2022-09-07 23:02] LABS: Culture Indicated Urine Cult Not Indicated
== END ==
PROVIDERS: PCP Internal Medicine; Visit Provider Nurse Practitioner Gerontology
DX: R45.1 Restlessness and agitation (principal)
CPT/HCPCS: 81001

== ENCOUNTER → 2022-09-08 11:18 | Outpatient (ROUT) | payer MEDICARE, MEDICAID, SELFPAY ==
[2020-05-06 19:03] VITALS: BMI 33.7
[2022-09-08 11:35] LABS: Add Manual Diff / Slide Review NO; Basophils Absolute Auto 0 /uL (0-100); Basophils Percent Auto 0.8 % (0-2); Eosinophils Absolute Auto 0 /uL (0-450); Eosinophils Percent Auto 0.1 % (2-4); Hematocrit 38.9 % (36-46); Hemoglobin 12.9 g/dL (12.0-16.0); Lymphocytes Absolute Auto 1500 /uL (1100-4500); Lymphocytes Percent Auto 29.4 % (25-40); Mean Corpuscular HGB Conc 33.3 % (30-36); Mean Corpuscular Hemoglobin 28.2 PG (26-34); Mean Corpuscular Volume 84.8 fL (80-100); Monocytes Absolute Auto 500 /uL (0-900); Monocytes Percent Auto 9.1 % (3-14); Neutrophils Absolute Auto 3100 /uL (1500-7000); Neutrophils Percent Auto 60.6 % (50-75); Platelet Count 103 X10^3/uL (150-400); Red Blood Cell Count 4.58 X10^6/uL (4.0-5.2); Red Cell Distribution Width 14.6 % (11.6-14.8); White Blood Cell Count 5.1 X10^3/uL (4.5-11.0)
[2022-09-08 11:39] LABS: Alanine Aminotransferase 23 IU/L (<35); Albumin 4.2 g/dL (3.5-5.0); Albumin Globulin Ratio 1.3 (1.0-2.8); Alkaline Phosphatase 66 U/L (38-126); Aspartate Aminotransferase 24 IU/L (14-36); BUN Creatinine Ratio 20.4 (6-22); Bilirubin Total 0.5 mg/dL (0.2-1.3); Blood Urea Nitrogen 23 mg/dL (7-17); Calcium 9.3 mg/dL (8.4-10.2); Carbon Dioxide 25 mmol/L (22-32); Chloride 100 mmol/L (98-107); Estimated Glomerular Filt Rate 52 mL/min (>60); Globulin 3.2 g/dL (1.7-4.1); Glucose 97 mg/dL (80-110); HEMOLYSIS 30 (0-50); Potassium 3.8 mmol/L (3.4-5.1); Sodium 138 mmol/L (137-145); Total Protein 7.4 g/dL (6.3-8.2)
== END ==
PROVIDERS: PCP Internal Medicine; Visit Provider Nurse Practitioner Gerontology
DX: R45.1 Restlessness and agitation (principal)
CPT/HCPCS: 80053; 85025

== ENCOUNTER 2022-09-21 09:05 | Inpatient (IN) | payer MEDICARE, MEDICAID, SELFPAY ==
[2020-05-06 19:03] VITALS: BMI 33.7
[2022-09-14 08:43] VITALS: BMI 32.2
[2022-09-21] VITALS (13 sets, daily range): BP systolic 124–147; BP diastolic 67–97; PULSE 66–78; RESP 14–18; TEMP 35.9–37; O2SAT 91–96; BMI 32.2
--- NOTE | 2022-09-21 | DI.RAD.S_ITS ---
PROCEDURE: XR SHOULDER RT 1V INDICATIONS: INTRA-OP REVERSE TOTAL SHOULDER TECHNIQUE: 2 views of the shoulder were acquired. COMPARISON: [facility] [place], CR, XR SHOULDER 2+ VIEWS RIGHT, 06/16/2022, 11:01. [facility], CR, XR SHOULDER RT MIN 2V, 09/21/2022, 14:49. FINDINGS: Intraoperative changes are noted related to total shoulder arthroplasty. IMPRESSION: Fluoroscopy for total shoulder arthroplasty. Dictated by: Lizzy Grajeda M.D. on 09/21/2022 at 16:11 Approved by: Lizzy Grajeda M.D. on 09/21/2022 at 16:13
--- NOTE | 2022-09-21 06:00 | DI.RAD.S_ITS ---
PROCEDURE: XR SHOULDER RT MIN 2V INDICATIONS: TOTAL RIGHT RIGHT POST OP TECHNIQUE: Right views of the shoulder were acquired. COMPARISON: [facility], , XR SHOULDER RT 1V, 09/21/2022, 13:36. FINDINGS: Bones: Postoperative changes of total right shoulder replacement. Soft tissues: No suspicious soft tissue calcifications. IMPRESSION: Postoperative changes of total right shoulder replacement without complication. Dictated by: John Arellano M.D. on 09/21/2022 at 16:07 Approved by: John Arellano M.D. on 09/21/2022 at 16:08
[2022-09-21] MEDS: LACTATED RINGERS 1,000 ML 42 ML IV ×2 (09:55→13:04)
[2022-09-21 09:56] LABS: COVID19 -Nasal RAPID Negative (Negative)
--- NOTE | 2022-09-21 10:15 | PM.PREOP ---
Pre-operative Note Interval Note History & Physical reviewed/Exam performed by Physician: Yes Changes to H&P: No
--- NOTE | 2022-09-21 10:16 | PM.OP.1 ---
Operative Date/Time/Diagnoses Date of procedure: 09/21/22 Time of procedure: 14:50 Pre-op diagnosis: Right shoulder avascular necrosis status post operative treatment proximal humerus fracture Post-op diagnosis: same Procedure & Clinicians Procedure: 1. Revision reverse total shoulder arthroplasty 2. Removal of deep hardware 3. Biceps tenodesis. Same procedure as scheduled: Yes Indications: This is a 72-year-old female who has avascular necrosis of her right proximal humerus after ORIF of a proximal humerus fracture in 2019. At this point she can not move her arm due to significant pain and stiffness. Symptoms have been present for years, insidious onset. Patient has failed conservative therapy including injections, physical therapy, anti-inflammatories and activity modification. After extensive discussion in clinic, they wished to go forward with surgery. Risks and benefits were described including the risk of infection, bleeding, damage to internal structures including nerves. We also discussed the risk of failure of surgery and the need for revision surgery as well as the risk of anesthesia. The patient expressed understanding with these risks and wished to go forward with surgery. Surgeon: Domenic Valdez Maid Cleaning Cooking: Lashonda Giraldo Anesthesia Type: General Operative Notes Findings: Osteoarthritis of the glenoid and avascular necrosis of the humeral head retained hardware on the proximal humerus as noted on preoperative imaging and under direct visualization Closure Type: primary Specimen(s): none sent Prosthetic devices, grafts, tissues, transplants, or devices: Tornier standard base plate, 25 mm 36 mm standard glenosphere 1+ perform humeral stem long Estimated Blood Loss (mL): 50 Blood products transfused: none Procedure in detail: Patient was seen in the preoperative holding unit. The correct right shoulder was identified and marked with my initials. Again we discussed the risks and benefits of surgery and they wished to go forward with surgery. The patient was brought back to the operating room and placed supine on the operating table. He underwent smooth endotracheal intubation. All prominences were padded and they were placed into the beach chair position. Intravenous antibiotics were given. The right shoulder was then prepped with the standard sterile preparation and draping. A time-out was then performed in my initials were again identified on the correct shoulder. 1 g of IV tranexamic acid was given. A standard deltopectoral incision was made. Skin flaps were made. Sharp dissection was made along the deltoid, subacromial and subcoracoid space to release adhesions. At this point we encountered the plate (arthrex proximal humerus plate (all screws were able to be removed. The distal 2 screws had their tips break in the far cortex however they were not loose. The conjoined tendon was identified and the axillary nerve was palpated and continuous using the tug test. It was protected throughout the remainder of the case. A brown retractor was placed underneath the deltoid muscle and a darach retractor underneath the conjoint tendon. The anterior circumflex artery and associated veins on the lower border of the subscapularis were identified and tied off using 0-Vicryl. The biceps tendon was identified in the bicipital groove. This was released from its sheath, and taken from its origin on the glenoid and tied into the pectoralis tendon for a solid tenodesis. We then began a subscapularis peel. The subscapularis was tagged with an Ethibond suture. A 360 degree circumferential release of the subscapularis was performed with protection of the axillary nerve. The coracohumeral ligament was released at the base of the coracoid. The coracoacromial ligament was left intact. The shoulder was then dislocated. The rotator cuff was noted to be insufficient. An intramedullary guide was used set at version of 30?. Using an oscillating saw a very conservative humeral head cut was made. Impaction reamers were reamed up to a size 1+ perform stem (135?). Attention was then turned to the glenoid. After retracting the humeral head posteriorly a circumferential release was performed of the capsule with protection of the axillary nerve. The labrum was then released starting at the biceps anchor and going around the rim a small amount of triceps was released from the inferior glenoid. A center guide pin was then placed using the guide, followed by Reamer. After adequate cartilage was removed the center drill hole was drilled and measured. The base plate was then implanted and screwed into place. The superior drill hole was drilled and filled in a nonlocking fashion, followed by the inferior and anterior holes in locking fashion. A [36 standard] glenosphere was then selected and screwed into place onto the base plate. Turning back to the humerus, the humeral head was delivered and trialed with a 10 degree 0 thickness polyethylene. The arm was taken through range of motion and this was felt to be stable. The trial was then removed and a dilute Betadine wash was then performed with 1 L of sterile saline. Before placing the final implant, drill holes were made in the bicipital groove for the subscapularis repair, and sutures were passed through the drill holes. The final stem with high offset tray was then impacted into the humerus. The shoulder was then reduced and again brought through range of motion and was felt to be stable. The interval was then closed using 0-Vicryl. The subscapularis was then repaired using a modified racking hitch with niece loupes. The deltopectoral interval was then closed with #2 Ethibond. The skin was closed with 2-0 PDS and antonio followed by Aquacel dressing. Patient was awoken from anesthesia and brought back to the postoperative recovery unit without issue. They were placed into a sling. Assisting participation: This operation could not have been safely performed (without compromising the technical results or length of the procedure) without the assistance of a skilled employment legal assistant. The employment legal assistant was medically necessary for proper positioning, retraction and manipulation of instruments, proper exposure, graft prep, and manipulation of tissue. Complications: none Post-operative Condition: stable Disposition: PACU Plan for aftercare: Postoperative instructions: Sling to remain on for 6 weeks. No external rotation past neutral for 6 weeks. Okay for him to come off her shower. Okay to shower over the Aquacel dressing. If any water gets underneath the dressing, remove the dressing. First postoperative visit in 2 weeks.
[2022-09-21] MEDS: CEFAZOLIN 2 GM/100 ML PREMIX 100 ML IV (11:15)
[2022-09-21] MEDS: TRANEXAMIC ACID 1,000 MG VIAL 1000 MG INJ ×2 (11:35→14:19)
--- NOTE | 2022-09-21 11:44 | SUR.OPER ---
Beach chair on padded OR bed WITH SKYTRON HEAD POSITIONER. Head on POSITIONER AND SECURED WITH BEIGE VELCRO STRAPS FROM PACK. Non-operative arm SECURED WITH DRAW SHEET AND TAPE ON padded arm board WITH ROLLED TOWEL. Pillow under knees. Safety belt at thigh. Cloth tape over blanket over lower legs.
--- NOTE | 2022-09-21 14:48 | SUR.PHASEI ---
Dr Valdez wanting to send patient back to assisted living facility s/p shoulder surgery. This nurse called [facility] and was informed that there is no nursing staff available from [phone] to [phone] and that patient is a maximum-assist patient for care. Patient is non-ambulatory per BELEM Calvo, nursing staff and has been wheelchair bound for approximately two years now. Advised Dr Valdez that patient would need to be admitted due to complexities of post-op care and co-morbidities, and lack of nursing staff at facility.
--- NOTE | 2022-09-21 15:28 | SUR.PHASEI ---
to 219, all belongings in room. talkative. denies pain
[2022-09-21] MEDS: LACTATED RINGERS 1,000 ML 120 ML IV (16:37)
[2022-09-21] MEDS: CEFAZOLIN VIAL 1 GM in SODIUM CHLORIDE 0.9% 100 ML IV (18:06)
[2022-09-21] MEDS: OXYCODONE IR 5 MG TABLET PO (18:16)
[2022-09-21] MEDS: ASPIRIN EC 81 MG TABLET PO (22:36)
[2022-09-21] MEDS: DOCUSATE 100 MG CAPSULE PO (22:51)
[2022-09-22] MEDS: CEFAZOLIN VIAL 1 GM in SODIUM CHLORIDE 0.9% 100 ML IV (03:18)
[2022-09-22 04:32] LABS: Hematocrit 31.7 % (36-46); Hemoglobin 10.8 g/dL (12.0-16.0); Mean Corpuscular Hemoglobin 28.7 PG (26-34); Mean Corpuscular Volume 84.3 fL (80-100); Platelet Count 90 X10^3/uL (150-400); Red Blood Cell Count 3.76 X10^6/uL (4.0-5.2); Red Cell Distribution Width 14.3 % (11.6-14.8)
--- NOTE | 2022-09-22 06:32 | PC.NURSE ---
I agree with Esme RNs assessment, documentations, and interventions.
--- NOTE | 2022-09-22 07:50 | PM.DS.1 ---
History of Present Illness History of Present Illness Date Patient Seen: 09/22/22 Time Patient Seen: 07:51 Chief complaint: INPT Narrative: Operative Date/Time/Diagnoses Date of procedure: 09/21/22 Time of procedure: 14:50 Pre-op diagnosis: Right shoulder avascular necrosis status post operative treatment proximal humerus fracture Post-op diagnosis: same Procedure & Clinicians Procedure: 1.? Revision reverse total shoulder arthroplasty 2. Removal of deep hardware 3. Biceps tenodesis.? Same procedure as scheduled: Yes Indications: This is a 72-year-old female who has avascular necrosis of her right proximal humerus after ORIF of a proximal humerus fracture in 2019.? At this point she can not move her arm due to significant pain and stiffness.? Symptoms have been present for years, insidious onset.? Patient has failed conservative therapy including injections, physical therapy, anti-inflammatories and activity modification.? After extensive discussion in clinic, they wished to go forward with surgery.? Risks and benefits were described including the risk of infection, bleeding, damage to internal structures including nerves.? We also discussed the risk of failure of surgery and the need for revision surgery as well as the risk of anesthesia.? The patient expressed understanding with these risks and wished to go forward with surgery. Surgeon: Domenic Valdez Balance Sheet Analyst: Lashonda Giraldo Anesthesia Type: General Operative Notes Findings: Osteoarthritis of the glenoid and avascular necrosis of the humeral head retained hardware on the proximal humerus as noted on preoperative imaging and under direct visualization Closure Type: primary Specimen(s): none sent Prosthetic devices, grafts, tissues, transplants, or devices: Tornier standard base plate, 25 mm 36 mm standard glenosphere 1+ perform humeral stem long Estimated Blood Loss (mL): 50 Blood products transfused: none Discharge Providers Provider Date of admission: 09/21/22 09:05 Discharge Date: 09/22/22 Primary care physician: Amina Merida MD Consults: 09/21/22 06:00 Consult to Anesthesiology Routine Comment: Consulting Provider: Anesthesiologist Reason for consultation: Regional block for post operative pain control 09/21/22 15:57 Consult to Discharge Planning Routine Comment: Consult to Physical Therapy Evaluate & Treat Comment: Physician Instructions: Evaluate and Treat Discharge provider: Brunilda Duke PA-C Summary Hospital Course Discharge Diagnosis: Right shoulder avascular necrosis status post operative treatment proximal humerus fracture, s/p removal of right shoulder deep hardware and right reverse total shoulder arthroplasty Hospital Course: Ms Montero's hospital course was unremarkable. On the morning of POD# 1 she reported no pain. She lives at [facility] and felt ready to return there. However, nursing reported she required 3-person assist to get out of bed last night and required in-and-out catheterization in order to urinate. Denies N/V. Would like hydrocodone instead of oxycodone for discharge. Exam Vital Signs (past 8 hours): Oxygen Delivery Method Nasal Cannula Oxygen Flow Rate 0 Narrative Exam Narrative: Sling in place. 5/5 manager performance improvement strength, sensation intact throughout RUE. Aquacel dressing CDI. Objective Labs 09/22/22 04:21 Labs: Laboratory Results - last 24 hr 23 09/22/22 09:32 04:21 WBC 6.0 RBC 3.76 L Hgb 10.8 L Hct 31.7 L MCV 84.3 MCH 28.7 MCHC 34.0 RDW 14.3 Plt Count 90 L SARS-CoV-2 (PCR) Negative [facility] Medical History (Updated 09/14/22 @ 08:55 by Carine Almeida RN) Closed right humeral fracture Depression Hepatitis C HLD (hyperlipidemia) Hx of substance abuse Hypertension Narcolepsy and cataplexy Obesity (BMI 30-39.9) Obstructive sleep apnea of adult Stroke Surgical History (Updated 09/22/22 @ 08:01 by Brunilda Duke PA-C) History of section (1979) History of open reduction and internal fixation (ORIF) procedure (05/06/20) History of surgery on upper extremity (1985) Family History Mother Cancer Social History marital status: unmarried,single number of children: 3 household members: none lives independently: No caregiver/support person: Yes housing: assisted living facility pets and animals: No Smoking Status: Current every day smoker second hand exposure: Yes alcohol intake: former substance use type: marijuana caffeine: Yes (15-20 20-oz cups daily) Discharge Assessment & Plan Assessment and Plan Assessment: Right shoulder avascular necrosis status post operative treatment proximal humerus fracture, s/p removal of right shoulder deep hardware and right reverse total shoulder arthroplasty. Plan of Treatment: Surgery should not interfere w/ pts baseline mobility, and she should be able to discharge back to facility. However, if PT feels differently after evaluation, she may require additional inpatient days. Will plan on discharge later today pending work w/ PT. Follow up as scheduled in 2 weeks, ASA for VTE prophylaxis, multimodal pain control will include hydrocodone per pts request. Discharge Plan Discharge Plan Patient Disposition: Assisted Living Transfer to: [facility] Discharge orders & Medications Discharge Orders: Discharge (Order); Ordered 09/22/22 Ordered By: Brunilda Duke Prescriptions: New aspirin 81 mg Tablet,Delayed Release (Dr/Ec) 81 mg PO BID Qty: 60 0RF docusate sodium 100 mg Capsule 100 mg PO BID PRN (Reason: constipation) Qty: 60 1RF hydrocodone-acetaminophen 5-325 mg Tablet 1 tab PO Q4-6H PRN (Reason: Pain, Moderate (4-6)) Qty: 40 0RF Continued aspirin 81 mg Tablet,Chewable 81 mg PO DAILY ondansetron 4 mg tablet,disintegrating 4 mg PO Q8H PRN (Reason: nausea and vomiting) Qty: 10 0RF methylphenidate HCl [Ritalin] 10 mg Tablet 10 mg PO BID hydrochlorothiazide 12.5 mg Tablet 12.5 mg PO QAM Biofreeze (menthol) 4 % Gel 1 applic TOPICAL BID PRN (Reason: Pain) (DME) platform walker Qty: 1 0RF Rx Instructions: please dispense one platform walker s/p ORIF of right humeral fracture, expected length of need 3 months hydroxyzine pamoate [Vistaril] 25 mg capsule 25 mg PO BID atorvastatin 20 mg tablet 20 mg PO DAILY venlafaxine 75 mg tablet 300 mg PO SEEINSTR Label Comments: 300mg qam, 37.5mg qpm atenolol 25 mg tablet 25 mg PO DAILY acetaminophen 650 mg tablet extended release 650 mg PO TID Discontinued hydrocodone-acetaminophen 5-325 mg tablet 1 tab PO TID Follow up/Referrals: Domenic Valdez MD [Physician] - As previously scheduled (Follow up w/ Marcelle Giraldo PA-C, on 10/02/2022 @ 4:00 pm at [facility] office in [place].) Amina Merida MD [Primary Care Provider] - Diet/Activity/Treatments Diet: Diet as Tolerated Activity: Leave sling in place at most times, including while sleeping, for 6 weeks. May have off to shower. No external rotation of right arm past neutral x 6 weeks. Cold/Heat Therapy: Ice to shoulder as needed for pain. Skin/Wound/Dressing Care Report to your healthcare provider any signs of infection, such as:: chills, fever, night sweats, unusual drainage and unusual redness Dressing: Keep dressing clean, dry, and intact until 2 week postoperative follow up with orthopedics. May shower. If dressing gets wet, please call our office for dressing change. [facility] Rehab type: Physical therapy and Occupational therapy Visit Report/Discharge Packet Instructions: How to Use a Sling, DI for Constipation, How to Prevent Falls, DI for Prescription Opioid Use, DI for Shoulder Replacement Stand Alone Forms: Patient Portal/API, Stroke Signs & Symptoms, Surgery Discharge Discharge Data Primary Care Provider: Amina Merida
[2022-09-22 07:53] VITALS: BP 108/59; PULSE 64; RESP 18; TEMP 36.4; O2SAT 92
--- NOTE | 2022-09-22 09:19 | CM.DANOTE ---
Addendum entered by Norma Allred R.N. 09/22/22 15:39: Spoke to Olesya, she had submitted auth at 10:30, still pending. She will call with updates. Addendum entered by Norma Allred R.N. 09/22/22 12:59: Called [facility] back, left a message with Joy Pinon in admissions. Then, called extension [phone], spoke to Vijay, who is the exploration manager. She indicated, she has been working the floor due to staffing. She is familiar with this patient. Stated, usually she can get around in her wheel-chair, goes outside to smoke, but normally is a one person. Asked her about mobility, if is a two person transfer, why this would be an issue, since they do have max assist individuals there. She is concerned that they will not have enough staff to meet her needs if she were hoier/max assist. Mentioned voiding, as they can't do in and out caths there. Let her know that Olesya at [facility] is reviewing to see if she can get an insurance auth, but at this time, is unknown if they will auth her for an elective surgery. Vijay did indicate that they can accept patient over the weekend, even if she needs a parisi, but hopeful that she can transfer better. She was surprised that patient is a max assist, let her know that sometimes, post surgery, and post anesthesia along with pain, can affect patient's mobility. If [facility] is unable to get auth, most likely will return to [facility]. Addendum entered by Norma Allred R.N. 09/22/22 10:36: It is noted that patient has history of narcolepsy. P.T. did work with patient, recommending skilled. Did speak to Olesya at [facility], and indicated, she can attempt to submit auth, but since it's elective, may not cover her. Have a message out to the [facility] nurse. Just called again and left another message indicating that patient may need to return to their facility, should her insurance not auth her for elective surgery. Patient may need to be a max assist there, or hoier, undetermined at this time. If no response back from the facility withing the next few hours, will leave a message with administrator of home health as well. Olesya will also let this DC Business Sales Consultant know if she gets auth, she is reviewing P.T. note at this time. Original Note: DCP: Case received, EMR reviewed. Spoke to Jina at [facility], and was able to obtain some information regarding patient's baseline activity level prior to hospitalization. Met with patient as well, introduced self and role, but was unable to obtain information from patient. DCP assessment completed with information currently available. Patient is a 72 year old female who admitted yesterday morning to the care of the orthopedic team. PCP: Dr. Merida. Payer: confirmed: [facility]/Medicaid. Patient came to the hospital via private vehicle for a surgical procedure. Patient had revision reverse total shoulder arthroplasty. Patient has history of right shoulder avascular necrosis status post operative treatment proximal humerus fracture. Spoke to CONTACT LENS CURVE GRINDER[email or web address], Jina, at [facility]. Noted that patient has discharge orders. jina indicated that at her baseline, she is a one person assist, has a transfer pole. Her concerns are that notes indicate that patient was a three person assist during the night, and had to have in and out cath to void, and they don't have the staffing. Reminded her that this was a planned surgery, and plan was for her to return home. Spoke to patient briefly, indicated to her that she may need to go to [facility] before returning to [facility], patient yelled, No, I'm not going anywhere but [facility], or I will stay in the hospital. Patient then went to sleep. Called back over to [facility], and asked for nurse, Esme or Dasha, to come over and see patient, and evaluate. She has not yet worked with P.t. as well. Did ask Olesya at [facility] to review, as back up, she would need to submit auth to [facility], and since it's Sunday, may be beneficial to do as soon as possible. At this time, there are discharge orders, will need to have [facility] nurse come and see patient, and talk to her if she continues to refused to go to [facility], and if they refuse to accept her back. Confirmed that patient will be inpatient. P: DCP to continue to follow. At this time, she needs to work with P.T. to determine if she can go back to [facility], and needs to be able to void. Since the weekend is coming up, will need a definitive plan. Norma Allred RN/Breeder Service Technician Discharge Planning/Care Management CM Discharge Assessment Start: 09/22/22 09:08 Freq: Status: Active Protocol: Document 09/22/22 09:08 (Rec: 09/22/22 09:19 [id number]) Discharge Planning Assessment Assigned Line Cook Norma Allred RN/Breeder Service Technician Advance Directives? Yes: POLST Advance Directives on File No History Provided By Patient,Medical Record Prior Living Arrangements Assisted Living Comment Patient resides at [facility] Household Members none Type of transporation used prior to Relies on Others admit Independent with ADL's Yes Is patient alert and oriented? Yes Needs Assistance With Bathing,Meal Prep,Toileting, Managing Medications,Home Chores / Shopping Caregiver for Another No DME Already Rented / Owned Wheelchair,FWW / Walker Barriers to Discharge Yes Comment Patient was a three person transfer through the night, in and out cath, [facility] may not be able to accomidate, patient does not want to go to [facility]. Discharge Plan Assisted Living Facility Transportation Arrangement Facility Referrals Initiated Assisted Additional Comment As back up, having [facility] review. Whiteboard Updated in Patient Room with Yes name and ext. # of Line Cook Review Status In Process Next Review Type Continued Stay Review Pre-Anesthesia Assessment Start: 09/14/22 08:43 Freq: Status: Complete Protocol: Document 09/14/22 08:43 [facility] (Rec: 09/14/22 09:20 [facility] [id number]) Pre-Anesthesia Assessment Preferred Name Adia Patient Information Reviewed Via Phone Assessment Assessment Completed With Other Comment Completed with Esme PATRICIA at [facility] Diagnostic Results BMP/CMP,CBC,EKG Comment Recent labs @ [facility] 09/08/22, EKG @ [facility] 08/03/22-Per RN no pre-op orders received Primary Care Provider Amina Merida Medical Clearance Received Yes Seen Specialist in Last 12 Months Yes Specialist Seen Orthopedist Comment PCP clearance scanned Primary Language Montenegrin Preferred Language Montenegrin Feed Handler Required No Height 5 ft 8 in Weight 212 lb Body Mass Index (BMI) 32.2 Hearing Ability Normal Visual Assist Magnifying Glass Dentition Type Full- Upper & Lower Barriers to Learning None Hx Anesthesia Reactions No: HUBERT-Untreated, narcolepsy Hx Family Anesthesia Reaction No Hx Malignant Hyperthermia No Hx Blood Transfusions Yes: 1969 Hx Blood Transfusion Reaction No Anesthesia Review Requested No alcohol intake current Alcohol Intake Frequency Other: Currently not drinking in facility Smoking Status Current every day smoker Tobacco type cigarettes Smoking packs per day 5 Substance Use Type former substance user, methamphetamine Pain Present Pain Reported Musculoskeletal Symptoms Difficulty Walking,Joint Pain, Limited Range of Motion Patient is completely paralyzed or No completely immobile Prosthesis or Orthotic Device Wheelchair Gait/Transferring Impaired Mental Status Oriented to own ability Comment WC due to frequent narcolepsy events, does not walk, able to stand/transfer Is patient on oxygen? No Does patient have CHO/SOB No Hx Sleep Apnea Yes CPAP/BIPAP use prescribed not used Currently Taking a Beta Beverly Yes: Atenolol Can You Climb a Flight of Stairs Without Pt currently in WC SOB Hx Chest Pain No Hx SOB No Hx Syncope or Dizziness No Anti-Coagulant Therapy Yes: ASA 81mg daily- held 7 days prior per surgeon instructions to facility Has a Title 1 Tutor No Cardiac Testing No Hx Pacemaker/ICD No Pacemaker Rep Required? No Cardiac Clearance Received Not Applicable Diet Type At Home Regular Dysphagia No Gastrointestinal Symptoms None Bladder Pattern Incontinent,Urgency Urinary Catheter Present No Hx Urinary Self Catheterization No Comment Incontinence if not to bathroom in time Diabetes No Patient No Lactating No Hx Drug Resistant Organism No Presence of External or Internal Medical No Devices Have you had any close contact with No someone diagnosed with COVID-19? Received a COVID vaccine? Yes Received all doses? Yes Marital Status Lives With none Current Living Arrangements Assisted Living Support System Child/Children Patient Discharge Plan Description Assisted Facility/Rehab Comment Resides at [facility] Feels Safe in Current Environment Yes Been Physically Hurt or Threatened By a No Person in Current Environment Do you have thoughts of harming yourself None or others? Are you currently considering suicide? No Do you have a plan to hurt yourself or No Plan others? Do You Have Any Spiritual Beliefs That No May Affect Your HC Choices? Do You Have Any Cultural Practices That No May Affect Your HC Choices? Health Care Proxy/Next of Kin Negro (son) Health Care Proxy Emergency Contact Name Negro velazco) Emergency Contact Advance Directives? Yes: POLST Advance Directives on File No Requested Patient Bring Advanced Yes Directives DOS Power of Buckle Attaching Machine Operator Yes Power of Buckle Attaching Machine Operator Name Negro (son) Power of Buckle Attaching Machine Operator Comment Facility will fax over POLST and POA PAC Instructions Do not shave/clip surgical site,Durable medical equipment ,Medications to take/avoid, Nasal antibiotic,No ETOH/ petroleum product on skin DOS, NPO,Post-op transportation,Pre -surgical wash,Sensory aids, Sturdy shoes/comfortable clothes,Do not bring valuables and remove jewelry Comment No instructions for nasal abx or body wash given to facility
[2022-09-22] MEDS: HYDROCODONE/ACET 5/325 TABLET 1 TAB PO (09:21)
[2022-09-22] MEDS: DOCUSATE 100 MG CAPSULE PO ×2 (09:21→20:58)
[2022-09-22] MEDS: ASPIRIN EC 81 MG TABLET PO ×2 (09:21→20:58)
--- NOTE | 2022-09-22 09:40 | PT-OP ANOTE ---
Spoke with patient 9:00 regarding concerns about her mobility and possible need for SNF rehab. Nursing to get her pain medication prior to PT working with her and patient requested talking with discharge planning. PT back to see pt at 9:35, notified by nursing that patient has not had her pain medication and said she's in a narcolepsy episode and doesn't want to be bothered. PT notified discharge planning that patient has not been seen yet. [ End ]
--- NOTE | 2022-09-22 10:32 | PT.IIE ---
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) Presence of unspecified artificial shoulder joint (09/21/22) Other specified postprocedural states (09/21/22) Surgery Performed Operation Date: 09/21/22 10:45 Actual Procedures p Reverse Total Shoulder Arthroplasty w/ biceps tenodesis & removal of hardware(Right) - Domenic Valdez MD Surgical History (Last Updated 09/14/22 @ 09:22 by Carine Almeida RN) History of section (1979) History of open reduction and internal fixation (ORIF) procedure (05/06/20) History of surgery on upper extremity (1985) Medical History (Last Updated 09/14/22 @ 08:55 by Carine Almeida RN) Closed right humeral fracture Depression Hepatitis C HLD (hyperlipidemia) Hx of substance abuse Hypertension Narcolepsy and cataplexy Obesity (BMI 30-39.9) Obstructive sleep apnea of adult Stroke Physical Therapy Inpatient Evaluation/Re-Eval M1 PT/OT-IP Prior Functional Status Start: 09/22/22 08:50 Freq: NEEDED Status: Active Protocol: Document 09/22/22 10:13 [facility] (Rec: 09/22/22 10:31 [facility] [id number]) Medical Review Prior Functional Status Medical History Reviewed Yes Communication lethargic, oriented to self, place, situation. Mobility and Gait reports independent transfers with adjustable bed, pole. No ambulation; uses manual w/c for mobility Activities of Daily Living and IADL's assisted Social History Household Members none Living Arrangements Assisted Living Number of Stairs To Enter/Railing? 0 Home Environment Walk in Shower Home Equipment Manual Wheelchair,Raised Toilet Seat w/Armrests,Hand Held Shower Additional Social History Comment wants to return to [facility] but acknowledges mobility limitations s/p surgery M2 PT-IP Current Condition Start: 09/22/22 08:50 Freq: NEEDED Status: Active Protocol: Document 09/22/22 10:13 SAK (Rec: 09/22/22 10:31 [facility] [id number]) Physical Therapy Current Condition Current Condition Evaluation Date 05/07/20 Treatment Diagnosis weakness, difficulty with mobility M3 PT-IP Subjective Start: 09/22/22 08:50 Freq: NEEDED Status: Active Protocol: Document 09/22/22 10:13 SAK (Rec: 09/22/22 10:31 [facility] [id number]) Subjective Physical Therapy Visit Type Type Treatment Note Visit Start Time 09:45 Visit Stop Time 10:15 Total Visit Minutes 30 Physical Therapy Visit Comments Patient Comments Pt. willing to work with PT second attempt this am. States her brake on wheelchair has been broken for awhile. Uses pole for transfers out of bed, exits and enters bed on the right side. Patient Goals return home Therapy Pain Assessment Pain When Pain Assessed At Rest Pain Present Pain Present Pain Reported Location Right Shoulder Intensity 5 Scale Used Numeric (0 - 10) Description Aching Pain Management Techniques Distraction,Modification of Treatment,Re-positioning, Timing of Activity with Medications M4 PT-IP Mobility and Gait Start: 09/22/22 08:50 Freq: NEEDED Status: Active Protocol: Document 09/22/22 10:13 AUDELIA (Rec: 09/22/22 10:31 [facility] [id number]) PT-Bed Mobility Assessment Supine to Sit Supine to Sit Moderate Assistance,1 Person Assistance,Bedrails Scooting Scooting to Edge of Bed Moderate Assistance PT-Transfer Assessment Sit to and From Stand Sit to and from Stand Moderate Assistance,1 Person Assistance,Use of Upper Extremities Equipment Transfer Assistive Device Bed Rail,Gait Belt Transfers Transfer Destination Wheelchair Transfer Technique Stand Step Pivot Transfer Ability Level of Assist Moderate Assistance,1 Person Assistance,Use of Upper Extremities Comments Mobility Comments RN for SBA, stabilization of w /c due to right brake not working Gait Assessment Comments Gait Comments unable to ambulate PT-Balance Assessment Sitting Balance and Reactions Static Sitting Balance Ability Good Dynamic Sitting Balance Ability Fair Standing Balance and Reactions Static Standing Balance Ability Poor Dynamic Standing Balance Ability Poor M5 PT-IP Objective Assessments Start: 09/22/22 08:50 Freq: NEEDED Status: Active Protocol: Document 09/22/22 10:13 [facility]DELIA (Rec: 09/22/22 10:31 [facility] [id number]) Orientation Orientation/Cognition Level of Alertness Lethargic Orientation Name,Place,Situation Safety Awareness Decreased Safety Awareness Memory Description Short Term Impaired Gross Range of Motion Upper Extremity ROM Impairments left UE WNL right UE in sling. Hand ROM WNL. Sling adjusted for improved fit and support right UE Strength Comments Strength Comments left UE 5/5. Right UE NT due to surgery, in cling. Able to open and close hand LE strength grossly 3+/5 Sensation Assessment Sensation Gross Sensation WNL M7 PT-IP Assessment and Plan Start: 09/22/22 08:50 Freq: NEEDED Status: Active Protocol: Document 09/22/22 10:13 AUDELIA (Rec: 09/22/22 10:31 [facility] [id number]) PT Summary Assessment and Plan Potential Rehabilitation Potential Fair Status of Condition at Evaluation Evolving Summary Impairments Pain,ROM,Strength,Balance, Cognition,Bed Mobility, Transfers Goals Bed Mobility Goal Standby Assistance Transfer Goal Standby Assistance Other Goals Instruct in hand, elbow, and forearm ROM ex Days to Meet Goals 5 Frequency of Treatment Frequency Of Treatment Once a Day Treatment Plan Physical Therapy Treatment Plan Bed Mobility Training,Transfer Training,Therapeutic Exercise ,Post Op Education,Hot or Cold Pack Discharge Recommendations PT Discharge Recommendations SNF Rehab Other Discharge Recommendations *patient needs to have right w /c brake fixed or use different w/c. At this time need extra staff for stabilization of w/c during transfer Transportation Needs at Discharge Wheelchair/Cabulance
--- NOTE | 2022-09-22 15:53 | PT.IPTN ---
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) Presence of unspecified artificial shoulder joint (09/21/22) Other specified postprocedural states (09/21/22) Surgery Performed Operation Date: 09/21/22 10:45 Actual Procedures p Reverse Total Shoulder Arthroplasty w/ biceps tenodesis & removal of hardware(Right) - Domenic Valdez MD Physical Therapy Treatment Note M2 PT-IP Current Condition Start: 09/22/22 08:50 Freq: NEEDED Status: Active Protocol: Document 09/22/22 10:13 [facility]AK (Rec: 09/22/22 10:31 [facility] [id number]) Physical Therapy Current Condition Current Condition Evaluation Date 05/07/20 Treatment Diagnosis weakness, difficulty with mobility M3 PT-IP Subjective Start: 09/22/22 08:50 Freq: NEEDED Status: Active Protocol: Document 09/22/22 15:53 NBM (Rec: 09/22/22 17:07 [facility] [id number]) Subjective Physical Therapy Visit Type Type Treatment Note Visit Start Time 15:14 Visit Stop Time 15:53 Total Visit Minutes 39 Notes Sling adjustment per consult w / Physical Therapist. Number of BEAUTY CULTURIST APPRENTICE Visits 1 Physical Therapy Visit Comments Patient Comments Pt agreeable to working with PT. Patient Goals return home Therapy Pain Assessment Pain When Pain Assessed At Rest Pain Present Pain Present Pain Reported Location R Elbow Description Sharp,Shooting Pain Management Techniques Distraction,Modification of Treatment,Re-positioning M4 PT-IP Mobility and Gait Start: 09/22/22 08:50 Freq: NEEDED Status: Active Protocol: Document 09/22/22 15:53 NBM (Rec: 09/22/22 17:07 NB [id number]) PT-Bed Mobility Assessment Supine to Sit Supine to Sit Moderate Assistance,1 Person Assistance,Bedrails Sit to Supine Sit to Supine 1 Person Assistance Scooting Scooting to Edge of Bed Moderate Assistance PT-Transfer Assessment Sit to and From Stand Sit to and from Stand Moderate Assistance,1 Person Assistance,2 Person Assistance ,Use of Upper Extremities Equipment Transfer Assistive Device Bed Rail,Gait Belt Transfers Transfer Destination Bed Transfer Technique Stand Step Pivot Transfer Ability Level of Assist Moderate Assistance,1 Person Assistance,2 Person Assistance ,Use of Upper Extremities Comments Mobility Comments Pt on commode upon arrival w/ diagnostic imaging in room and willing to work with PT. Transfer goal to Bed. Sit to stand 2PA modA, cues for glute engagement and upright posture. 1PA standing for brief change. Step pivot transfer from commode to edge of bed. Sling doffed for elbow (flex/ext, supin/pron), wrist (flex/ext/small circles CW/ CCW), hand (flex/ext/abd) ROM. Sling strap noted not to fit around pt's waist and DI tech expresses concern neck strap is too short - pt cued for upright posture and educated for scapular squeezes w/ tactile cues x10 and chin tuck x3. Sling neck strap fit improves with improved upright posture. Sitting EOB>supine 2PA modA for assist w/ LE elevation to bed for bladder imaging. Pt tolerates gentle limited PROM R shoulder flexion in supine. To review sling fit per consult with PT, pt supine>sitting EOB 1PA w/ bedrails - Neck strap is confirmed adjusted appropriately and phlebotomy tech is added to waist strap. Pt educated to continue working on seated posture and may use towel under neck strap for discomfort. RN notified end of session pt appeared to void into commode. PT-Balance Assessment Sitting Balance and Reactions Static Sitting Balance Ability Good Dynamic Sitting Balance Ability Fair Standing Balance and Reactions Static Standing Balance Ability Poor Dynamic Standing Balance Ability Poor M5 PT-IP Objective Assessments Start: 09/22/22 08:50 Freq: NEEDED Status: Active Protocol: Document 09/22/22 10:13 [facility]AK (Rec: 09/22/22 10:31 [facility] [id number]) Orientation Orientation/Cognition Level of Alertness Lethargic Orientation Name,Place,Situation Safety Awareness Decreased Safety Awareness Memory Description Short Term Impaired Gross Range of Motion Upper Extremity ROM Impairments left UE WNL right UE in sling. Hand ROM WNL. Sling adjusted for improved fit and support right UE Lower Extremity ROM Assessment Within Functional Limits Strength Lower Extremity Strength Assessment Left Impaired Comments Strength Comments left UE 5/5. Right UE NT due to surgery, in cling. Able to open and close hand LE strength grossly 3+/5 Sensation Assessment Sensation Gross Sensation WNL M6 PT-IP Treatment Start: 09/22/22 08:50 Freq: NEEDED Status: Active Protocol: Document 09/22/22 15:53 NBM (Rec: 09/22/22 17:07 NBM [id number]) Physical Therapy Treatment Exercises Exercises Elbow Flexion/Extension,Wrist ROM,Hand ROM Education Education Provided Precautions Brace Education Donning,Patient Other Treatments Other Treatment Performed education for upright sitting posture with scapular retraction x 10, chin tuck x3; Sling phlebotomy tech for waist strap added and education for strap around neck for M7 PT-IP Assessment and Plan Start: 09/22/22 08:50 Freq: NEEDED Status: Active Protocol: Document 09/22/22 15:53 [facility] (Rec: 09/22/22 17:07 [facility] [id number]) PT Summary Assessment and Plan Potential Rehabilitation Potential Fair Status of Condition at Evaluation Evolving Summary Impairments Pain,ROM,Strength,Balance, Cognition,Bed Mobility, Transfers Goals Bed Mobility Goal Standby Assistance Transfer Goal Standby Assistance Other Goals Instruct in hand, elbow, and forearm ROM ex Days to Meet Goals 5 Frequency of Treatment Frequency Of Treatment Twice a Day Treatment Plan Physical Therapy Treatment Plan Bed Mobility Training,Transfer Training,Therapeutic Exercise ,Post Op Education,Hot or Cold Pack Other Recommendations and Next Treatment Hand and wrist ROM. Transfer Focus training, bed mobility training. Second person required to stabilize pt's w/c or use hospital w/c due to non-working right w/c brake. Precautions Shoulder Precautions Sling Other Precautions Reverse TSA Discharge Recommendations PT Discharge Recommendations SNF Rehab Other Discharge Recommendations Patient care needs are too high for her to be discharged back to assisted living. Recommend SNF rehab. Mobility unsafe s/p shoulder surgery as not able to use right UE, requires assistance for bed mobility and transfers . *patient needs to have right w /c brake fixed or use different w/c. At this time need extra staff for stabilization of w/c during transfer back to bed, use hospital w/c for safety after unless able to have w/c fixed. Transportation Needs at Discharge Wheelchair/Cabulance,Stretcher /Ambulance
[2022-09-22 16:35] VITALS: BP 120/69; PULSE 64; RESP 118; TEMP 36.1; O2SAT 96
[2022-09-22 19:25] VITALS: BP 152/76; PULSE 64; RESP 18; TEMP 36.4; O2SAT 96
[2022-09-23 02:35] VITALS: BP 145/77; PULSE 71; RESP 18; TEMP 36.6; O2SAT 95
[2022-09-23 06:40] VITALS: BP 157/85; PULSE 70; RESP 18; TEMP 36.7; O2SAT 96
[2022-09-23 07:45] VITALS: BP 143/81; PULSE 70; RESP 18; TEMP 36.7; O2SAT 96
[2022-09-23] MEDS: HYDROCODONE/ACET 5/325 TABLET 1 TAB PO (09:06)
[2022-09-23] MEDS: DOCUSATE 100 MG CAPSULE PO (09:06)
[2022-09-23] MEDS: ASPIRIN EC 81 MG TABLET PO (09:07)
--- NOTE | 2022-09-23 09:45 | PM.PNPO.1 ---
Subjective Subjective Date Patient Seen: 09/23/22 Time Patient Seen: 09:45 Interval history: Pt sitting up in bed, eating breakfast. Denies N/V, pain well-controlled with oral meds. There is some question about her urinary status; per nursing, she is requiring in-and-out catheterization, but per the pt, she is able to void but is not being helped to the commode or bathroom. She resides at [facility] and in review of PT notes, it appears that she is wheelchair-bound at baseline. In speaking with CM, it sounds like pt will needs SNF for rehab prior to going back to [facility], and [facility] can take pt today. However, pt is very vocal that she will only return to [facility]. 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 Sensation to light touch intact throughout RUE. Aquacel dressing with some areas of bloody drainage, but intact. Objective Labs 09/22/22 04:21 [facility] Medical History (Updated 09/14/22 @ 08:55 by Carine Almeida RN) Closed right humeral fracture Depression Hepatitis C HLD (hyperlipidemia) Hx of substance abuse Hypertension Narcolepsy and cataplexy Obesity (BMI 30-39.9) Obstructive sleep apnea of adult Stroke Surgical History (Updated 09/22/22 @ 08:01 by Brunilda Duke PA-C) History of section (1979) History of open reduction and internal fixation (ORIF) procedure (05/06/20) History of surgery on upper extremity (1985) Family History Mother Cancer Social History marital status: unmarried,single number of children: 3 household members: none lives independently: No caregiver/support person: Yes housing: assisted living facility pets and animals: No Smoking Status: Current every day smoker second hand exposure: Yes alcohol intake: former substance use type: marijuana caffeine: Yes (15-20 20-oz cups daily) Assessment & Plan Post-op Assessment and plan (1) Status post total shoulder arthroplasty: Assessment and Plan narrative: Discharge w/ disposition per CM. F/u w/ Dr Valdez as scheduled in 2 weeks. Multimodal pain control to include hydrocodone; ASA 81 mg BID for VTE prophylaxis. Postoperative Procedures: Procedures Operation Date: 09/21/22 10:45 Actual Procedure Side Surgeon p Reverse Total Shoulder Arthroplasty w/ biceps tenodesis & removal of hardware Right Domenic Valdez MD Postoperative day: 2
--- NOTE | 2022-09-23 09:48 | PT.IPTN ---
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) Presence of unspecified artificial shoulder joint (09/21/22) Other specified postprocedural states (09/21/22) Surgery Performed Operation Date: 09/21/22 10:45 Actual Procedures p Reverse Total Shoulder Arthroplasty w/ biceps tenodesis & removal of hardware(Right) - Domenic Valdez MD Physical Therapy Treatment Note M2 PT-IP Current Condition Start: 09/22/22 08:50 Freq: NEEDED Status: Active Protocol: Document 09/22/22 10:13 SAK (Rec: 09/22/22 10:31 SAK [id number]) Physical Therapy Current Condition Current Condition Evaluation Date 05/07/20 Treatment Diagnosis weakness, difficulty with mobility M3 PT-IP Subjective Start: 09/22/22 08:50 Freq: NEEDED Status: Active Protocol: Document 09/23/22 09:48 AB (Rec: 09/23/22 11:08 AB [id number]) Subjective Physical Therapy Visit Type Type Treatment Note Visit Start Time 09:48 Visit Stop Time 10:20 Number of MINIATURE SET CONSTRUCTOR Visits 32 Physical Therapy Visit Comments Patient Comments agreed to get out of the bed M4 PT-IP Mobility and Gait Start: 09/22/22 08:50 Freq: NEEDED Status: Active Protocol: Document 09/23/22 09:48 AB (Rec: 09/23/22 11:08 AB [id number]) PT-Bed Mobility Assessment Supine to Sit Supine to Sit Maximum Assistance,Head of Bed Elevated,Bedrails Scooting Scooting to Edge of Bed Maximum Assistance PT-Transfer Assessment Sit to and From Stand Sit to and from Stand Maximum Assistance,1 Person Assistance,2 Person Assistance ,Use of Upper Extremities Equipment Transfer Assistive Device Gait Belt,Large Based Quad Cane Orthotic/Prosthetic Devices or Brace: Yes Transfers Transfer Destination Wheelchair Transfer Technique Squat Pivot Transfer Ability Level of Assist Maximum Assistance,1 Person Assistance,2 Person Assistance ,Use of Upper Extremities Comments Mobility Comments completed supine to sit with HOB elevated and use of bed rail max A and max cues. max A for scooting to EOB. assisted pt with sling adjustment. pt needed assist with brief change. completed sit to stand from EOB max A x 1-2 and max cues using LBQC for support requiring max A for standing balance. nurse assisted with brief management . pt sat back down on EOB. positioned w/c next to pt and pt completed squat pivot transfer to w/c with pt reaching for w/c armrest during transfers max A x 1-2 and max cues. positioned pt on the chair. call light and table placed within reach. intructed pt on elbow/hand/ wrist exercises. M5 PT-IP Objective Assessments Start: 09/22/22 08:50 Freq: NEEDED Status: Active Protocol: Document 09/22/22 10:13 SAK (Rec: 09/22/22 10:31 SAK [id number]) Orientation Orientation/Cognition Level of Alertness Lethargic Orientation Name,Place,Situation Safety Awareness Decreased Safety Awareness Memory Description Short Term Impaired Gross Range of Motion Upper Extremity ROM Impairments left UE WNL right UE in sling. Hand ROM WNL. Sling adjusted for improved fit and support right UE Lower Extremity ROM Assessment Within Functional Limits Strength Lower Extremity Strength Assessment Left Impaired Comments Strength Comments left UE 5/5. Right UE NT due to surgery, in cling. Able to open and close hand LE strength grossly 3+/5 Sensation Assessment Sensation Gross Sensation WNL M6 PT-IP Treatment Start: 09/22/22 08:50 Freq: NEEDED Status: Active Protocol: Document 09/23/22 09:48 AB (Rec: 09/23/22 11:08 AB [id number]) Physical Therapy Treatment Education Education Provided Precautions,Weight Bearing Status,Safety M7 PT-IP Assessment and Plan Start: 09/22/22 08:50 Freq: NEEDED Status: Active Protocol: Document 09/23/22 09:48 AB (Rec: 09/23/22 11:08 AB [id number]) PT Summary Assessment and Plan Potential Rehabilitation Potential Fair Summary Impairments Pain,ROM,Strength,Balance, Coordination,Sensation,Tone, Cognition,Bed Mobility, Transfers,Gait,Activity Tolerance Progress Towards Goals Slow Progress due to Medical Issues,Slow Progress due to Activity Tolerance Assessment Summary pt requiring max A x 1-2 with mobility and will require SNF rehab to improve strength and function. will continue to assess progress. Goals Bed Mobility Goal Standby Assistance Transfer Goal Standby Assistance Days to Meet Goals 5 Frequency of Treatment Frequency Of Treatment Twice a Day Treatment Plan Physical Therapy Treatment Plan Bed Mobility Training,Transfer Training,Gait Training, Therapeutic Exercise,Balance Retraining,Post Op Education, Discharge Planning,Hot or Cold Pack,Neuromuscular Re-ed, Coordination Retraining,Manual Therapy Precautions Shoulder Precautions Sling,PROM,Internal Rotation to Body,No External Rotation, No Abduction,Forward Flexion to 90 degrees,Pendulums Weight Bearing Status Weight Bearing Status Non-Weight Bearing Allowed Weight Bearing Amount (enter % RUE NWB or #) (%) Recommendations To Nursing Amount of Assist Needed 2 Person Assist Discharge Recommendations PT Discharge Recommendations SNF Rehab Transportation Needs at Discharge Wheelchair/Cabulance
--- NOTE | 2022-09-23 14:40 | PC.NURSE ---
Transfer: Report called to [facility] and report given to Saira admitting nurse. Reviewed pt has been unable to void except some over flow and has been getting in and out caths since surgery. Bladder scanned this am for 800 to 1000. In and out cath was 950. Saira will talk with the doctor about ailin, pt's pcp. Pt is concerned about starting her meds and they were notified of this. The plan is to transfer from [facility] back to her home at [place]. Reviewed hospital course, pt's specific needs such as meds in a carrier and she has no teeth. Questions answered. Pt d/c to facility via their van.
== END 2022-09-23 11:15 | DRG 483 ==
PROVIDERS: Admitting Provider Orthopaedic Surgery; PCP Internal Medicine; Referring Provider Orthopaedic Surgery; Visit Provider Orthopaedic Surgery
PROC: 0RRJ00Z Replacement of Right Shoulder Joint with Reverse Ball and Socket Synthetic Substitute, Open Approach (ICD-10-PCS; CPT 23472; principal; 2022-09-21 10:45)
DX: M87.021 Idiopathic aseptic necrosis of right humerus (principal); E78.5 Hyperlipidemia, unspecified; I10 Essential (primary) hypertension; F32.A Depression, unspecified; Z87.891 Personal history of nicotine dependence; Z20.822 Contact with and (suspected) exposure to COVID-19
CPT/HCPCS: 36415; 64450; 73020; 73030; 76000; 85027; 87635; 97110; 97162; 97530; 97535; C1776; C9803; J0690; J1100; J2250; J2405; J2704; J3010

== ENCOUNTER → 2022-10-03 19:20 | Outpatient (ROUT) | payer MEDICARE, MEDICAID, SELFPAY ==
[2022-09-21 15:46] VITALS: BMI 32.2
[2022-10-03 19:49] LABS: Appearance Urine UA CLOUDY; Bilirubin Urine UA 1+ (NEGATIVE); Color Urine UA YELLOW; Glucose Urine UA NEGATIVE (Negative); Ketones Urine UA NEGATIVE (NEGATIVE); Leukocyte Esterase Urine UA 3+ (NEGATIVE); Nitrite Urine UA POSITIVE (Negative); Occult Blood Urine UA 2+ (Negative); Protein Urine UA 2+ (Negative); Specific Gravity Urine UA <=1.005 (1.000-1.035)
[2022-10-03 20:19] LABS: pH Urine UA >= 9.0 (4.5-8.0)
[2022-10-03 20:20] LABS: Bacteria Urine Many (>30); Ictotest Urine Negative (Negative); RBC Urine None Seen (0-5/HPF); Triple Phosphate Crystal Urine Many; WBC Urine >100/HPF (0-5/HPF)
== END ==
PROVIDERS: PCP Internal Medicine; Visit Provider Internal Medicine
DX: Z11.2 Encounter for screening for other bacterial diseases (principal)
CPT/HCPCS: 81001; 87077; 87086; 87186

== ENCOUNTER → 2022-11-03 16:18 | Outpatient (CLI) | payer MEDICARE, MEDICAID, SELFPAY ==
[2022-09-21 15:46] VITALS: BMI 32.2
--- NOTE | 2022-11-03 | DI.US.S_ITS ---
PROCEDURE: US PERIP VENOUS LOW EXTREM LT INDICATIONS: Please evaluate for DVT/EDEMA TECHNIQUE: Real-time imaging, as well as color and pulse Doppler interrogation, were performed of the lower extremity deep veins from the inguinal ligament to the popliteal fossa. COMPARISON: [facility], [facility] VENOUS LOW EXTREM LT, 04/02/2018, 8:44. FINDINGS: The common femoral, femoral and popliteal veins are normally compressible, and free of intraluminal thrombus. Color and pulse Doppler demonstrate normal phasic intraluminal flow. There is normal augmentation response to distal compression maneuver. This study is limited by body habitus. IMPRESSION: Negative for deep venous thrombosis. Dictated by: Oliverio Rodrigues M.D. on 11/03/2022 at 16:16 Approved by: Oliverio Rodrigues M.D. on 11/03/2022 at 16:17
== END ==
PROVIDERS: PCP Internal Medicine; Referring Provider Nurse Practitioner Gerontology; Visit Provider Nurse Practitioner Gerontology
DX: R22.42 Localized swelling, mass and lump, left lower limb (principal)
CPT/HCPCS: 93971

== ENCOUNTER → 2022-12-05 07:45 | Outpatient (ROUT) | payer MEDICARE, MEDICAID, SELFPAY ==
[2022-09-21 15:46] VITALS: BMI 32.2
[2022-12-05 10:22] LABS: BUN Creatinine Ratio 25.4 (6-22); Blood Urea Nitrogen 32 mg/dL (7-17); Calcium 9.1 mg/dL (8.4-10.2); Carbon Dioxide 32 mmol/L (22-32); Chloride 98 mmol/L (98-107); Estimated Glomerular Filt Rate 45 mL/min (>60); Glucose 87 mg/dL (80-110); HEMOLYSIS < 15 (0-50); Potassium 3.7 mmol/L (3.4-5.1); Sodium 136 mmol/L (137-145)
== END ==
PROVIDERS: PCP Internal Medicine; Visit Provider Nurse Practitioner Gerontology
DX: I10 Essential (primary) hypertension (principal); R60.0 Localized edema
CPT/HCPCS: 36415; 80048

== ENCOUNTER → 2023-01-09 15:43 | Outpatient (ROUT) | payer MEDICARE, MEDICAID, SELFPAY ==
[2022-09-21 15:46] VITALS: BMI 32.2
[2023-01-09 16:15] LABS: BUN Creatinine Ratio 21.8 (6-22); Blood Urea Nitrogen 32 mg/dL (7-17); Calcium 9.3 mg/dL (8.4-10.2); Carbon Dioxide 28 mmol/L (22-32); Chloride 99 mmol/L (98-107); Estimated Glomerular Filt Rate 38 mL/min (>60); Glucose 94 mg/dL (80-110); HEMOLYSIS < 15 (0-50); Potassium 4.1 mmol/L (3.4-5.1); Sodium 135 mmol/L (137-145)
== END ==
PROVIDERS: PCP Internal Medicine; Visit Provider Internal Medicine
DX: N18.9 Chronic kidney disease, unspecified (principal)
CPT/HCPCS: 80048

== ENCOUNTER → 2023-08-08 10:27 | Outpatient (CLI) | payer MEDICARE, MEDICAID, SELFPAY ==
[2022-09-21 15:46] VITALS: BMI 32.2
--- NOTE | 2023-08-08 10:28 | DI.US.S_ITS ---
PROCEDURE: US PELVIC COMPLETE INDICATIONS: PMB TECHNIQUE: Real-time scanning was performed of the pelvic organs, with image documentation. Additional endovaginal scanning was necessary due to incomplete visualization of the adnexal and endometrial structures by transabdominal scanning. COMPARISON: [facility], , US PELVIC COMPLETE, 06/26/2021, 11:45. FINDINGS: Uterus: Uterus is anteverted and normal in size at 6.5 x 3.4 x 5.6 cm. The myometrium is homogeneous. The endometrium is focally thickened, measuring 7.7 mm combined thickness. No fibroids Ovaries: Right ovary is not visualized, possibly secondary to involutional change. Left ovary measures 2.2 x 2.7 x 1.2 cm. It has a normal postmenopausal appearance. Other: No pathologic free abdominal or pelvic fluid. IMPRESSION: Focally thickened endometrium in a patient with postmenopausal bleeding. Consider endometrial hyperplasia or endometrial carcinoma. We strive to produce accurate, complete, and clear reports of imaging services. To assist us in improving patient care, this report was composed using standard report templates and voice recognition software. Therefore, it may contain abnormal punctuation, insertions and/or omissions. Occasional wrong-word or sound-alike substitutions may occur. Though we review the report and make efforts to correct it, we do recommend that the report be read carefully in proper context to recognize any text inaccuracies. Dictated by: Taiwo Parker M.D. on 08/08/2023 at 13:31 Approved by: Taiwo Parker M.D. on 08/08/2023 at 13:48
== END ==
PROVIDERS: PCP Internal Medicine; Referring Provider Obstetrics & Gynecology; Visit Provider Obstetrics & Gynecology
DX: N95.0 Postmenopausal bleeding (principal); R93.89 Abnormal findings on diagnostic imaging of other specified body structures
CPT/HCPCS: 76830; 76856

== ENCOUNTER 2024-03-29 10:04 | Emergency (ER) | payer MEDICARE, MEDICAID, SELFPAY ==
[2022-09-21 15:46] VITALS: BMI 32.2
[2024-03-29] VITALS (7 sets, daily range): BP systolic 126–164; BP diastolic 66–73; PULSE 52–67; RESP 15; TEMP 36.5; O2SAT 94–99; BMI 31.3
--- NOTE | 2024-03-29 10:09 | ED.GENADULT ---
HPI - General Adult General Chief complaint: Weakness Stated complaint: rule out dvt, sent by [facility] Time Seen by Provider: 03/29/24 10:08 History of Present Illness HPI narrative: 74-year-old woman currently in assisted living with a history of hyperlipidemia, prior stroke, sleep apnea history of hypersomnolence who went to the walk-in clinic today after nurse at her assisted living facility was concerned that her right small toe was painful. Sent to the emergency department for consideration of DVT. Patient is somewhat somnolent, does have residual effects of her prior stroke. Bilateral lower extremity edema with no calf pain that makes me think immediately of DVT and the toe of concern does not appear to be abnormal as she is lying in bed with her feet elevated at this time. She does smell strongly of urine and does seem slightly confused. Related Data Home Medications Medication Instructions Recorded Confirmed atenolol 25 mg tablet 25 mg PO DAILY 02/18/18 03/29/24 atorvastatin 20 mg tablet 20 mg PO DAILY 02/18/18 03/29/24 venlafaxine 75 mg tablet 300 mg PO SEEINSTR 02/18/18 03/29/24 aspirin 81 mg chewable tablet 81 mg PO DAILY 03/08/18 03/29/24 hydroxyzine pamoate 25 mg capsule 25 mg PO BID 09/14/22 03/29/24 (Vistaril) acetaminophen 650 mg 325 mg PO TID 08/24/23 03/29/24 tablet,extended release calcium carbonate (Tums) 200 mg PO BID 08/24/23 03/29/24 clobetasol 0.05 % topical cream 1 applic topical DAILY 08/24/23 03/29/24 docusate sodium 100 mg capsule 100 mg PO BID 08/24/23 03/29/24 furosemide 20 mg tablet 20 mg PO QAM 08/24/23 03/29/24 hydrochlorothiazide 12.5 mg tablet 12.5 mg PO DAILY 08/24/23 03/29/24 ketoconazole 2 % shampoo 1 applic topical 2XW 08/24/23 03/29/24 ketoconazole 2 % topical cream 1 applic topical DAILY 08/24/23 03/29/24 modafinil 200 mg tablet 400 mg PO DAILY 08/24/23 03/29/24 nystatin 100,000 unit/gram topical 1 applic topical BID 08/24/23 03/29/24 cream potassium chloride 10 mEq 10 meq PO .COMPLEX 08/24/23 03/29/24 capsule,extended release Previous Rx's Medication Instructions Recorded ondansetron 4 mg disintegrating 4 mg PO Q8H PRN nausea and 04/24/20 tablet vomiting #10 tabs platform walker #1 ea 05/07/20 hydrocodone 5 mg-acetaminophen 325 1 tab PO Q4-6H PRN Pain, Moderate 09/22/22 mg tablet (4-6) #40 tabs Allergies Allergy/AdvReac Type Severity Reaction Status Date / Time No Known Drug Allergies Allergy Verified 03/29/24 10:27 Review of Systems Review of Systems Narrative: Pertinent positive and negative findings as per HPI Patient History Medical History (Updated 03/29/24 @ 11:35 by Kemi Roe MD) HLD (hyperlipidemia) Hx of substance abuse Depression Closed right humeral fracture Obstructive sleep apnea of adult Obesity (BMI 30-39.9) Hepatitis C Narcolepsy and cataplexy Stroke Hypertension Surgical History (Updated 09/22/22 @ 08:01 by Brunilda Duke PA-C) History of open reduction and internal fixation (ORIF) procedure (05/06/20) History of surgery on upper extremity (1985) History of section (1979) Family History Mother Cancer Social History marital status: unmarried,single number of children: 3 household members: none lives independently: No caregiver/support person: Yes housing: assisted living facility pets and animals: No Smoking Status: Current every day smoker second hand exposure: Yes alcohol intake: former substance use type: marijuana caffeine: Yes (15-20 20-oz cups daily) Smoking Status: Current every day smoker alcohol intake frequency: a few times a month Substance Use Type: former substance user and methamphetamine Exam Initial Vital Signs Initial Vital Signs: Vital Signs Pulse Rate 66 03/29/24 10:12 Pulse Oximetry 95 03/29/24 10:12 General: Chronically ill-appearing, appears fatigued, slightly dysarthric speech from her prior stroke HEENT: Moist mucous membranes, normal sclera with reactive pupils, Respiratory: Lungs are clear to auscultation, no wheezing no rales no rhonchi. Full and symmetrical air movement Cardiac: Regular rate and rhythm no murmurs no bruits Abdomen: Soft, nontender, good bowel tones, no flank pain Skin: Warm and dry, no rashes Neurologic: Grossly neurologically intact with no obvious asymmetries or abnormalities Extremities: No trauma, 1+ bilateral lower extremity edema with chronic venous stasis changes. No calf tenderness to palpation. Toes with minor erythema from being dependent however there is no obvious abnormalities to suggest vascular insufficiency or bacterial infection in any of her toes Psych: Cooperative, slightly confused unclear if this is baseline, new or simply being fatigued Course Orders Ordered: ED Orders 03/29/24 10:19 BNP [NT-proBNP (BNP-Adult 18+)] Stat Complete Blood Count AUTO DIFF Stat Comprehensive Metabolic Panel Stat D Dimer Stat Lactate (Lactic Acid) Stat Trop I [Troponin I] Stat 03/29/24 10:49 Urinalysis and Microscopic Stat Urine Culture Stat Vital Signs Vital signs: Vital Signs - 8 hr 03/29/24 10:12 03/29/24 10:13 03/29/24 10:13 Temperature Pulse Rate 66 62 Respiratory Rate Blood Pressure 141/73 H Pulse Oximetry 95 96 Oxygen Delivery Method 03/29/24 10:21 03/29/24 10:30 03/29/24 10:30 Temperature 97.7 F Pulse Rate 60 67 Respiratory Rate 15 Blood Pressure 141/73 H 164/72 H Pulse Oximetry 96 94 Oxygen Delivery Method Room Air 03/29/24 11:00 03/29/24 11:01 03/29/24 11:01 Temperature Pulse Rate 57 L 54 L Respiratory Rate Blood Pressure 126/66 Pulse Oximetry 97 98 Oxygen Delivery Method Room Air Medical Decision Making Lab Data 03/29/24 10:19 03/29/24 10:19 Labs: Lab Results 03/29/24 03/29/24 Range/Units 10:19 10:49 WBC 4.1 L (4.5-11.0) X10^3/uL RBC 4.04 (4.0-5.2) X10^6/uL Hgb 12.5 (12.0-16.0) g/dL Hct 36.3 (36-46) % MCV 90.0 (80-100) fL MCH 30.9 (26-34) PG MCHC 34.3 (30-36) % RDW 13.9 (11.6-14.8) % Plt Count 116 L (150-400) X10^3/uL Neut % (Auto) 71.6 (50-75) % Lymph % (Auto) 19.8 L (25-40) % [place] % (Auto) 7.6 (3-14) % Eos % (Auto) 0.1 L (2-4) % Baso % (Auto) 0.9 (0-2) % Neut # (Auto) 2900 (1351-6348) /uL Lymph # (Auto) 800 L (7744-1361) /uL [place] # (Auto) 300 (0-900) /uL Eos # (Auto) 0 (0-450) /uL Baso # (Auto) 0 (0-100) /uL D-Dimer 426 (<500) ng/ml Sodium 141 (137-145) mmol/L Potassium 3.2 L (3.4-5.1) mmol/L Chloride 101 (98-107) mmol/L Carbon Dioxide 29 (22-32) mmol/L BUN 27 H (7-17) mg/dL Creatinine 1.14 H (0.52-1.04) mg/dL Estimated GFR 51 L (>60) mL/min BUN/Creatinine Ratio 23.7 H (6-22) Glucose 114 H (80-110) mg/dL Lactate 1.4 (0.7-2.1) mmol/L Calcium 9.8 (8.4-10.2) mg/dL Total Bilirubin 0.6 (0.2-1.3) mg/dL AST 44 H (14-36) IU/L ALT 44 H (<35) IU/L Alkaline Phosphatase 146 H (38-126) U/L Total Protein 7.2 (6.3-8.2) g/dL Albumin 4.2 (3.5-5.0) g/dL Globulin 3.0 (1.7-4.1) g/dL Albumin/Globulin Ratio 1.4 (1.0-2.8) Urine Color Yellow Urine Appearance Clear Urine pH 6.0 (4.5-8.0) Ur Specific [place] 1.020 (1.000-1.035) Urine Protein Negative (Negative) Urine Glucose (UA) Negative (Negative) g/dL Urine Ketones Trace H (NEGATIVE) Urine Occult Blood Negative (Negative) Urine Nitrate Negative (Negative) Urine Bilirubin Negative (NEGATIVE) Urine Urobilinogen 1.0 (0.2) E.U./dL Ur Leukocyte Esterase Trace H (NEGATIVE) Urine RBC None seen (0-5/HPF) Urine WBC 0-1/hpf (0-5/HPF) Ur Squamous Epith Cells 5-10 /hpf H (0-5/HPF) Urine Bacteria Many (>30) H (None) Ur Culture Indicated? Specimen cultured Vol Urine Centrifuged 10ml (spun) MDM Narrative Medical decision making narrative: CC: Lower extremity edema. Nurse at assisted living was concerned about her right small toe. Nurse that imer was concerned with DVT on the left. Patient has no specific complaints Complicating co-morbidities: Prior stroke, assisted living facility Data collected from: patient Medical records reviewed: Primary care notes reviewed. Surgical notes after humeral surgery in 2022. Sleep study notes reviewed. Differential considered: Lower extremity edema, worsening congestive heart failure, sepsis, urinary tract infection I do not suspect DVT at this time Exam documented above, pertinent findings include: Patient appears chronically unwell, has sequelae from her prior stroke but it it is able to cooperate with exam. I am not appreciating abnormalities to her lower extremities that would suggest cellulitis, toe infection or DVT. She does have bilateral symmetrical lower extremity edema with venous stasis changes. She does smell strongly of urine. Lab Test results independently reviewed as above. Pertinent findings: CBC has a white count low at 4.1 which looks like it is close to her baseline. Low platelets at 116, again close to her baseline. No anemia Chemistries are notable for slightly improved creatinine at 1.1. Potassium slightly low at 3.2. Minimally elevated AST, ALT and alk-phos with normal bilirubin D-dimer is not elevated, DVT/PE is felt to be quite unlikely Urine has trace leukocytes many bacteria and multiple squamous cells. This was a catheterized sample. We will opt to treat this, it has been cultured Troponin is unremarkable BNP is minimally elevated Imaging studies independently reviewed: Consultations: Treatments: Cast urine collection Oral potassium for potassium at 3.2. On current medication regimen without potassium supplementation she has not had evidence of hypokalemia before I do not believe that additional potassium to her home regimen needs to be included Started on Keflex for urinary tract infection, most recent positive urine was September of 2022 that showed Proteus resistant only to nitrofurantoin Discussion: 74-year-old woman with prior stroke currently at assisted living reportedly came over with concerns for her right toes which appear to be normal once her feet are elevated. Question of DVT with no clinical evidence to suggest this and low D-dimer. There is no evidence of acute coronary syndrome with an undetectable troponin. On clinical exam she does not have significant congestive heart failure and BNP is minimally elevated only. She does smell strongly of urine and a cast sample suggests she may have an infection. She will be started on cephalexin for 7 days to treat this. At this point there is no evidence of sepsis, acute stroke, DVT or pulmonary embolism, congestive heart failure or alternate explanation that would require additional workup, imaging or hospitalization. Patient is safe for discharge Discharge Plan Departure Patient Disposition: Home Clinical Impression: Low blood potassium Urinary tract infection Qualifiers: Urinary tract infection type: acute cystitis Hematuria presence: with hematuria Qualified Code(s): N30.01 - Acute cystitis with hematuria Instructions: DI for Urinary Tract Infection (UTI) Activity Restrictions/Additional Instructions: Thank you for coming in today I am not seeing any evidence of significant skin infection. Went your leg is elevated the discoloration to your small toes on the right side has resolved. The swelling to your legs is symmetrical and I do recommend continuing the Lasix and the hydrochlorothiazide. There was no evidence of blood clots in your legs or your lungs today. Similarly, I did not find any suggestion of the heart attack or heart attack like syndrome or severe congestive heart failure that would require change to medications or hospitalization. Your potassium is slightly low today. I have given you a single dose potassium supplementation in the emergency department. In looking at prior blood work, this has not been a chronic issue for you. With your next follow up appointment with your primary care physician checking potassium levels we will be appropriate however I do not think that we need to add potassium currently to your usual medications It does look like you are developing a bladder infection. Based on your last bladder infection, I am giving you prescription for Keflex to complete over 7 days. Your initial dose was given in the emergency department. There is no evidence of sepsis or overwhelming infection. If you find that you are getting worse or develop any new symptoms, please feel free to return to the emergency department for further evaluation. Prescriptions: No Action modafinil 200 mg tablet 400 mg PO DAILY nystatin 100,000 unit/gram cream 1 applic topical BID furosemide 20 mg tablet 20 mg PO QAM potassium chloride 10 mEq capsule, extended release 10 meq PO .COMPLEX Rx Instructions: 10 mEq orally every Wed, Fri, Sun; hydrochlorothiazide 12.5 mg tablet 12.5 mg PO DAILY clobetasol 0.05 % cream 1 applic topical DAILY docusate sodium 100 mg capsule 100 mg PO BID ketoconazole 2 % shampoo 1 applic topical 2XW ketoconazole 2 % cream 1 applic topical DAILY calcium carbonate [Tums] 200 mg calcium (500 mg) tablet,chewable 200 mg PO BID aspirin 81 mg Tablet,Chewable 81 mg PO DAILY ondansetron 4 mg tablet,disintegrating 4 mg PO Q8H PRN (Reason: nausea and vomiting) Qty: 10 0RF (DME) platform walker Qty: 1 0RF Rx Instructions: please dispense one platform walker s/p ORIF of right humeral fracture, expected length of need 3 months hydroxyzine pamoate [Vistaril] 25 mg capsule 25 mg PO BID hydrocodone-acetaminophen 5-325 mg Tablet 1 tab PO Q4-6H PRN (Reason: Pain, Moderate (4-6)) Qty: 40 0RF atorvastatin 20 mg tablet 20 mg PO DAILY venlafaxine 75 mg tablet 300 mg PO SEEINSTR Patient Comments: 300mg qam, 37.5mg qpm atenolol 25 mg tablet 25 mg PO DAILY acetaminophen 650 mg tablet extended release 325 mg PO TID Referrals: Amina Merida MD [Primary Care Provider] - Stand Alone Forms: Patient Portal/API
[2024-03-29 10:32] LABS: Add Manual Diff / Slide Review NO; Basophils Absolute Auto 0 /uL (0-100); Basophils Percent Auto 0.9 % (0-2); Eosinophils Absolute Auto 0 /uL (0-450); Eosinophils Percent Auto 0.1 % (2-4); Hematocrit 36.3 % (36-46); Hemoglobin 12.5 g/dL (12.0-16.0); Lymphocytes Absolute Auto 800 /uL (1100-4500); Lymphocytes Percent Auto 19.8 % (25-40); Mean Corpuscular HGB Conc 34.3 % (30-36); Mean Corpuscular Hemoglobin 30.9 PG (26-34); Monocytes Absolute Auto 300 /uL (0-900); Monocytes Percent Auto 7.6 % (3-14); Neutrophils Absolute Auto 2900 /uL (1500-7000); Neutrophils Percent Auto 71.6 % (50-75); Platelet Count 116 X10^3/uL (150-400); Red Blood Cell Count 4.04 X10^6/uL (4.0-5.2); Red Cell Distribution Width 13.9 % (11.6-14.8); White Blood Cell Count 4.1 X10^3/uL (4.5-11.0)
[2024-03-29 10:48] LABS: D Dimer 426 ng/ml (<500)
[2024-03-29 10:49] LABS: Lactate (Lactic Acid) 1.4 mmol/L (0.7-2.1)
[2024-03-29 10:50] LABS: Alanine Aminotransferase 44 IU/L (<35); Albumin 4.2 g/dL (3.5-5.0); Albumin Globulin Ratio 1.4 (1.0-2.8); Alkaline Phosphatase 146 U/L (38-126); Aspartate Aminotransferase 44 IU/L (14-36); BUN Creatinine Ratio 23.7 (6-22); Bilirubin Total 0.6 mg/dL (0.2-1.3); Blood Urea Nitrogen 27 mg/dL (7-17); Calcium 9.8 mg/dL (8.4-10.2); Carbon Dioxide 29 mmol/L (22-32); Chloride 101 mmol/L (98-107); Estimated Glomerular Filt Rate 51 mL/min (>60); Glucose 114 mg/dL (80-110); HEMOLYSIS 16 (0-50); Potassium 3.2 mmol/L (3.4-5.1); Sodium 141 mmol/L (137-145); Total Protein 7.2 g/dL (6.3-8.2)
--- NOTE | 2024-03-29 11:06 | PC.NURSE ---
[facility] to [facility]/o right pinky toe being purple. [facility] stated [facility] were worried about blood clot. Strong urine odor noted on pt.
[2024-03-29 11:10] LABS: Appearance Urine UA CLEAR; Bilirubin Urine UA NEGATIVE (NEGATIVE); Color Urine UA YELLOW; Glucose Urine UA NEGATIVE (Negative); Ketones Urine UA TRACE (NEGATIVE); Leukocyte Esterase Urine UA TRACE (NEGATIVE); Nitrite Urine UA NEGATIVE (Negative); Occult Blood Urine UA NEGATIVE (Negative); Protein Urine UA NEGATIVE (Negative)
[2024-03-29 11:17] LABS: RBC Urine None Seen (0-5/HPF); Urine Volume 10mL (spun)
[2024-03-29 11:18] LABS: Bacteria Urine Many (>30); Culture Indicated Urine Specimen Cultured; Squamous Epithelial Cell Urine 5-10 /HPF (0-5/HPF); WBC Urine 0-1/HPF (0-5/HPF)
[2024-03-29 11:33] LABS: NT-proBNP (BNP-Adult 18+) 679 pg/mL (<125); Troponin I < 0.012 ng/mL (0.01-0.034)
[2024-03-29] MEDS: POTASSIUM CHLORIDE 20 MEQ TAB 40 MEQ PO (11:38)
[2024-03-29] MEDS: cephALEXin 250 MG CAPSULE 500 MG PO (11:38)
== END 2024-03-29 11:55 | disposition home or self-care (01) ==
PROVIDERS: Emergency Provider Emergency Medicine; PCP Internal Medicine
DX: N30.01 Acute cystitis with hematuria (principal); E87.6 Hypokalemia
CPT/HCPCS: 36415; 80053; 81001; 83605; 83880; 84484; 85025; 85379; 87077; 87086; 87186; 99283

== ENCOUNTER → 2024-04-08 11:15 | Outpatient (CLI) | payer MEDICARE, MEDICAID, SELFPAY ==
[2022-09-21 15:46] VITALS: BMI 32.2
[2024-04-08 15:00] LABS: Alanine Aminotransferase 31 IU/L (<35); Albumin 3.9 g/dL (3.5-5.0); Albumin Globulin Ratio 1.6 (1.0-2.8); Alkaline Phosphatase 135 U/L (38-126); Aspartate Aminotransferase 36 IU/L (14-36); BUN Creatinine Ratio 22.7 (6-22); Bilirubin Total 0.5 mg/dL (0.2-1.3); Blood Urea Nitrogen 27 mg/dL (7-17); Calcium 9.4 mg/dL (8.4-10.2); Carbon Dioxide 30 mmol/L (22-32); Chloride 98 mmol/L (98-107); Estimated Glomerular Filt Rate 48 mL/min (>60); Globulin 2.5 g/dL (1.7-4.1); Glucose 90 mg/dL (80-110); HEMOLYSIS < 15 (0-50); Potassium 4.1 mmol/L (3.4-5.1); Sodium 136 mmol/L (137-145); Total Protein 6.4 g/dL (6.3-8.2)
== END ==
PROVIDERS: PCP Nurse Practitioner Family; Referring Provider Nurse Practitioner Family; Visit Provider Nurse Practitioner Family
DX: I10 Essential (primary) hypertension (principal)
CPT/HCPCS: 36415; 80053

== ENCOUNTER → 2024-06-13 19:31 | Outpatient (ROUT) | payer MEDICARE, MEDICAID, SELFPAY ==
[2022-09-21 15:46] VITALS: BMI 32.2
[2024-06-13 19:45] LABS: Appearance Urine UA CLEAR; Bilirubin Urine UA NEGATIVE (NEGATIVE); Color Urine UA YELLOW; Glucose Urine UA NEGATIVE (Negative); Ketones Urine UA NEGATIVE (NEGATIVE); Leukocyte Esterase Urine UA 3+ (NEGATIVE); Nitrite Urine UA POSITIVE (Negative); Occult Blood Urine UA 3+ (Negative); Protein Urine UA 1+ (Negative); Urobilinogen Urine UA 0.2 E.U./dL (0.2)
[2024-06-13 20:01] LABS: Bacteria Urine Many (>30); Culture Indicated Urine Specimen Cultured; RBC Urine 5-10/HPF (0-5/HPF); Squamous Epithelial Cell Urine 5-10 /HPF (0-5/HPF); Urine Volume 10mL (spun); WBC Urine 5-10/HPF (0-5/HPF)
== END ==
PROVIDERS: PCP Nurse Practitioner Family; Visit Provider Nurse Practitioner Family
DX: R30.0 Dysuria (principal); R35.0 Frequency of micturition; N39.41 Urge incontinence
CPT/HCPCS: 81001; 87077; 87086; 87186

== ENCOUNTER → 2024-07-08 17:27 | Outpatient (ROUT) | payer MEDICARE, MEDICAID, SELFPAY ==
[2022-09-21 15:46] VITALS: BMI 32.2
[2024-07-08 17:40] LABS: Appearance Urine UA TURBID; Bilirubin Urine UA NEGATIVE (NEGATIVE); Color Urine UA YELLOW; Glucose Urine UA NEGATIVE (Negative); Ketones Urine UA TRACE (NEGATIVE); Leukocyte Esterase Urine UA 3+ (NEGATIVE); Nitrite Urine UA POSITIVE (Negative); Occult Blood Urine UA 2+ (Negative); Protein Urine UA TRACE (Negative); Specific Gravity Urine UA 1.015 (1.000-1.035); Urobilinogen Urine UA 0.2 E.U./dL (0.2)
[2024-07-08 17:47] LABS: Bacteria Urine Many (>30); Culture Indicated Urine Specimen Cultured; RBC Urine 1-5/HPF (0-5/HPF); Squamous Epithelial Cell Urine 0-1 /HPF (0-5/HPF); Urine Volume 10mL (spun); WBC Urine >100/HPF (0-5/HPF)
== END ==
PROVIDERS: PCP Nurse Practitioner Family; Visit Provider Nurse Practitioner Family
DX: R30.0 Dysuria (principal); R35.0 Frequency of micturition; N39.41 Urge incontinence
CPT/HCPCS: 81001; 87077; 87086; 87186

== ENCOUNTER → 2024-08-08 18:03 | Outpatient (ROUT) | payer MEDICARE, MEDICAID, SELFPAY ==
[2022-09-21 15:46] VITALS: BMI 32.2
[2024-08-08 18:32] LABS: Appearance Urine UA CLEAR; Bilirubin Urine UA NEGATIVE (NEGATIVE); Color Urine UA YELLOW; Glucose Urine UA NEGATIVE (Negative); Ketones Urine UA NEGATIVE (NEGATIVE); Leukocyte Esterase Urine UA TRACE (NEGATIVE); Nitrite Urine UA POSITIVE (Negative); Occult Blood Urine UA NEGATIVE (Negative); Protein Urine UA NEGATIVE (Negative); Specific Gravity Urine UA 1.015 (1.000-1.035); Urobilinogen Urine UA 0.2 E.U./dL (0.2)
[2024-08-08 18:34] LABS: pH Urine UA 5.5 (4.5-8.0)
[2024-08-08 18:39] LABS: Bacteria Urine Many (>30); Culture Indicated Urine Specimen Cultured; Mucus Urine 1+ (Negative); RBC Urine 0-1/HPF (0-5/HPF); Squamous Epithelial Cell Urine 0-1 /HPF (0-5/HPF); Urine Volume 10mL (spun); WBC Urine 1-5/HPF (0-5/HPF)
== END ==
PROVIDERS: Internal Medicine; PCP Nurse Practitioner Family
DX: Z13.89 Encounter for screening for other disorder (principal)
CPT/HCPCS: 81001; 87077; 87086; 87186

== ENCOUNTER → 2025-03-11 08:50 | Outpatient (ROUT) | payer MEDICARE, MEDICAID, SELFPAY ==
[2022-09-21 15:46] VITALS: BMI 32.2
[2025-03-11 09:44] LABS: Blood Urea Nitrogen 23 mg/dL (7-17); Calcium 9.5 mg/dL (8.4-10.2); Carbon Dioxide 26 mmol/L (22-32); Chloride 105 mmol/L (98-107); Estimated Glomerular Filt Rate 56 mL/min (>60); Glucose 91 mg/dL (70-99); HEMOLYSIS < 15 (0-50); Potassium 3.8 mmol/L (3.4-5.1); Sodium 140 mmol/L (137-145)
== END ==
PROVIDERS: PCP Nurse Practitioner Family; Visit Provider Hospitalist
DX: U07.1 COVID-19 (principal)
CPT/HCPCS: 36415; 80048

== ENCOUNTER → 2025-06-13 10:32 | Outpatient (ROUT) | payer MEDICARE, MEDICAID, SELFPAY ==
[2022-09-21 15:46] VITALS: BMI 32.2
[2025-06-13 10:46] LABS: Appearance Urine UA SL CLOUDY; Bilirubin Urine UA NEGATIVE (NEGATIVE); Color Urine UA ORANGE; Glucose Urine UA NEGATIVE (Negative); Ketones Urine UA TRACE (NEGATIVE); Leukocyte Esterase Urine UA 1+ (NEGATIVE); Nitrite Urine UA POSITIVE (Negative); Occult Blood Urine UA NEGATIVE (Negative); Protein Urine UA NEGATIVE (Negative); Specific Gravity Urine UA 1.025 (1.000-1.035); Urobilinogen Urine UA 0.2 E.U./dL (0.2)
[2025-06-13 10:48] LABS: pH Urine UA 5.5 (4.5-8.0)
[2025-06-13 10:49] LABS: Culture Indicated Urine Specimen Cultured
== END ==
PROVIDERS: PCP Nurse Practitioner Family; Visit Provider Hospitalist
DX: R30.0 Dysuria (principal)
CPT/HCPCS: 81001; 87077; 87086; 87186